=== PATIENT | male | born 1990 | race Caucasian/White ===

== ENCOUNTER 2017-09-27 14:51 | Emergency (ER) | payer OTHER ==
[~2017-09-27] VITALS: Ht 170.2 cm; Wt 46.7 kg
--- OUTSIDE RECORDS SUMMARY | ~2017-09-27 | XMS | Clinical Summary ---
Demographics + + + | Address | [address] [place] [address] RD | | | [place] [address] | + + + | Home Phone | | + + + | Preferred Language | Unknown | + + + | Marital Status | Single | + + + | Latter Day Affiliation | ORTHODOX | + + + | Race | White | + + + | Ethnic Group | Not or | + + + Author + + + | Author | [facility] | + + + | Organization | [facility] | + + + | Address | Unknown | + + + | Phone | Unavailable | + + + Support + + + + + | Name | Relationship | Address | Phone | + + + + + | Clinton Kim | ECON | [address] | | | | | [place] | | | | | [address] | | + + + + + Care Team Providers + +------+ + | Care Die Sinking Machine Operator Name | Role | Phone | + +------+ + | Misc, Doctor | PP | Unavailable | + +------+ + Allergies + + + +--------+ + | Active Allergy | Reactions | Severity | Noted | Comments | | | | | Date | | + + + +--------+ + | Morphine | | | | | + + + +--------+ + Current Medications + + +-------+---------+------+------+-------+ | Prescription | Sig. | Disp. | Refills | Star | End | Statu | | | | | | t | Date | s | | | | | | Date | | | + + +-------+---------+------+------+-------+ | levetiracetam | Take 6 mLs by mouth | | 12 | 06/1 | | Activ | | (KEPPRA) 100 mg/mL | 2 Times Daily As | | | 8/20 | | e | | solution | Needed. | | | 10 | | | + + +-------+---------+------+------+-------+ | lansoprazole | Take 1 tablet by | | 0 | 06/1 | | Activ | | (PREVACID SOLUTAB) | mouth Daily. | | | 7/20 | | e | | 30 mg disintegrating | | | | 10 | | | | tablet | | | | | | | + + +-------+---------+------+------+-------+ | cloNIDine | Take 1 tablet by | | 3 | 06/1 | | Activ | | (CATAPRES) 0.1 mg | mouth At Bedtime. | | | 7/20 | | e | | tablet | | | | 10 | | | + + +-------+---------+------+------+-------+ | glycopyrrolate | Take 2 tablets by | | 0 | 06/1 | | Activ | | (ROBINUL) 1 mg | mouth Daily. | | | 7/20 | | e | | tablet | | | | 10 | | | + + +-------+---------+------+------+-------+ | polyethylene | Take 1 packet by | | 0 | 06/1 | | Activ | | glycol (MIRALAX) 17 | mouth Daily As | | | 7/20 | | e | | gram/dose powder | Needed. | | | 10 | | | + + +-------+---------+------+------+-------+ | amLODIPine | Take 1 tablet by | | 6 | 06/ | | Activ | | (NORVASC) 5 mg | mouth Daily. | | | 7/20 | | e | | tablet | | | | 10 | | | + + +-------+---------+------+------+-------+ Active Problems Not on file Social History + +-------+ +--------+------+ | Tobacco Use | Types | Packs/Day | Years | Date | | | | | Used | | + +-------+ +--------+------+ | Never Assessed | | | | | + +-------+ +--------+------+ + + + | Sex Assigned at | Date Recorded | | | | + + + | Not on file | | + + + Plan of Treatment + + + + + | Health Maintenance | Due Date | Last Done | Comments | + + + + + | HIV Screening | | | | | | 8 | | | + + + + + | Tetanus | | | | | | 2 | | | + + + + + | IMM Influenza (#1) | | | | | | 7 | | | + + + + + | IMM HPV | Aged Out | | No longer eligible | | | | | based on patient's | | | | | age to complete this | | | | | topic | + + + + + Results Not on filefrom Last 3 Months Insurance + +--------+ +--------+ + + | Payer | Benefi | Subscriber | Type | Phone | Address | | | t Plan | ID | | | | | | / | | | | | | | Group | | | | | + +--------+ +--------+ + + | MODA ODS | MODA | [id number] | PPO | [phone] | [address] [address] | | | CONNEX | | | [phone] | [place], [place] | | | [place] | | | | [phone] | | | NETWOR | | | | | | | K PPO | | | | | + +--------+ +--------+ + + | [place]ICA[place] | MEDICA | [id number] | Medica | [phone] [address] [address] | | | [place] | | id | [id number] | [place] [phone] | | | DMAP | | | | | + +--------+ +--------+ + + + +--------+ +--------+ + + | Guarantor Name | Accoun | Relation to | Date | Phone | Billing Address | | | t Type | Patient | of | | | | | | | | | | + +--------+ +--------+ + + | CLINTON KIM | Person | Mother | [birth year] | Home: | [address] | | | al/Fam | | 1959 | [phone] | [place] [address] | | | roya | | | [phone] | | + +--------+ +--------+ + +"
--- OUTSIDE RECORDS SUMMARY | ~2017-09-27 | XMS | Clinical Summary ---
Demographics + + + | Address | [address] [place] [address] RD | | | [place] [address] | + + + | Home Phone | | + + + | Preferred Language | Unknown | + + + | Marital Status | Single | + + + | Synagogue Affiliation | MET | + + + [...] Team Providers + +------+ + | Care Push Connector Assembler Name | Role | Phone | + +------+ + | Augusto Karimi MD | PP | | + +------+ + Source Comments LINDABECK is fully live on both EpicCare Ambulatory and EpicCare InPatient.[facility] Allergies + + + + + + [...] | Activ | | Magnesium (NEXIUM | tube-termite control servicer | | | | | e | [...] | | | | Activ | | seecqyqonhhj-iyor-vi | once daily. | | | | [...] | | + + + + | Fysasdefa-J4Q9-31 | 06/04/2009 | | + + + [...] | | 2013 | 0 | | [id number]: Qty: 1 | | [place] | | [...] | | | | | | | [address] | + +------+--------+ +--------+--------+--------+ | Tisseel Vh Sd 4ml (Fibrin | | N/A: | KEITA | | 03/02/ | [id number] | | Glue) Dehp - | | Spine | HEALTHCARE | | 2014 | 7 | | [id number]: Qty: | | | | | | /[id number] | | 1 on 07/24/2013 by Preston, | | | | | | [id number] | | MD Crow | | | | | | 7 | | | | | | | | /[id number] | | | | | | | | 094 | + +------+--------+ +--------+--------+--------+ | Implant Duragen Suturable 1 X | | N/A: | INTEGRA | | 11/30/ | DURS13 | | 3 - [id number]: Qty: | | Spine | LIFESCIENCE | | 2014 | 91 / | | 1 on 09/02/2013 by Preston, | | | S | | | /[id number] | | MD Crow | | | | | | 12 | + +------+--------+ +--------+--------+--------+ | Tisseel Frozen 10ml - | | N/A: | KEITA | | 01/30/ | [id number] | | [id number]: Qty: 1 on | | Spine | [...]
--- OUTSIDE RECORDS SUMMARY | ~2017-09-27 | XMS | Clinical Summary ---
Demographics + + + | Address | [address] [place] [address] RD | | | [place] [address] | + + + | Home Phone | | + + + | Preferred Language | Unknown | + + + | Marital Status | Single | + + + | Buddhism Affiliation | MET | + + + [...] Team Providers + +------+ + | Care Instrument Technician Name | Role | Phone | + +------+ + | Augusto Karimi MD | PP | | + +------+ + Source Comments LINDABECK is fully live on both EpicCare Ambulatory and EpicCare InPatient.[facility] Allergies + + + + + [...] Activ | | Magnesium (NEXIUM | tube-terminal computer operator | | | | | e | [...] | | | | Activ | | mohpzzqozqbz-umts-ow | once daily. | | | | [...] | | + + + + | Vtqcetgpc-B2A7-24 | 06/04/2009 | | + + + [...] | | 2013 | 0 | | [id number]: Qty: 1 | | [place] | | [...] | | | | | | | [address] | + +------+--------+ +--------+--------+--------+ | Tisseel Vh Sd 4ml (Fibrin | | N/A: | KEITA | | 03/02/ | [id number] | | Glue) Dehp - | | Spine | HEALTHCARE | | 2014 | 7 | | [id number]: Qty: | | | | | | /[id number] | | 1 on 07/24/2013 by Preston, | | | | | | [id number] | | MD Crow | | | | | | 7 | | | | | | | | /[id number] | | | | | | | | 094 | + +------+--------+ +--------+--------+--------+ | Implant Duragen Suturable 1 X | | N/A: | INTEGRA | | 11/30/ | DURS13 | | 3 - [id number]: Qty: | | Spine | LIFESCIENCE | | 2014 | 91 / | | 1 on 09/02/2013 by Preston, | | | S | | | /[id number] | | MD Crow | | | | | | 12 | + +------+--------+ +--------+--------+--------+ | Tisseel Frozen 10ml - | | N/A: | KEITA | | 01/30/ | [id number] | | [id number]: Qty: 1 on | | Spine | [...]
--- OUTSIDE RECORDS SUMMARY | ~2017-09-27 | XMS | Clinical Summary ---
Demographics + + + | Address | [address] [place] [address] RD | | | [place] [address] | + + + | Home Phone | | + + + | Preferred Language | Unknown | + + + | Marital Status | Single | + + + | Scientology Affiliation | HINDUISM | + + + | Race | [...] | + + + + + | lCinton Kim | ECON | [address] | | | | | [place] | | | | | [address] | | + + + + + Care Team Providers + +------+ + | Care Steel Spar Operator Name | Role | Phone | [...] + | MODA ODS | MODA | [id number] | PPO | [phone] | [address] [address] | | | CONNEX | | | [phone] | [place], [place] | | | [place] | | | | [phone] | | | NETWOR | | | | | | | K PPO | | | | | + +--------+ +--------+ + + | MEDICAID [place] | MEDICA | [id number] | Medica | [phone] | [address] [address] | | | [place] | | id | [phone] | [place] [phone] | | | DMAP | | | [...] | Mother | [birth year] | Home: | [address] | | | al/Fam | | 1959 | [phone] | [place] [address] | | | roya | | | [phone] | | + +--------+ +--------+ + +"
[~2017-09-27 14:51] MED LIST: ACETAMINOPHEN12.5 ML PO; ACETAMINOPHEN325 M1 PO; ACETAMINOPHEN325 M1 PT; ACETAMINOPHEN500 MG PT; ACIDOPHILUS1 EAC3 PO; ALOE VERA JUICE GT; AMBIEN5 MG GT; AMOXICILLI250 MG/5 M PT; ATIVAN0.5 MG PO; BACLOFEN PUMP IT; BACLOFEN10 MG GT; BACLOFEN20 MG PO; BACTRIM DS TAB1 EACH PO; BENADRYL A12.5 MG/5 PT; BENADRYL25 MG PO; BISAC-EVAC10 MG PR; CARAFATE1 GM GT; CARAFATE1 GM PO; CENTRUM MU9 MG/15 ML PT; CIPROFLOXACIN500 MG PT; CLEOCIN HCL300 MG PO; CYPROHEPTADINE H4 MG PO; DESITIN DIAPER28 GM TOP; FLAGYL500 MG PO; GABLOFEN IT; GAS FREE125 MG GT; GAVISCON ES TA1 EACH PO; GERITOL TONIC118 ML PT; JEVITY 1.2 CA1500 ML GT; JEVITY 1.5 CA1000 ML PO; KEPPRA100 MG/1 M PO; LEVAQUIN500 MG PO; LIDOCAINE HCL100 ML TOP; MAG-OXIDE400 MG PT; MARIJUANA GT; MIRALAX17 GM PO; NEXIUM20 MG PO; NEXIUM20 MG PT; NEXIUM40 M1 PT; NEXIUM40 MG GT; NYSTOP60 GM TOP; OMEPRAZOLE20 M1 PO; OXYCODONE HCL5 MG PO; PHENADOZ25 MG PR; PHENERGAN25 MG PR; PROBIOTIC1 EAC1 GT; REGLAN10 MG PO; SENNOSIDES8.6 MG PT; SENOKOT8.6 MG PO; SIMETHICONE80 MG PO; SUCRALFATE1 GM PO; SULFAMETHOXAZO473 ML PO; TIZANIDINE HCL4 MG GT; TRANSDERM-SCOP1 EA TD; ZANAFLEX4 MG PO; ZOFRAN4 MG/5 ML PO; [UNRECOGNIZED DRUG - OTHER]; [UNRECOGNIZED DRUG - OTHER] IT; baclofen pump
[2017-09-27] MEDS ORDERED: BACLOFEN10 MG PT (15:17)
[2017-09-27] MEDS ORDERED: CETIRIZINE1 MG/1 ML PO (15:22)
[2017-09-27] MEDS ORDERED: PERCOCET 7.5-31 EACH PO (18:19)
[2017-09-27] MEDS ORDERED: XANAX0.5 MG PO (18:19)
[2017-09-27] MEDS ORDERED: LEVAQUIN500 MG PO (18:20)
== END 2017-09-27 18:29 | disposition home or self-care (01) ==
LOC: ED 14:51
PROC: 0T9B70Z Drainage of Bladder with Drainage Device, Via Natural or Artificial Opening (ICD-10-PCS; principal; 2017-09-27)
DX: N39.0 Urinary tract infection, site not specified (principal); K21.9 Gastro-esophageal reflux disease without esophagitis; Z88.5 Allergy status to narcotic agent; Z88.8 Allergy status to other drugs, medicaments and biological substances; Z88.1 Allergy status to other antibiotic agents; Z79.899 Other long term (current) drug therapy
CPT/HCPCS: 51701; 74177; 80053; 81001; 83690; 85025; 96374; 96375; 96376; 99284; J1170; J2060; J2405; J7030; Q9967

== ENCOUNTER 2017-09-28 12:51 | Inpatient (IN) | payer OTHER ==
[~2017-09-28] VITALS: Ht 170.2 cm; Wt 49.0 kg
[~2017-09-28 12:51] MED LIST changes: +BACLOFEN10 MG PT; +CETIRIZINE1 MG/1 ML PO; +PERCOCET 7.5-31 EACH PO; +XANAX0.5 MG PO
--- OUTSIDE RECORDS SUMMARY | 2017-09-28 13:14 | XMS | Clinical Summary ---
Demographics + + + | Address | [address] [place] [address] RD | | | [place] [address] | + + + | Home Phone | | + + + | Preferred Language | Unknown | + + + | Marital Status | Single | + + + | Congregation Affiliation | MET | + + + | Race | White | + + + | Ethnic Group | Not or | + + + Author + + + | Author | NON REVENUE LOCATIONS | + + + | Organization | NON REVENUE LOCATIONS | + + + | Address | Unknown | + + + | Phone | Unavailable | + + + Care Team Providers + +------+ + | Care School Psychology Specialist Name | Role | Phone | + +------+ + | Augusto Karimi MD | PP | | + +------+ + Source Comments LINDABECK is fully live on both EpicCare Ambulatory and EpicCare InPatient.[facility] Allergies + + + + + + | Active Allergy | Reactions | Severity | Noted | Comments | | | | | Date | | + + + + + + | Amoxicillin | Unknown | Medium | 04/16/20 | hepatitis | | | | | 13 | | + + + + + + | Morphine | Hives | | 05/05/20 | Tolerates | | | | | 09 | hydromorphone | + + + + + + | Oxacillin | Unknown | High | 04/16/20 | aplastic anemia | | | | | 13 | | + + + + + + | Vancomycin | | | 10/04/19 | 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 | + + + + + + Current Medications + + +---------+---------+------+------+-------+ | Prescription | Sig. | Disp. | Refills | Star | End | Statu | | | | | | t | Date | s | | | | | | Date | | | + + +---------+---------+------+------+-------+ | ondansetron 4 mg/5 | Take 5 mL by mouth | 50 mL | 1 | 05/1 | | Activ | | mL Oral Solution | every eight hours as | | | 2/20 | | e | | | needed for | | | 12 | | | | | nausea/vomiting. | | | | | | + + +---------+---------+------+------+-------+ | Esomeprazole | 40 mg by Jejunostomy | | | | | Activ | | Magnesium (NEXIUM | tube-intermediate manager | | | | | e | | PACKET) 40 mg Oral | route two times | | | | | | | Granules DR for susp | daily. Indications: | | | | | | | in | GASTROESOPHAGEAL | | | | | | | PacketIndications: | REFLUX | | | | | | | gastroesophageal | | | | | | | | reflux disease | | | | | | | + + +---------+---------+------+------+-------+ | sucralfate 1 gram | 1 g by Gastric tube | | | | | Activ | | Oral | route two times | | | | | e | | tabletIndications: | daily. Indications: | | | | | | | gastroesophageal | GASTROESOPHAGEAL | | | | | | | reflux disease | REFLUX | | | | | | + + +---------+---------+------+------+-------+ | acetaminophen 500 | Take 500 mg by mouth | | | | | Activ | | mg oral tablet | every four hours as | | | | | e | | | needed (through G | | | | | | | | tube). | | | | | | + + +---------+---------+------+------+-------+ | MEDICAL MARIJUANA | four times daily. | | | | | Activ | | | | | | | | e | + + +---------+---------+------+------+-------+ | baclofen 20 mg | Take 20 mg by mouth | | | | | Activ | | oral tablet | three times daily. | | | | | e | + + +---------+---------+------+------+-------+ | | Take 15 mL by mouth | | | | | Activ | | tewkaslhteig-huvc-lv | once daily. | | | | | e | | nerals 9 mg iron/15 | | | | | | | | mL oral liquid | | | | | | | + + +---------+---------+------+------+-------+ | Cetirizine 5 mg/5 | Take by mouth once | | | | | Activ | | mL oral solution | daily. | | | | | e | + + +---------+---------+------+------+-------+ | geriatric iron-vit | Take by mouth once | | | | | Activ | | B complex oral | daily. | | | | | e | | liquid | | | | | | | + + +---------+---------+------+------+-------+ | POLOXAMER (ORAL | Use as directed | | | 03/03 | | Activ | | HYGIENE PRODUCTS DT) | | | | 10/20 | | e | | | | | | 12 | | | + + +---------+---------+------+------+-------+ | LACTOBACILLUS | by Per G Tube route. | | | | | Activ | | ACIDOPHILUS | | | | | | e | | (PROBIOTIC ORAL) | | | | | | | + + +---------+---------+------+------+-------+ | | 1 tablet by feeding | 20 | 0 | 05/04 | | Activ | | trimethoprim-sulfame | tube route two times | tablet | | 0 | | e | | thoxazole 160-800 mg | daily. | | | 15 | | | | oral tablet | | | | | | | + + +---------+---------+------+------+-------+ | SENNA 8.6 mg oral | | | 0 | 07/03 | | Activ | | tablet | | | | 02/19 | | e | | | | | | 16 | | | + + +---------+---------+------+------+-------+ | amoxicillin 250 | | | 0 | 01/1 | | Activ | | mg/5 mL oral | | | | 8/20 | | e | | suspension for | | | | 16 | | | | reconstitution | | | | | | | + + +---------+---------+------+------+-------+ | PHENADOZ 25 mg | | | 0 | 01/1 | | Activ | | rectal suppository | | | | 8/20 | | e | | | | | | 16 | | | + + +---------+---------+------+------+-------+ | lidocaine viscous | | | 0 | 01/2 | | Activ | | 2 % mucous membrane | | | | 0/20 | | e | | solution | | | | 16 | | | + + +---------+---------+------+------+-------+ | LAXATIVE, | | | 0 | 01/1 | | Activ | | BISACODYL, 10 mg | | | | 8/20 | | e | | rectal suppository | | | | 16 | | | + + +---------+---------+------+------+-------+ | ALLERGY | | | 0 | / | | Activ | | RELIEF,DIPHENHYDRAMI | | | | 02/19 | | e | | N, 12.5 mg/5 mL oral | | | | 16 | | | | liquid | | | | | | | + + +---------+---------+------+------+-------+ Active Problems + + + | Problem | Noted Date | + + + | Acquired megacolon | 05/22/2015 | + + + | Pneumonia due to Pseudomonas (HCC) | 05/22/2015 | + + + | Community acquired pneumonia | 12/18/2013 | + + + | Pain | 12/16/2013 | + + + | Cerebral palsy, quadriplegic (HCC) | 09/21/2013 | + + + | Urinary retention | 09/21/2013 | + + + | Failure to thrive in adult | 09/21/2013 | + + + | Baclofen pump failure | 07/24/2013 | + + + | RED CELL ANTIBODIES - allow additional time for crossmatch | 07/23/2013 | + + + + + | Overview: 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 These antibodies can | | cause hemolytic anemia and interfere with identification of other | | antibodies and compatibility testing. Allow at 4-6 hours for | | completion of compatibility testing. | + + + + + | Abdominal pain | 07/17/2013 | + + + | Withdrawal syndrome, baclofen | 07/09/2013 | + + + | UTI (lower urinary tract infection) | 06/21/2013 | + + + | Spasticity | 04/16/2013 | + + + | Sepsis (HCC) | 10/29/2011 | + + + + + | Overview: ICD10 | + + + + + | Altered bowel function | 08/17/2011 | + + + | CN (constipation) | 08/17/2011 | + + + + + | Overview: Overview: | | ICD-10 Record update | + + + + + | Acid reflux | 08/17/2011 | + + + | S/P spinal fusion | 02/08/2011 | + + + | Esophagitis | 09/23/2010 | + + + | Diarrhea | 09/23/2010 | + + + | Hypoxia, sleep related | 09/23/2010 | + + + | Static encephalopathy | 09/12/2010 | + + + | Scoliosis | 09/12/2010 | + + + | Colonic dysmotility | 09/12/2010 | + + + | Seizure disorder (HCC) | 09/12/2010 | + + + | Feeding by G-tube (HCC) | 09/12/2010 | + + + | Reflux | 09/12/2010 | + + + | Hypotension | 09/12/2010 | + + + | Bacteremia | 09/12/2010 | + + + | Vomiting | 08/31/2010 | + + + Immunizations + + + + | Name | Dates Previously Given | Next Due | + + + + | DTP-Hib | 12/29/1993 | | + + + + | DTaP | 11/19/1997, 05/05/1993, 1992 | | + + + + | HepA-Ped 2 Dose | 05/11/2004, 09/30/2003 | | + + + + | HepB-Peds | 05/05/1993, 1992 | | + + + + | Hib-OMP | 05/05/1993, 1992 | | + + + + | Influenza, split | 04/13/2009, 05/01/2007, 05/11/2004, | | | | 04/23/1998, 05/11/1995, 06/20/1994 | | + + + + | Uxgfhkazw-Z8I8-83 | 06/04/2009 | | + + + + | MCV4P | 05/01/2007 | | + + + + | MMR | 11/19/1997, 12/29/1993 | | + + + + | Polio-Oral | 11/19/1997, 12/29/1993, 1992 | | + + + + | Td (adult), adsorbed | 09/30/2003 | | + + + + | Tdap | 05/01/2007 | | + + + + Social History + +-------+ +--------+------+ | Tobacco Use | Types | Packs/Day | Years | Date | | | | | Used | | + +-------+ +--------+------+ | Never Smoker | | | | | + +-------+ +--------+------+ + +---+---+---+ | Smokeless Tobacco: | | | | | Never Used | | | | + +---+---+---+ + + +---------+ + | Alcohol Use | Drinks/We | oz/Week | Comments | | | ek | | | + + +---------+ + | No | 0 | 0.0 | | | | Standard | | | | | drinks or | | | | | | | | | | equivalen | | | | | t | | | + + +---------+ + + + + | Sex Assigned at | Date Recorded | | | | + + + | Not on file | | + + + Last Filed Vital Signs + + + + | Vital Sign | Reading | Time Taken | + + + + | Blood Pressure | 121/75 | 05/14/2015 11:44 AM PST | + + + + | Pulse | 86 | 05/22/2015 4:10 PM PST | + + + + | Temperature | 37 C (98.6 F) | 05/14/2015 11:44 AM PST | + + + + | Respiratory Rate | 18 | 05/14/2015 11:44 AM PST | + + + + | Oxygen Saturation | 99% | 05/14/2015 11:44 AM PST | + + + + | Inhaled Oxygen | - | - | | Concentration | | | + + + + | Weight | 42.3 kg (93 lb 3.2 | 05/21/2015 10:42 AM PST | | | oz) | | + + + + | Height | 170.2 cm (5' 7") | 05/21/2015 10:42 AM PST | + + + + | Body Mass Index | 14.6 | 05/21/2015 10:42 AM PST | + + + + Plan of Treatment + + + + + | Health Maintenance | Due Date | Last Done | Comments | + + + + + | INFLUENZA VACCINE | | 04/13/2009, 05/01/2007, | | | (FLU SHOT): NO | 7 | 05/11/2004, Additional history | | | MYCHART REMINDER | | exists | | + + + + + Implants + +------+--------+ +--------+--------+--------+ | Implanted | Type | Area | Manufacture | Device | Expira | Model | | | | | r | | tion | / | | | | | | Identi | Date | Serial | | | | | | fier | | / Lot | + +------+--------+ +--------+--------+--------+ | Pump Implantable Synchromed | | Right: | MEDTRONIC | | 05/02/ | [id number] | | Ii 40ml - | | | [place] | | 2013 | 0 | | [id number]: Qty: 1 | | [place] | | | | /[id number] | | on 04/29/2013 by Preston, | | n | | | | [id number] | | MD Crow | | | | | | / | + +------+--------+ +--------+--------+--------+ | Ascenda Intrathecal | | Right: | MEDTRONIC | | 08/14/ | [id number] / | | CatheterImplanted: Qty: 1 on | | Spine | NEUROLOGICA | | 2015 | | | 07/24/2013 by Crow Johnston, | | | L | | | /[id number] | | | | | | | | [id number] | + +------+--------+ +--------+--------+--------+ | Tisseel Vh Sd 4ml (Fibrin | | N/A: | KEITA | | 03/02/ | [id number] | | Glue) Dehp - | | Spine | HEALTHCARE | | 2014 | 7 | | [id number]: Qty: | | | | | | /[id number] | | 1 on 07/24/2013 by Preston, | | | | | | [id number] | | MD Crow | | | | | | 7 | | | | | | | | /[id number] | | | | | | | | 094 | + +------+--------+ +--------+--------+--------+ | Implant Duragen Suturable 1 X | | N/A: | INTEGRA | | 11/30/ | DURS13 | | 3 - [id number]: Qty: | | Spine | LIFESCIENCE | | 2014 | 91 / | | 1 on 09/02/2013 by Preston, | | | S | | | /[id number] | | MD Crow | | | | | | 12 | + +------+--------+ +--------+--------+--------+ | Tisseel Frozen 10ml - | | N/A: | KEITA | | 01/30/ | [id number] | | [id number]: Qty: 1 on | | Spine | HEALTHCARE | | 2014 | 3 / | | 09/02/2013 by Crow Johnston, | | | | | | /[id number] | | MD | | | | | | 074 | + +------+--------+ +--------+--------+--------+ + +------+-------+ +--------+--------+--------+ | Explanted | Type | Area | Manufacture | Device | Expira | Model | | | | | r | | tion | / | | | | | | Identi | Date | Serial | | | | | | fier | | / Lot | + +------+-------+ +--------+--------+--------+ | Intrathecal | | N/A: | | | | | | CatheterExplanted: Qty: 1 on | | Spine | | | | | | 07/24/2013 by Crow Johnston, | | | | | | | | MD | | | | | | | + +------+-------+ +--------+--------+--------+ Results Not on filefrom Last 3 Months
--- OUTSIDE RECORDS SUMMARY | 2017-09-28 13:14 | XMS | Clinical Summary ---
Demographics + + + | Address | [address] [place] [address] RD | | | [place] [address] | + + + | Home Phone | | + + + | Preferred Language | Unknown | + + + | Marital Status | Single | + + + | Adventism Affiliation | MET | + + + [...] Team Providers + +------+ + | Care Indian Nanny Name | Role | Phone | + +------+ + | Augusto Karimi MD | PP | | + +------+ + Source Comments LINDABECK is fully live on both EpicCare Ambulatory and EpicCare InPatient.[facility] Allergies + + + + + + [...] | Activ | | Magnesium (NEXIUM | tube-longwall foreman | | | | | e | [...] | | | | Activ | | dclsfbfoafvc-qokt-pn | once daily. | | | | [...] | | + + + + | Xrqllqvwy-L2L4-89 | 06/04/2009 | | + + + [...] | | 2013 | 0 | | [id number]: Qty: 1 | | [place] | | [...] | | | | | | | [address] | + +------+--------+ +--------+--------+--------+ | Tisseel Vh Sd 4ml (Fibrin | | N/A: | KEITA | | 03/02/ | [id number] | | Glue) Dehp - | | Spine | HEALTHCARE | | 2014 | 7 | | [id number]: Qty: | | | | | | /[id number] | | 1 on 07/24/2013 by Preston, | | | | | | [id number] | | MD Crow | | | | | | 7 | | | | | | | | /[id number] | | | | | | | | 094 | + +------+--------+ +--------+--------+--------+ | Implant Duragen Suturable 1 X | | N/A: | INTEGRA | | 11/30/ | DURS13 | | 3 - [id number]: Qty: | | Spine | LIFESCIENCE | | 2014 | 91 / | | 1 on 09/02/2013 by Preston, | | | S | | | /[id number] | | MD Crow | | | | | | 12 | + +------+--------+ +--------+--------+--------+ | Tisseel Frozen 10ml - | | N/A: | KEITA | | 01/30/ | [id number] | | [id number]: Qty: 1 on | | Spine | [...]
--- OUTSIDE RECORDS SUMMARY | 2017-09-28 15:27 | XMS | Clinical Summary ---
Demographics + + + | Address | [address] [place] [address] RD | | | [place] [address] | + + + | Home Phone | | + + + | Preferred Language | Unknown | + + + | Marital Status | Single | + + + | Hindu Affiliation | MET | + + + [...] Team Providers + +------+ + | Care Diamond Powder Technician Name | Role | Phone | + +------+ + | Augusto Karimi MD | PP | | + +------+ + Source Comments LINDABECK is fully live on both EpicCare Ambulatory and EpicCare InPatient.[facility] Allergies + + + + [...] | Activ | | Magnesium (NEXIUM | tube-terminal supervisor | | | | | e | [...] | | | | Activ | | xdwpqgfvfyuf-hrtu-bb | once daily. | | | | [...] | | + + + + | Wghzsqkyy-X7H0-81 | 06/04/2009 | | + + + [...] | | 2013 | 0 | | [id number]: Qty: 1 | | Abdome | | [...] | | | | | | | [id number] | + +------+--------+ +--------+--------+--------+ | Tisseel Vh Sd 4ml (Fibrin | | N/A: | KEITA | | 03/02/ | [id number] | | Glue) Dehp - | | Spine | HEALTHCARE | | 2014 | 7 | | [id number]: Qty: | | | | | | /[id number] | | 1 on 07/24/2013 by Preston, | | | | | | [id number] | | MD Crow | | | | | | 7 | | | | | | | | /[id number] | | | | | | | | [id number] | + +------+--------+ +--------+--------+--------+ | Implant Duragen Suturable 1 X | | N/A: | INTEGRA | | 11/30/ | [id number] | | 3 - [id number]: Qty: | | Spine | LIFESCIENCE | | 2014 | 91 / | | 1 on 09/02/2013 by Preston, | | | S | | | /[id number] | | MD Crow | | | | | | 12 | + +------+--------+ +--------+--------+--------+ | Tisseel Frozen 10ml - | | N/A: | KEITA | | 01/30/ | [id number] | | [id number]: Qty: 1 on | | Spine | [...]
--- NOTE | 2017-09-28 15:50 | NUR ---
27 YEAR OLD MALE PT ADMITTED TO CCU FROM ED VIA STRETCHER. DX OF SEPSIS, RLL PNEUMONIA. HAS SEVERE CERERAL PALSY. PATIENT MOTHER HERE. ADMISSION PROCESS STARTED. IV BOLUS INFUSING TO 22 GA IN LEFT HAND.
--- NOTE | 2017-09-28 16:30 | NUR ---
HAS BEEN REPOSITIONED SEVERAL TIME. IS MOANING AND CRYING IN PAIN. PT MOTHER ASKED THAT ATIVAN BE GIVEN INSTEAD OF DILAUDID. MOTHER SAID THE ATIVAN HELP MORE THAN THE DILAUDID.
--- NOTE | 2017-09-28 16:40 | NUR ---
GTUBE OPEN TO GRAVITY SPRAGUE BAG.
--- NOTE | 2017-09-28 17:00 | NUR ---
ATIVAN 1 MG IV GIVEN.
--- NOTE | 2017-09-28 17:30 | NUR ---
TOOK SEVERAL STICKS TO GET 2ND IV SITE. BOLUS CONTINUE TO INFUSE. IV ANTIBOTICS HUNG.
--- NOTE | 2017-09-28 18:45 | NUR ---
DILAUDID 0.25 MG IV GIVEN FOR PAIN. PATIENT IS SAYING "OWIE", REPEATING THIS OFTEN. ABD IS FIRM.
--- NOTE | 2017-09-28 18:45 | NUR ---
MOTHER REMAINS IN ROOM AND HAS BEEN VERY HELPFUL.
--- NOTE | 2017-09-28 18:50 | NUR ---
DR. MARLEY UPDATED ON PATIENT V.S. AND OVERALL STATUS. ORDERS RECIEVED.
--- NOTE | 2017-09-28 19:00 | NUR ---
SPRAGUE CATH PLACED WITH RETURN OF 40 ML OF CONCENTRATED URINE.
--- NOTE | 2017-09-28 19:22 | NUR ---
ORAL CARE COMPLETED AND MOSITURE ADDED.
--- NOTE | 2017-09-28 19:32 | NUR ---
REPORT TO NEXT SHIFT. PATIENT CONTINUE TO MOAN OUT LOUDLY.
--- NOTE | 2017-09-28 19:56 | NUR ---
PATIENT LYING IN BED AT THIS TIME AND APPEARS VERY UNCOMFORTABLE. PT IS GROANING AND MOANING OUT. PT FEELS WARM TO TOUCH AND IS NOTED TO HAVE 101.1 TEMP AXILLARY. HEART RATE IN THE 130-160S SINUS TACH. SPRAGUE DRAINING CLEAR YELLOW URINE AND EMPTIED AT THIS TIME FOR 150 ML. PT'S MOTHER CLINTON AT BEDSIDE AND IS PATIENT'S PRIMARY CAREGIVER AND VERY ATTENTIVE TO PATIENT. LUNGS ARE COARSE, MORE SO ON THE RIGHT SIDE. SP02 RANGES FROM 90-95% ON 3 L NC. D5 LR INFUSING AT 125 ML/HR INTO RIGHT FOOT IV SITE. PT'S G TUBE IS CONNECTED TO GRAVITY DRAIN AT THIS TIME, AND GREEN BILOUS LIKE FLUID NOTED TO BE DRAINING. PT ALSO HAVE IV SITE IN LEFT HAND/WRIST AREA. THIS SITE DOES NOT FLUSH AND IS KINKED OVER AND D/C AT THIS TIME. LAB NOW IN ROOM TO DRAW REPEAT BLOOD CULTURES. CONTINUE TO MONITOR.
--- NOTE | 2017-09-28 21:06 | EKG ---
[facility] [address] [facility] [place], [place] [address] Signed Sinus tachycardia Nonspecific ST abnormality Abnormal ECG When compared with ECG of 03-AUG-2017 18:10, No significant change was found Confirmed by VERENA MARLEY MD ([id number]) on 09/28/2017 9:05:58 PM Electronically Signed By: VERENA MARLEY MD 09/28/17 2106 PATIENT NAME: ROLAND MARIN HICKS Electrocardiogram DATE OF : [birth year] PHYSICIAN: VERENA MARLEY MD REPORT #: [id number] REPORT IS CONFIDENTIAL AND NOT TO BE RELEASED WITHOUT AUTHORIZATION
--- NOTE | 2017-09-28 21:25 | NUR ---
DR. MARLEY UPDATED ON PT'S FEVER AND BLOOD CULTURE DRAWS. PT GIVEN NORMAL PM MEDICATIONS THROUGH G TUBE AND TOLERATED WELL; G TUBE CLAMPED AT THIS TIME. NEW ORDER REC'D FOR IV TORADOL AND 15 MG IV GIVEN AT THIS TIME. PT TURNED TO LEFT SIDE AND REPOSITIONED WITH PILLOWS AND SEEMS TO BE MORE COMFORTABLE AT THIS TIME. HEART RATE NOTED TO BE TRENDING DOWN TO THE MID 110s BUT STILL RANGING 110-130. LAST HR URINE OUTPUT WAS 35 ML. CONTINUE TO MONITOR THIS HOURLY. IV ZOSYN TO BE GIVEN. 2ND IV SITE TO BE OBTAINED AT SOME POINT IF POSSIBLE. CONTINUE TO MONITOR.
--- NOTE | 2017-09-28 23:48 | NUR ---
ATTEMPTED MIDLINE IN PATIENT'S RIGHT UPPER ARM BUT WAS UNSUCCESSFUL AT ADVANCING WIRE. IV SITE LEFT IN RIGHT BASILIC VEIN AND 2ND BLOOD CULTURE OBTAINED FROM THIS SITE. PT CONTINUES TO BE IN EXTREME PAIN, AND IS UNCONSOLABLE. PT CAN BE HEARD SCREAMING "OWIE OWIE OWIE." PATIENT GIVEN PRN DILAUDID WITHOUT RELIEF OF PAIN SYMTPOMS. PT ALSO HAS HAD A DECREASE IN URINE OUTPUT. DR. MARLEY TO BE NOTIFIED. IVF CONTINUE AT 125 ML/HR. PT TURNED TO LEFT SIDE AT THIS TIME AND POSITIONED WITH PILLOWS. PT'S MOTHER IN ROOM AND ATTENTIVE TO PATIENT. CONTINUE TO MONITOR.
--- NOTE | 2017-09-29 00:02 | NUR ---
PATIENT CONTINUES TO BE IN EXTREME AMOUNTS OF PAIN AND SCREAMING OUT AND GRIMACING AND TENSING HIS BACK AND ARCHING HIS BACK. PT'S MOTHER STATES THIS IS COMPLETELY OUT OF THE NORMAL FOR HIM AND AGAIN, HE KEEPS SAYING "OWIE, YASMIN, YASMIN." HEART RATE FLUCTUTES FROM 90-130s. PT GIVEN ADDITIONAL 0.5 MG IV ATIVAN AT THIS TIME. PT'S MOTHER FEELS THAT THE NARCOTIC PAIN MEDICATIONS MAKE HIM WORSE, NOT BETTER. DR. MARLEY TO BE UPDATED.
--- NOTE | 2017-09-29 00:30 | NUR ---
DR. MARLEY CALLED AND UPDATED ON URINE OUTPUT AND ON PT'S OVERALL CONDITION AND PAIN. EXPRESSED TO DR. MARLEY PATIENT'S MOTHER'S CONTINUED VIEW ON THE NARCOTICS EXACERBATING AND MAKING HIS PAIN WORSE. ORDER REC'D TO INCREASE IV ATIVAN TO 2 MG Q2HRS PRN. ORDER ALSO REC'D TO GIVEN 1 L LR BOLUS AT THIS TIME. CONTINUE TO MONITOR CLOSELY.
--- NOTE | 2017-09-29 00:53 | NUR ---
PATIENT BEING GIVEN IV BOLUS OF LR AT THIS TIME. PT ALSO GIVEN 2 MG IV ATIVAN. PT STILL YELLING OUT AND SAYING "OWIE", BUT UNABLE TO REALLY SPECIFY WHERE HE IS HURTING AT EXACTLY. PT NOW BACK ON HIS RIGHT SIDE, WHICH IS HIS POSITION OF COMFORT MOSTLY. CONTINUE TO MONITOR. PT'S MOTHER REMAINS AT BEDSIDE.
--- NOTE | 2017-09-29 03:23 | NUR ---
PATIENT WAS ABLE TO REST AND SLEEP FROM AROUND 0100 UNTIL 0245. PATIENT THEN AT 0245 WAS NOTED BY HIS MOTHER TO BE SHIVERING AND SHAKING SOME. PT'S TEMP CHECKED AND NOTED TO BE 97.6. PT ALSO NOTED TO HAVE HAD A BM WHICH WAS A VERY MUCOUS-LIKE BM WITH AN ODD ODOR TO IT. FULL BED LINEN CHANGE PERFORMED AT THIS TIME AND IN THE ATTENDS, THERE WAS SOME BLOODY TINGED MUCOUS STOOL. THIS STOOL WAS PINKISH REDISH. STOOL SAMPLE WAS OBTAINED EASILY AND HELD AT THIS TIME UNTIL FURTHER DISCUSSION WITH DR. MARLEY. PT THEN REPOSITIONED ONTO LEFT SIDE. PT ABOUT TEN MINUTES LATER IN EXTREME PAIN AGAIN, SCREAMING OUT "OWIE!!" AND UNCONSOLABLE AGAIN. PT GIVEN 2 MG IV ATIVAN TO HELP. URINE OUTPUT AT 0300 WAS ONLY 12 ML. PT DID RECEIVE THE FULL 1 L LR BOLUS. NOW, PT SEEMING TO REST A LITTLE MORE, AND HR IN THE 110s. WHEN PATIENT IS WORKED UP AND YELLING OUT, HR UP INTO THE 170s. LAST BP 171/92 ON LEFT UPPER THIGH. SP02 IS 97% CURRENTLY ON 3 L. PT HAS BEEN HAVING A PRODUCTIVE COUGH AND WE HAVE BEEN HELPING SUCTION PATIENT. CONTINUE TO MONITOR.
--- NOTE | 2017-09-29 05:42 | NUR ---
DR. MARLEY UPDATED ON PT'S CONDITION. ORDERS REC'D TO START IV FLAGYL, INCREASE IVF TO 150 ML/HR, AND SENT STOOL SPECIMEN FOR CULTURE AND C-DIFF. CONTINUE TO MONITOR.
--- NOTE | 2017-09-29 07:02 | NUR ---
PATIENT GIVEN TORADOL AND TYLENOL AROUND 0600 FOR A TEMP OF 100.7. PT HAS BEEN SLEEPING IN THE LAST COUPLE HRS. PT'S MOTHER REMAINS ON COUCH. IVF NOW INFUSING AT 150 ML/HR. IV FLAGYL STARTED.
--- NOTE | 2017-09-29 07:35 | NUR ---
PT APPEARS TO BE RESTING QUIETLY AT THIS TIME. IV FLUIDS INFUSING EASILY, G-TUBE DRAINING TO GRAVITY SMALL AMOUT GREEN TINGED DRAINAGE. MOTHER AT BEDSIDE.
--- NOTE | 2017-09-29 08:05 | NUR ---
PT AGITATED AND RESTLESS, CRYING OUT RUBBING LEFT ARM ON LEFT SIDE OF ABD. PT APPEARS TO BE IN PAIN, MOTHER STATES THIS IS NOT HIS NORMAL BEHAVIOR.
--- NOTE | 2017-09-29 08:15 | NUR ---
2 mg IV ativan given for pain related agitation.
--- NOTE | 2017-09-29 08:51 | NUR ---
IV SITES INTACT, NO REDNESS OR SWELLING NOTED, FLUIDS INFUSE EASILY. PT APPEARS MORE COMFORTABLE AT THIS TIME, ATIVAN 2 MG IV GIVEN AT 0815. PT EXTERIOR G-TUBING AND DRAIN BAG REPLACED TODAY.
[2017-09-29] MEDS ORDERED: GERITOL TONIC118 ML GT (09:00)
[2017-09-29] MEDS ORDERED: CARAFATE1 GM/10 ML PT (09:07)
[2017-09-29] MEDS ORDERED: MAPAP500 MG/15 PT (09:09)
--- NOTE | 2017-09-29 09:44 | NUR ---
SPOKE WITH MOTHER CLINTON IN ROOM. SHE KNOWS OF NOTHING SHE NEEDS AT THIS TIME FOR DISCHARGE HOME WITH PATIENT. SHE STATES THEY HAVE OXYGEN, SUCTION, NEBULIZER, TRANSPORTATION COVERAGE, NUTRITIONAL SUPPLIES, AND A NEW LIFT SYSTEM INSTALLED. SHE WILL BE SURE TO LET STAFF KNOW IF THERE WOULD BE ANYTHING ELSE THEY MAY NEED. NO QUESTIONS AT THIS TIME.
--- NOTE | 2017-09-29 09:45 | NUR ---
pt resting quietly at this time, snoring softly, HR is 88, BP 123/51, pt appears to be in no distress. urine output has picked up in the last two hours for a total of 190 ml. mother is at bedside. all meds given per g-tube.
--- NOTE | 2017-09-29 10:14 | NUR ---
PT YELLING OUT AND SCREAMING AT TIMES, RIDGID ARMS AND LEGS, PT CALLING OUT "OWIE". 2 MG IV ATIVAN GIVEN FOR PAIN RELATED ANXIETY.
--- NOTE | 2017-09-29 10:15 | NUR ---
PT HAD INCONTINENT LIQUID STOOL, STOOL SLIGHTLY PINK/BLOOD TINGED. COMPLETE BEDCHANGE REQUIRED, PT IN CLEAN ATTENDS. PT REPOSITIONED TO LEFT SIDE WITH ASSISTNACE FROM MOTHER.
[2017-09-29] MEDS ORDERED: CHLORASEPTIC MA30 ML MM (10:52)
[2017-09-29] MEDS ORDERED: LUBRIFRESH PM3.5 GM OPTH (11:02)
--- NOTE | 2017-09-29 11:14 | NUR ---
PT GIVEN 4MG ZOFRAN IVP FOR WHAT APPEARS TO BE NAUSEA AND INCREASED BILE IN THE G-TUBE DRAINAGE BAG.
--- NOTE | 2017-09-29 11:23 | NUR ---
MED REC COMPLETE WITH [facility] REFILL HISTORY AND INTERVIEW WITH PATIENT'S MOTHER.
--- NOTE | 2017-09-29 12:15 | NUR ---
IV SITES INTACT, NO REDNESS OR SWELLING NOTED, FLUIDS INFUSING EASILY. PT GIVEN 2 MG IV ATIVAN FOR PAIN RELATED AGITATION, PT CRYING OUT AND RESTLESS. PT REPOSTIONED TO RT SIDE FROM LEFT WITH ASSISTANCE FROM MOTHER AT BEDSIDE.
--- NOTE | 2017-09-29 13:36 | NUR ---
PT RESTING QUIETLY AT THIS TIME. MOTHER AT THE BEDSIDE. VITALS WNL.
--- NOTE | 2017-09-29 15:48 | NUR ---
REPOSITIONED PT UP IN BED TO RT SIDE FROM LEFT FOR COMFORT. PT GIVEN 12.5 MG PHENERGAN IV TO PREVENT NAUSEA. PT GIVEN IV TORADOL FOR PAIN. VANCO GIVEN PER G-TUBE, AND POTASSIUM PER G-TUBE. PT OCCASIONALLY CRYING OUT.
--- NOTE | 2017-09-29 16:18 | NUR ---
IV SITES INTACT, NO REDNESS OR SWELLING NOTED, BOTH SITES FLUSH EASILY.
--- NOTE | 2017-09-29 17:15 | NUR ---
NOTIFIED OF PT ELEVATED TEMP OF 101.2, BLOOD CULTURES ORDERED.
--- NOTE | 2017-09-29 19:00 | NUR ---
MEDS GIVEN PER TUBE, FLUSHED WITH TAP WATER. PT SLEPT THROUGH MED PASS. VITALS WNL AT THIS TIME.
--- NOTE | 2017-09-29 20:52 | NUR ---
REPOSITIONED PT TO L SIDE WITH PILLOWS. PT AWAKE AND MOANING, BODY STIFFENING UP PRIOR TO MOVEMENT. HR UP TO 120'S AT THAT TIME. MOM PROVIDED ORAL CARE AND SUCTIONING DONE. HS MEDS GIVEN PER G-TUBE, CLAMPED TUBE AFTER, OTHERWISE TO GRAVITY DRAINAGE. SPRAGUE DRAINING QS YELLOW URINE. IV SITES WNL. PT BACK TO SLEEP INTERMITTENTLY. NO ATIVAN REQUIRED AT THIS TIME.
--- NOTE | 2017-09-29 22:32 | NUR ---
PT RESTING, SNORING. RR 16, SPO2 98%. NO S/S OF DISTRESS.
--- NOTE | 2017-09-29 22:56 | NUR ---
PT COULD BE HEARD CYING OUT FROM NURSES' STATION. CHECKED IN ON HIM AND HE CONTINUES TO CRY/MOAN, HE APPEARS TENSE AND IS ARCHING BACK. AXILLARY TEMP: 97.9. 2MG IV ATIVAN GIVEN AT THIS TIME.
--- NOTE | 2017-09-29 23:14 | NUR ---
REPOSITIONED PT TO R SIDE. AND 15MG TORADOL GIVEN IV. PT ASLEEP NOW.
--- NOTE | 2017-09-30 01:01 | NUR ---
PT ASLEEP. NO S/S OF DISTRESS.
--- NOTE | 2017-09-30 02:17 | NUR ---
REPOSITIONED TO L SIDE. REMAINS ASLEEP WITHOUT DISTRESS.
--- NOTE | 2017-09-30 03:12 | NUR ---
UPDATED DR MARLEY RE: PT U/O AT 0300. PT MOANING OUT CURRENTLY "OWIE". REPOSITIONED PT TO R SIDE. MOM AT BEDSIDE. PT CALMING.
--- NOTE | 2017-09-30 04:27 | NUR ---
PT INCREASINGLY AGITATED AT 0330, YELLED OUT "I POOPED" ATTENDS WITH SCANT SMEAR. CHANGED AND PERICARED DONE. PT UNABLE TO CALM. C/O EYES ITCHING. WIPED WITH WASHCLOTHES. MOM REASSURED AND EXPLAINED MEDICATION IS NOT AVAILABLE UNTIL THE MORNING. PT REPOSITIONED TO R SIDE. NOW ASLEEP.
--- NOTE | 2017-09-30 06:19 | NUR ---
PT REMAINS ASLEEP. NO S/S OF DISTRESS.
--- NOTE | 2017-09-30 07:30 | NUR ---
BEDSIDE REPORT RECIEVED. PATIENT MOTHER IS IN ROOM. PATIENT IS MOANING. ATIVAN 1 MG IV GIVEN. ONLY 1 MG IV GIVEN PER MOTHER REQUEST.
--- NOTE | 2017-09-30 08:00 | NUR ---
ASSESSMENT DONE. CONTINUE TO MOAN, HAS OCC HARSH PRODUCTIVE COUGH. CLEAR PHLEGM SUCTIONED FORM OPA. LUNG WITH COURSE BREAH SOUNDS UPPER. IV SITES X 2 PATENT. SPRAGUE CATH PATENT. GTUBE CLAMPED AT THIS TIME. BACLOFEN 30 MG GIVEN VIA G-TUBE AND IRRIGATED WITH 20 ML OF H20. REPOSITIONED.
--- NOTE | 2017-09-30 08:05 | NUR ---
CONTINUE TO MOAN IN PAIN. TORDOL 15 MG IV GIVEN.
--- NOTE | 2017-09-30 09:00 | NUR ---
ROUTINE MEDS GIVEN VIA G-TUBE.
--- NOTE | 2017-09-30 09:02 | NUR ---
MORE RESTFUL AT THIS TIME.
--- NOTE | 2017-09-30 09:40 | NUR ---
OOB TO COMMODE VIA OVERHEAD SLING.
--- NOTE | 2017-09-30 09:50 | NUR ---
TO CHAIR VIA SLING AFTER HAVING VERY LOOSE DK GREEN STOOL. PATIENT STATES "OWIE" OVER AND OVER AGAIN.
--- NOTE | 2017-09-30 10:23 | NUR ---
STOOL SENT TO LAB. CONTINUE TO SAY "OWIE" PT MOTHER OUT OF ROOM AT THIS TIME.
--- NOTE | 2017-09-30 10:30 | NUR ---
SAID "I WHAT TO GO BACK TO BED", INC OF STOOL. TO COMMODE VIA LIFT. NO FUTHER STOOL.
--- NOTE | 2017-09-30 11:00 | NUR ---
DR. MARLEY HERE TO SEE PATIENT. ORDERS RECIEVED.
--- NOTE | 2017-09-30 11:10 | NUR ---
CRYING OUT, ATIVAN 2 MG IV GIVEN.
--- NOTE | 2017-09-30 11:39 | NUR ---
CONTINUE TO MOAN OUT LOUDLY.
--- NOTE | 2017-09-30 11:45 | NUR ---
REPORT TO MED-SURG.
--- NOTE | 2017-09-30 12:00 | NUR ---
TO MED-SURG VIA BED.
--- NOTE | 2017-09-30 12:15 | NUR ---
PT ARRIVED FROM CCU. ASSESSMENT DONE. FAMILY AT BEDSIDE. PT SMILING. FAMILY ORIENTED TO ROOM. FAMILY STATES THEY WILL BE GOING HOME TO GET SUPPLIES AND WILL BE BACK IN AN HOUR. PT REPOSITIONED TO LEFT SIDE. BED RAILS UP.
--- NOTE | 2017-09-30 13:00 | NUR ---
PT MOANING CONTINIUALLY. THIS RN NOTES PT STOPS MOANING WHEN PEOPLE ARE IN THE ROOM WITH WITH. SEE MAR FOR MEDICATION GIVEN R/T PAIN. FACES SCALE EXHIBITS 5/10 PAIN. WARM BLANKETS PROVIDED. TV ON TO CALMING STATION. BED RAILS UP.
--- NOTE | 2017-09-30 14:43 | NUR ---
THIS RN TO CHECK ON PT. PT RESTING WITH EYES CLOSED, RR = 16 BPM. PEACEFUL MUSIC REMAINS ON.
--- NOTE | 2017-09-30 15:10 | NUR ---
PT COUGHING, UNABLE TO CLEAR SECRETIONS, THIS RN TO BEDSIDE TO PROVIDE SUCTION, PT VOMITING, CLEAR TO WHITE EMESIS, SUCTION PROVIDED. HEAD ELEVEATED. PT WITH 2 SMALL EPISODED OF EMESIS.
--- NOTE | 2017-09-30 15:46 | NUR ---
patient was changed nad repositioned with assist of home health cna and nurse. he is very vocal
--- NOTE | 2017-09-30 16:20 | NUR ---
PT MOANING, THIS RN TO BEDSIDE FOR ASSESSMENT. PT APPEARS IN PAIN 6/10 FACES SCALE. PIVS INFILTRATED AND LEAKING, NEW PIV STARTED PER PROTOCOL BY RN. SEE MAR FOR MEDICATIONS GIVEN. DEPENDS CHANGED, LARGE BM, DARK BROWN, LOOSE STOOL. MOTHER RETURNS TO BEDSIDE. ASSESSMENT DONE. PT REPOSITIONED, NOW ON RIGHT SIDE. PT SUCTIONED FREQUENTLY. ADDITIONAL EPISODE OF EMISIS NOTED (CLEAR LIQUID), SUCTIONED INTO CANISTER. BED RAILS UP. CALL LIGHT WITHIN FAMILY'S REACH.
--- NOTE | 2017-09-30 17:13 | CONS ---
[facility] [address], [place] [address] Signed DATE OF CONSULTATION: 09/28/2017 CONSULTING PHYSICIAN: Gordon Dietz MD. REQUESTING PHYSICIAN: Dr. Marley. PROBLEM: Apparent abdominal pain and well-established right lung pneumonia. HISTORY OF PRESENT ILLNESS: This 27-year-old white man has longstanding cerebral palsy, and spastic quadriplegia, who is essentially nonverbal. He is known to me from the past. He presented to the emergency room yesterday and additionally today initially with complaints of "abdominal pain." He had been noted not to have bowel movement in at least two days, possibly three. Constipation has been an issue for him in the distant past. Due to his significant dysphagia, a PEG tube type device was used for enteral feeding. The patient has had a baclofen pump in the past, which was ultimately found to be infected or nonfunctional in some way, and was explanted. Many of his problems of two years ago or more resolved entirely. He was evaluated yesterday and then re-evaluated today. Yesterday, a CT scan had been performed of the abdomen and pelvis, which showed the gallbladder to be absent, and appendix absent as well. A feeding PEG tube was in good position. There was no sign of free air or intraabdominal fluid particularly. There was a fair amount of stool within the cecum and gas was noted as well, as well as prominence of the cecum. Remaining colon without sign of volvulus, or other similar problem. The urinary bladder was mildly thickened, and bilateral inguinal hernias were noted to contain fluid. There was a multi lobulated mildly enlarged prostate as well. Kilgore rods were noted as well, which did obscure some of the view of the abdomen. Upon his return to the emergency room today, he was noted to have a temperature of a 101.1. Elevated white count of 22.6, and a chest x-ray and abdominal x-ray performed, which showed a right-sided pneumonia, which was not apparently present yesterday. Abdominal examination by x-ray showed some gaseous distention of the bowel loops similar to the past and level of scoliosis and Kilgore rods, but no sign of free air, or other similar problem. PHYSICAL EXAMINATION: GENERAL: He appears somewhat uncomfortable. Electronically Signed By: GORDON DIETZ MD 09/30/17 1713 PATIENT NAME: ROLAND MARIN CONSULTATION DATE OF : 89 REPORT #: [id number] PHYSICIAN: GORDON DIETZ MD PCP: EMA COKER MD REPORT IS CONFIDENTIAL AND NOT TO BE RELEASED WITHOUT AUTHORIZATION [facility] [address], [place] [address] Signed VITAL SIGNS: He has tachycardia with a heart rate of 149, a blood pressure of 118 systolic. CHEST: His chest shows mild tachypnea. He has a markedly distorted torso, and flexion contractures of the upper extremities. ABDOMEN: There is a right mid abdominal transverse incision, is well healed. I detect no sign of hernia currently. The PEG tube is in the left upper abdomen is vented to drainage at this time. Some bilious fluid is noted there. EXTREMITIES: Flexion contractures of both lower extremity and upper extremity. Personal review of the CT scan from yesterday shows a markedly distorted abdominal configuration related to scoliosis and other dysmorphic features. There was a fair amount of air in the transverse colon. The balloon and PEG tube into the stomach is well from this area. There is some stool in the cecum, but not impressive to my examination. AP view shows some dilation of the cecum with some air and stool mixed, but certainly not excessively dilated in my opinion. I see no evidence of small bowel obstruction, or decompressed small bowel loops. I see no swirl sign or anything to suggest a volvulus. As regards inguinal herniation as noted I see no sign of bowel within any hernia defect. ASSESSMENT: It is uncertain the source of his abdominal discomfort as was reported initially. He clearly has a right-sided pneumonia, which is irrefutable, and likely related to aspiration. He does not show signs of small bowel obstruction, but I believe it to be appropriate to vent his G-tube at the moment. There is a fair amount of air within the colon itself. Whether this represents a pseudo-obstruction of the colon is uncertain. The stool within the cecum itself does not appear to be associated with cecal volvulus or a true obstruction. His most pressing physiologic concern currently is that of the right-sided pneumonia, for which antibiotic therapy has been initiated. I have reviewed all this with Dr. Marley. If necessary, decompressive colonoscopy may be appropriate. We will obtain a progress study tomorrow morning regarding abdominal findings. MD CLAUDIA Ansari/SUDARSHAN /[id number] Electronically Signed By: GORDON DIETZ MD 09/30/17 1713 PATIENT NAME: ROLAND MARIN CONSULTATION DATE OF : 89 REPORT #: [id number] PHYSICIAN: GORDON DIETZ MD PCP: EMA COKER MD REPORT IS CONFIDENTIAL AND NOT TO BE RELEASED WITHOUT AUTHORIZATION [facility] [address] [place], [place] [address] Signed cc: Verena Marley MD Copies: VERENA MARLEY MD ~ Electronically Signed By: GORDON DIETZ MD 09/30/17 1713 PATIENT NAME: ROLAND MARIN CONSULTATION DATE OF : 89 REPORT #: [id number] PHYSICIAN: GORDON DIETZ MD PCP: EMA COKER MD REPORT IS CONFIDENTIAL AND NOT TO BE RELEASED WITHOUT AUTHORIZATION
--- NOTE | 2017-09-30 18:10 | NUR ---
PT TRANSFERED FROM CCU TODAY. HERE FOR SEPSIS R/T ASPIRATION PNEUMONIA. NPO, LIFT ASSIST. HX OF CP. TURN FREQUENTLY. BM TODAY. 3L O2 NC. G-TUBE FOR MEDICAITONS AND KANGEROO PUMP FEEDINGS. NEW PIV IN LEFT HAND, D5LR AT 75ML/HR. C-DIFF PERCAUTIONS. PT WILL MOAN WHEN IN PAIN, PRN TORDOL AND TYLENOL. FREQUENT SUCTIONING NEEDED. MOTHER AT BEDSIDE, INVOLVED IN CARE.
--- NOTE | 2017-09-30 18:44 | NUR ---
KANGAROO PUMP ARRIVED FROM KITCHEN. ISO SOURCE 1.5 BROUGHT FROM HOME. STARTED WITH KANGAROO PUMP AT 10CC/HR. MOTHER WORRIED ABOUT POSSIBLE NAUSEA. REASSURED THAT PHENEGRAN IS AVALIBLE IF NEEDED. MOTHER STATES TO WAIT AND SEE IF IT BECOMES A PROBLEM. PT REPOSITIONED. BED RAILS UP. MOM AT BEDSIDE.
--- NOTE | 2017-09-30 19:37 | NUR ---
DR MARLEY NOTIFIED THIS RN VIA PHONE R/T NEW ORDERS: IF PT STARTS HAVING EMESIS STOP TF. CHECK TUBE FEEDING RESIDUAL Q6H , DOCUMENT FINDINGS
--- NOTE | 2017-09-30 21:30 | NUR ---
PT ON CONTACT PRECAUTIONS, DX OF CDIFF+, SEVERE CP. PT MOANS TO LET NEEDS KNOW. HAS FREQUENT BOUTS OF ORAL SECRETIONS A=WITH MOIST COUGH, PT UNABLE TO CLEAR OWN SECRETIONS, SUCTIONED WITH YANKEUR BY BOTH MOTHER AND THIS RN, WITH GOOD RESULTS. HOB ELEVATED 45o, RESPOSITIONED WITH PILLOWS, ASPIRATION PRECAUTIONS IN PLACE. IVF INFUSING W/O PROBLEMS, NO ADVERSE REACTION NOTED TO IV ABX. LEFT ABD AREA WITH OLD SCRATCHED AREAS IN DIFFERENT STAGES OF HEALING, DRY, PT SELF INFLICTED. LEFT THUMB COVERED WITH COBAN PER MOMS REQUESTS TO PREVENT FURTHER SKIN INJURIES. PT HAS SEVERE CONTRACTURES OF HANDS AND LEGS. JT INTACT, PATENT, INFUSING AT 10CC/HR AT THIS TIME, PATENT, TAKES MEDS THROUGH JT. AREA INTACT, NO REDNESS AT INSERTION SITE. F/C IN PLACE, DRAINING YELLOW URINE, QS. MOTHER AT BEDSIDE, VERY COOPERATIVE. PT REQUIRES 2 PERSON ASSIST TO TURN IN BED, TURNED TO L SIDE AT THIS TIME.TOLERATED WELL. TO BE MEDICATD WITH ATIVAN 1MG IV PER ANXIETY. CONT PULSE OX IN PLACE. O2 3L NC, SATS 83% WHEN UNABLE TO CLEAR SECRETIONS -TO-99% ON O2 WHEN NOT COUGHING. DR MARLEY CONTACTED BY THIS RN R/T PER MOTHER, "ITS A JT, SHOULD NOT BE ASPIRATED, ORDER TO CHECK FOR TF RESIDUAL STOPPED, NEW ORDER TO USE DEEP THROAT SUCTIONING PRN IF OK WITH BOY [employer] SANTOS WHEN PT UNABLE TO CLEAR SECRETIONS OR UNABLE TO SUCTIONS WITH YANKEUR OBTAINED. EXPLAINED TO MOTHER. PT WAS ABLE TO CLEAR SECRETIONS W/O PROBLEMS. WILL BE MEDICATED WITH ATIVAN 1MG IV PER ANXIETY. PT COOPERATIVE
--- NOTE | 2017-09-30 22:53 | NUR ---
PT CALMER, HOB ELEVATED 45o, ASPIRATION SECREATIONS IN PLACE. ATIVAN EFFECTIVE, CONT PULSE OX 99%, PULSE 89. O2 3LNC, MOTHER AT BEDSIDE
--- NOTE | 2017-09-30 23:18 | NUR ---
TURNED TO R SIDE, PROCEDURE EXPLAINED, CALM, CONT PULSE OX 99% 3l nc, P 81. TF INFUSING WELL, IVF INFUSING W/O PROBLEMS, MOTHER AT BEDSIDE
--- NOTE | 2017-10-01 05:07 | NUR ---
pt on o2 3lnc, cont pulse ox in place sats 97%, pulse runs between 63-124, irregular. pulses strong and palpable. Lungs still with coarse sounds and fine crackles. Yankeur used to suction thick oral secreations, care done by both mother and [facility] staff. Pt unable to clear oral secretions at times. HOB elevasted 45o, aspiration precautions in place. hads JT, patent, infusing Iso source 1.5kcal via tube feeding at 10cc/hr, has tolerated well. Received med throught TF. site patent. insertion edilma cdi. abd soft, no bm this shift, attends in place. has f/c patent, draining dark yellow to light chas colored urine. Ilene care done. contracture of hands and legs present, no edema. IVsite left thumb/wrist area patent. no c/o adverser eaction to iv abx. Turned q2h. heel protectors in place. Pt received Ativan 1mg iv earlier in shift for anxiety, restlessness, effective, pt slept. was turned q2h, tolerated well. Pt non verbal, moand and lets needs know. Mother at bedside
--- NOTE | 2017-10-01 06:22 | NUR ---
PT TURNED TO L SIDE, HOB ELEVATED, ORAL SUCTIONING DONE, PT COOPERATIVE, [address], IVF PATENT, TF INFUSING AT 10CC/HR , NO S/SX ASPIRATIONS AT THIS TIME, PATENT. F/C DRAINING LIGHT MAKEDA URINE. ATTENS IN PLACE, NO BM THIS SHIFT, HEEL PROTECTORS INPLACE, MOTHER AT BEDSIDE, LAB HERE DRAWING BLOOD
--- NOTE | 2017-10-01 07:35 | NUR ---
PATIENT AWAKE IN BED. UPDATED BOARD. CALL LIGHT IN REACH. MOM IN ROOM ON COUCH(ASLEEP?)
--- NOTE | 2017-10-01 08:15 | NUR ---
PATIENT LYING IN BED, MOM USING YONKER PATIENT VOMITED A BIT. THIS FOREIGN LANGUAGES DEPARTMENT CHAIR SPENT 1 HOUR IN RM ASSIST PATIENTS MOM WITH AM CARE, USED SLING TO GET PATIENT TO COMMODE FOR BM. BACK TO BED FOR BED BATH AND DRESSING. PATIENT REPORTS "IT HURTS, MOVING HURTS" THIS FOREIGN LANGUAGES DEPARTMENT CHAIR ASSURED NO TUBES WERE BEING PULLED. USED SLING TO PLACE PATIENT IN PERSONAL WHEELCHAIR. EMPTIED GARBAGE,TIDIED ROOM, CHANGED LINENS. ROOM DID NOT HAVE A CALL LIGHT, THIS FOREIGN LANGUAGES DEPARTMENT CHAIR REPLACED IT WITH LIGHT FROM RM 108. PLACED ON BED. NO OTHER NEEDS. SHANIA STEPHENS IN RM.
--- NOTE | 2017-10-01 09:50 | NUR ---
REPONDED TO CALL LIGHT, PATIENT HAD VOMITED AND NEEDED CLEANED AND GOWN CHANGE. MOM ASSISTED. NO OTHER NEEDS
--- NOTE | 2017-10-01 10:30 | NUR ---
1015 4 MG ZOFRAN GIVEN FOR NAUSEA AND VOMITING AND HAS BEEN EFFECTIVE. NO N/V. PATIENT UP IN HIS WHEELCHAIR. MOTHER AT BEDSIDE ASSISTING AND GIVING GUIDENCE IN PATIENT'S CARE. PATIENT COUGHING AND HAS COARSE LUNG SOUNDS AND NEEDS SUCTIONED FREQUENTLY. GIVING AM MEDS CRUSHED AND MIXED WITH WATER TO PEG TUBE.
--- NOTE | 2017-10-01 12:30 | NUR ---
PATIENT RESTING AT THIS TIME, EYES CLOSED MOM AT BEDSIDE.
--- NOTE | 2017-10-01 13:00 | NUR ---
Patient lying in bed. mom in room. Warm blankets given to both. Garbage emptied, No other needs.
--- NOTE | 2017-10-01 14:17 | NUR ---
PATIENT HAS BEEN SLEEPING IN BED AND IS NOW BEING TURNED. TURNED Q2 HOURS WHILE IN BED. FEEDINGS NOW GIVIN PER SYRINGE.
--- NOTE | 2017-10-01 14:26 | NUR ---
PATIENT LYING ON RT SIDE, 2 PERSON ASSIST WITH VICK TO MOVE PATIENT ONYO LEFT SIDE. VITALS AND I/OS DONE. [place]UE EMPTIED. CALL LIGHT IN REACH
--- NOTE | 2017-10-01 16:35 | NUR ---
PATIENT TURNED AT 1400 TO HIS LEFT SIDE. SPR[place]UE WAS JUST DC'D PER 'S ORDERS. PATIENT'S MOTHER IS HEADED HOME FOR A BIT. PATIENT IS DOING FINE, SATS ARE 100% ON ROOM AIR. PATIENT HAS ATTENDS IN PLACE AND TOLERATED THE REMOVAL OF THE CATHETER WELL.
--- NOTE | 2017-10-01 18:40 | NUR ---
2 PERSON ASSIST WITH VICK TO REPOSTITION PATIENT TO LFT SIDE. CHANGED ATTENDS PATIENT HAD BM. MOM IN RM. CALL LIGHT IN REACH
--- NOTE | 2017-10-01 19:00 | NUR ---
PATIENT HAS HAD A BUSY DAY GETTING UP TO HIS WHEELCHAIR FOR THE MORNING. GETTING NAUSEATED AT 1015 AND VOMITTING A FEW TIMES,THIS WAS RELIEVED WITH 4 MG OF IV ZOFRAN. 22G IV REMAINS PATENT AND LR RUNNING AT 75MLS/HR. 4 LIQUID STOOLS TODAY. LOTS OF SECREATIONS AND ORAL SUCTIONING, WHICH THE PATIENT TOLERATES WELL. PATIENT SLEEPING IN THE AFTERNOON AFTER BEING PUT BACK TO BED. DARCIE ALSO DC'D PER ORDER IN THE AFTERNOON. MOTHER AT BEDSIDE MOST OF THE DAY EXCEPT FOR AN HOUR OR SO WHICH SHE WENT HOME TO GET SOME THINGS. PATIENT WILL BE USING HIS OWN [employer] FROM HOME THE HOSPITAL DOES NOT HAVE ACCESS TO THIS. PATIENT'S MOTHER IS NOW GIVING THE TUBE FEED BOLUSES AND WRITING THEM DOWN ON THE WHITE BOARD FOR NURSING TO DOCUMENT.
--- NOTE | 2017-10-01 19:10 | NUR ---
RECEIVED REPORT FROM SHANIA STEPHENS. PT MOM AT BEDSIDE, PARTICIPATED IN REPORT.
--- NOTE | 2017-10-01 19:47 | NUR ---
PT AWAKE, MOM PRESENT. STATED THAT PT IS NEEDING ZOFRAN FOR NAUSEA. MED WITH ZOFRAN IV.
--- NOTE | 2017-10-01 21:33 | NUR ---
PT MOM IN ROOM, SUCTIONING PT. PT HAD 2 VISITORS AT BEDSIDE APPROX 15 MIN AGO WHILE MOM WAS OUT OF ROOM. PT SMILING AND TALKING TO THEM. IV CONTINUES PER ORDER.
[2017-10-01] MEDS ORDERED: AMOX TR-K CLV1 EAC1 PT (21:36)
[2017-10-01] MEDS ORDERED: VANCOMYCIN HCL125 MG PO (21:38)
--- NOTE | 2017-10-01 22:45 | NUR ---
TURNED PT, INCONT CARE PROVIDED, SMEAR BM SOFT CLEANED UP. MEDICATIONS PER GT GIVEN, WITH WATER. PT WITH THICK SECRETIONS, SUCTIONING FREQUENTLY PRIOR TO MEDICATION GIVEN. FLUSHED TUBE POST MEDS. PT ON HIS RIGHT SIDE, O2 READING 95 ON 3L NC. NO OTHER NEEDS AT THIS TIME
--- NOTE | 2017-10-02 00:47 | NUR ---
PT WITH EYES CLOSED, RESP EVEN AND UNLABORED. PULSEOX READING O2 ON 3L AT 98%.
--- NOTE | 2017-10-02 05:25 | NUR ---
PT WAS COUGHING EARLIER WHICH TURNED INTO "VOMITING" UP PINK TINGED THICK LIQUID, WELL PHLEGM. TYLENOL WAS THE ONLY LIQ HE RECEIVED THIS SHIFT, IT WAS PINK. PT HAD COMPLETE BED CHANGE 2X DUE TO VOMITING/COUGHING AFTER CLEAN BEDDING PLACED. MOM ASSISTED IN THE TURNING/CHANGING. MED WITH ZOFRAN AT THIS TIME WELL. INCONT URINE WELL. REPOSITIONED ON HIS RIGHT SIDE.
--- NOTE | 2017-10-02 06:35 | NUR ---
PT TURNED FREQUENTLY, INCONT CARE EACH TURN. RECEIVED ZOFRAN 2X THIS SHIFT, WITH ACTUAL VOMITING WHILE COUGHING. 3L O2, WITH SATS IN THE 90'S. SUCTIONED FREQUENTLY THROUGHTOUT THE NIGHT, D5LR CONTINUES AT 75, HEEL PROTECTORS, PILLOW FOR POSITIONING. NO HOLLERING OUT, PLEASANT, SMILING WHEN TALKED TO. MOM REMAINED AT BEDSIDE, ASSISTED WITH CARES.
--- NOTE | 2017-10-02 07:37 | NUR ---
PATIENT HAS BEEN WRETCHING AND IS NOT DUE FOR ANY ZOFRAN. 12.5MG PROMETHAZINE GIVEN IV OVER 10 MINUTES DILUTED IN 30 MLS NS. WRETCHING HAS STOPPED AT THIS TIME. PATIENT RESTING QUIETLY AT THIS TIME.
--- NOTE | 2017-10-02 07:45 | NUR ---
PATIENT RESTING IN BED WITH EYES CLOSED. PATIENTS FAMILY MEMBER IN THE ROOM. ORAL CARE SET UP IN BATHROOM. CALL LIGHT IN REACH. NO OTHER NEEDS AT THIS TIME.
--- NOTE | 2017-10-02 09:41 | NUR ---
PATIENT RESTING QUIETLY AT THIS TIME. BOX INSPECTOR'S GOING IN TO DO VITALS. MOM AT BEDSIDE.
--- NOTE | 2017-10-02 10:06 | NUR ---
PATIENT TURNED TO HIS LEFT SIDE. VENTING PEG TUBE. 4 MG IV ZOFRAN GIVEN TO PREVENT NAUSEA.
--- NOTE | 2017-10-02 10:23 | NUR ---
PATIENT RESTING IN BED. PATIENTS MOTHER IN ROOM. THIS FILLING STATION EQUIPMENT MECHANIC AND FILLING STATION EQUIPMENT MECHANIC JONI REPOSITIONED PATIENT TO LEFT SIDE AND CHANGED PATIENTS BREIF. PATIENT HAD INCONTINENCE EPISODE. THIS FILLING STATION EQUIPMENT MECHANIC PERFORMED PERICARE. VITALS TAKEN. RN IN ROOM. CALL LIGHT IN REACH. NO OTHER NEEDS AT THIS TIME
--- NOTE | 2017-10-02 10:42 | NUR ---
PATIENT REMAINS NAUSEA FREE AFTER MEDICATIONS. LOW GRADE FEVER OF 99.5 TEMPORAL. 325MG CRUSHED TYLENOL GIVEN FOR COMFORT, PER PEG TUBE. DR. MARLEY IN EVALUATING PATIENT AT THIS TIME. MOTHER IS WANTING TO TAKE PATIENT HOME HE IS DOING BETTER EVEN THOUGH HE IS NOT TOTALLY BETTER YET, THEY HAVE THEIR OWN STAFF THAT CAN BE THERE WITH HIM ONE ON ONE AND NOT HAVE TO DEAL WITH ISOLATION PROTOCOLS TO GET TO THE PATIENT. THEY HAVE EVERYTHING THE HOSPITAL HAS AT HOME EXCEPT CONTINUOUS PULSE OX AND IV FLUIDS. DR. MARLEY IS DISCHARGING THE PATIENT TO HOME.
[2017-10-02] MEDS ORDERED: VANCOMYCIN HCL125 MG PO (11:29)
--- NOTE | 2017-10-02 11:55 | NUR ---
PATIENT DISCHARGE INSTRUCTIONS AND INFORMATION HAVE BEEN GIVEN TO PATIENT'S DEVENAN HIS MOTHER, AND SHE VERBALIZED UNDERSTANDING. 1 WEEK OF VANCOMYCIN FOR PEG TUBE BEING SENT HOME WITH PATIENT FROM THE HOSPITAL PHARM[facility]. RX'S FOR FURTHER VANCOMYCIN AND AUGMENTIN SENT TO THE PHARMACY. PATIENT HAS F/U WITH DR. COKER ON 10/05/17.
== END 2017-10-02 12:03 | disposition home or self-care (01) | DRG 871 ==
LOC: ED 12:51 → CCU 15:20 → MS 15:31 → CCU 15:32 → MS 09-30 12:30
PROVIDERS: ADMIT Internal Medicine
DX: A41.50 Gram-negative sepsis, unspecified (principal); J69.0 Pneumonitis due to inhalation of food and vomit; J15.6 Pneumonia due to other Gram-negative bacteria; G93.41 Metabolic encephalopathy; G80.0 Spastic quadriplegic cerebral palsy; A04.72 Enterocolitis due to Clostridium difficile, not specified as recurrent; R65.20 Severe sepsis without septic shock; N31.9 Neuromuscular dysfunction of bladder, unspecified; R13.12 Dysphagia, oropharyngeal phase; K21.9 Gastro-esophageal reflux disease without esophagitis; G40.909 Epilepsy, unspecified, not intractable, without status epilepticus
CPT/HCPCS: 36415; 71045; 74018; 80053; 82150; 83605; 83690; 83735; 85025; 87040; 87045; 87046; 87493; 87502; 93005; 93010; 96374; 96375; 99285; J0456; J1170; J1650; J1885; J1956; J2060; J2405; J2543; J2550; J3475; J7050; J7120

== ENCOUNTER 2018-09-04 14:24 | Inpatient (IN) | payer OTHER ==
[~2018-09-04] VITALS: Ht 170.2 cm; Wt 47.7 kg
[~2018-09-04 14:24] MED LIST changes: +AMOX TR-K CLV1 EAC1 PT; +CARAFATE1 GM/10 ML PT; -CETIRIZINE1 MG/1 ML PO; +CETIRIZINE1 MG/1 ML PT; +CHLORASEPTIC MA30 ML MM; +GERITOL TONIC118 ML GT; +LUBRIFRESH PM3.5 GM OPTH; +MAPAP500 MG/15 PT; +VANCOMYCIN HCL125 MG PO
[2018-09-04] MEDS ORDERED: CITALOPRAM20 MG/10 M GT (14:55)
[2018-09-04] MEDS ORDERED: [UNRECOGNIZED DRUG - REMARK] GT (14:59)
--- NOTE | 2018-09-04 21:39 | NUR ---
ADMIT PT TO CCU AT 1950 PER STRETCHER. WAS QUIET AT FIRST ON ADMISSION TO CCU BUT HAS BECOME MORE RESTLESS, MAKING FACES AT TIMES AND CRYING OUT. CAN ON RARE OCC UNDERSTAND A FEW WORDS. MOM WITH PT AND SHE DID DECOMPRESS ABD BY VENTING G-TUBE. THIS DID NOT CALM PT. DR ORELLANA IN DEPT 2100 AND DISCUSSED THIS WITH PT'S MOM, PT WAS GIVEN 1MG ATIVAN IV. HAS BEEN INC URINE X2 AND ATTENDS CHANGED. PT DID SAY YES WHEN ASKED IF NEED TO HAVE BM BUT SO FAR NO RESULTS. WILL HOLD DULC SUPP FOR TONIGHT FOR NOW AND MAY GIVE FIRST THING AM AND USE SLING TO GET PT TO COMMODE. AT TIMES PT IS DIAPHORETIC BUT IS AFREBRILE. MOM TOOK LEG AFO'S OFF FOR NIGHT. CARAFATE GIVEN PER G TUBE. WILL WAIT 30 MIN TO GIVE REST OF HS MEDS.
--- NOTE | 2018-09-04 22:30 | NUR ---
CONT TO BE RESTLESS AND CRYING OUT. MEDS GIVEN PER G-TUBE BY MOTHER AFTER BEING CHECKED BY RN.
--- NOTE | 2018-09-04 23:18 | NUR ---
FELL ASLEEP ABOUT 2250, HR 90'S. IS DAPHORETIC. BP 86/27 L LEG AT 2300, RECHECKED LEG AND R ARM BP IS 85/29. DR ORELLANA NOTIFIED. WILL GIVE 1 L LR.
--- NOTE | 2018-09-04 23:51 | NUR ---
IS SLEEPING SOUNDLY. ATTENDS CHANGED AND PT DID NOT AWAKEN. MOM STATED EARLIER THAT PT HAD NOT SLEPT FOR 2 DAYS AND WHEN HE DOES THIS AND FINALLY FALLS ASLEEP WILL SLEEP SOUNDLY FOR SOME TIME. WAS INC OF LARGE AMT DILUTE URINE. MOM INFORMED OF PT'S VS. SHE STATES SHE DOESN'T KNOW WHAT HIS BP IS NORMALLY.
--- NOTE | 2018-09-05 02:10 | NUR ---
REPOSITIONED. ATTENDS DRY. HAS BEEN RESTING WELL.
--- NOTE | 2018-09-05 05:03 | NUR ---
IN TO ASSESS PT AT 0405, ATTENDS DRY, BLADDER SCANNED FOR 153ML. PT BECAME MORE AWAKE BECAME MORE AGITATED AND UNCOMFORTABLE. MOM DID VENT ABD THROUGH G TUBE, NO CHANGE IN PT COMFORT. GIVEN 650MG TYLENOL PER G TUBE AT 0440. LINEN CHANGED BECAME DIAPHORETIC WITH ACTIVITY. ALSO HAD SPIT UP SMALL AMT WATER. HR INC TO 120'S TO 140'S WITH AGITATION. SUCTIONED ORALLY FREQ HAS INCREASED ORAL SECRETIONS WHEN RESTLESS.
--- NOTE | 2018-09-05 05:25 | NUR ---
CONT TO BE VERY AGITATED AND VOCALIZING. GIVEN 1MG ATIVAN IV.
--- NOTE | 2018-09-05 05:42 | NUR ---
REMIANS AGITATED, ATIVAN 1MG REPEATED.
--- NOTE | 2018-09-05 06:22 | NUR ---
INC OF URINE ATTENDS CHANGED. HR 150'S WITH BEING AGITATED. MOM STATES PT FREQ FIGHTS GOING TO SLEEP.
--- NOTE | 2018-09-05 06:41 | NUR ---
PT'S MOM IS REQUESTING SOMETHING MORE TO HELP PT REST. DR ORELLANA CALLED. WILL GIVE AM BACLOFEN AND TINZANIDINE NOW.
--- NOTE | 2018-09-05 07:30 | NUR ---
INTRODUCED MYSELF AND SMASH PIECER RAMAN TO THE PT AND HIS MOTHER. PT IN BED, NONVERBAL, MOVING AROUND IN THE BED BUT PER PT'S MOTHER, HE'S BETTER COMPARED TO A BIT AGO. PT'S MOTHER DENIES ANY NEEDS TO BE MET AT THIS TIME. CALL LIGHT WITHIN REACH. ALL SAFETY, FALL, ASPIRATION AND SEIZURE PRECAUTIONS IN PLACE. WILL CONTINUE TO MONITOR.
--- NOTE | 2018-09-05 08:50 | NUR ---
PT'S MOM REQUESTS CARAFATE TO BE GIVEN AT THIS TIME, AND TO HOLD OFF ON GIVING PT'S PRN ATIVAN SO THAT WE CAN ADMINISTER THE NEWLY ORDERED SEROQUEL. CARAFATE GIVEN THROUGH PT'S GBUTTON WITHOUT ANY ISSUES AND FLUSHED WITH 5 ML OF WATER. PT'S MOTHER REMAINS AT BEDSIDE; GIVING PT SOME TIME WITH CARAFATE PRIOR TO GIVNING MORE MEDICATIONS. CALL LIGHT WITHIN REACH. WILL CONTINUE TO MONITOR.
--- NOTE | 2018-09-05 10:15 | NUR ---
FULL BED BATH GIVEN AT THIS TIME. LINENS CHANGED. ORAL CARES. IAM CARE. LARGE INCONTINENT EPISODE- BRIEF CHANGED AND NOW CDI.
--- NOTE | 2018-09-05 11:05 | NUR ---
DR. ORELLANA UPDATED AT THIS TIME OF PT'S HEART RATE MAINTAINING IN 140'S WELL PT'S INCREASED RESTLESSNESS AND AGITATION. PER DR. ORELLANA, ADMINISTER 2 MG PRN ATIVAN AND WILL REASSESS ON WHETHER OR NOT TO ADD DIFFERENT METHODS OF ANXIETY CONTROL.
--- NOTE | 2018-09-05 11:50 | NUR ---
DR. ORELLANA AT THE BEDSIDE, SEEING PT'S RESTLESSNESS, ANXIETY AND CRYING OUT. PT SAYS NO WHEN ASKED IF HE NEEDS TO GO TO THE BATHROOM, AND SAYS YES WHEN ASKED IF HIS NECK HURTS. CAREGIVER AT BEDSIDE.
--- NOTE | 2018-09-05 12:22 | NUR ---
MEDS GIVEN AT THIS TIME- PT STILL RESTLESS WITH AGITATION, CRYING, MOANING, SHAKING. WILL MONITOR EFFECTIVENESS.
--- NOTE | 2018-09-05 13:05 | NUR ---
PT SLEEPING SOUNDLY IN BED- THE MOST COMFORTABLE AND CALM HE'S BEEN ALL MORNING. EYES SHUT, REGULAR BREATHING, VITALS STABLE. CALL LIGHT WITHIN REACH. SAFETY AND FALL PRECAUTIONS REMAIN IN PLACE. WILL CONTINUE TO MONITOR.
--- NOTE | 2018-09-05 13:34 | NUR ---
BRUSH FABRICATION SUPERVISOR AT BEDSIDE SPEAKING WITH PT'S MOTHER CLINTON WHO HAS RETURNED.
--- NOTE | 2018-09-05 13:43 | NUR ---
THIS RN SPOKE TO GRIP ASSEMBLER WHO JUST SPOKE WITH CL[place]- DIET CHANGED TO PUREED FOR ADMINISTRATION THROUGH GTUBE BY NURSING STAFF OR PT'S MOTHER. PT STILL NPO BY MOUTH.
--- NOTE | 2018-09-05 14:18 | NUR ---
PT REMAINS ASLEEP IN BED WITHOUT ANY SIGNS OF PAIN OR DISCOMFORT. HIS VS ARE STABLE. PT'S MOTHER REMAINS AT BEDSIDE. CALL LIGHT IN REACH AND PRECAUTIONS IN PLACE. WILL CONTINUE TO MONITOR.
[2018-09-05] MEDS ORDERED: MAGNESIUM OXID400 M1 PT (14:23)
--- NOTE | 2018-09-05 14:23 | NUR ---
PT HAS HAD A VERY BUSY DAY, LOTS OF ACTIVITY. SHANIA TEMPLETON REQUESTED I LET THEM HAVE SOME REST. WILL FOLLOW NEEDED
--- NOTE | 2018-09-05 15:09 | NUR ---
PATIENT HAS HISTORY OF CEREBRAL PALSY. HE IS UNABLE TO EAT BY MOUTH. OF 2017, MOM HAS BEEN BLENDING FOOD AND FEEDING VIA HIS G-TUBE. SHE BUYS MEALS FROM A HOME DELIVERY SERVICE CALLED HOME SIGN BUILDER SUPERVISOR. SHE OR THE CAREGIVER WILL COOK THE FOOD AND BLEND IT UP. HE GETS ABOUT 750 ML VOLUME PER MEAL. PATIENT GETS 10-12 OZ OF WATER BEFORE EACH MEAL. MOM IS NOT GIVING ANY VITAMINS AT THIS TIME BECAUSE PATIENT GETS A VARIETY OF FOOD AT HOME OVER 3 MEALS, SOMETIMES A FRUIT SMOOTHIE FOR A SNACK. BREAKFAST MIGHT BE OATMEAL, FRUIT, AND EGG OR CINTRON OR SAUSAGE BLENDED UP WITH REGULAR MILK. SOMETIMES SHE BLENDS UP A BREAKFAST CROISSANT SANDWICH WITH MILK. LUNCH AND DINNER ARE BLENDED WITH WATER OR V8 JUICE. PATIENT IS TOLERATING WELL AT HOME. MOM WILL PROVIDE THE SPECIAL BAGS, DIETARY WILL PROVIDE BLENDED MEALS. PATIENT LIKES PRETTY MUCH EVERYTHING. WILL CONTINUE TO BE AVAILABLE IF NEEDED.
--- NOTE | 2018-09-05 15:20 | NUR ---
PT REMAINS ASLEEP AT THIS TIME. HE CONTINUES TO APPEAR VERY COMFORTABLE AND AT EASE. HIS VS ARE STABLE. HIS MOTHER ALSO AT THE BEDSIDE RESTING. PT'S BLENDED LUNCH HAS BEEN BROUGHT AND PLACED IN THE REFRIDGERATOR SO IT IS AVAILABLE IF HE WAKES UP. CALL LIGHT WITHIN REACH. WILL CONTINUE TO MONITOR.
--- NOTE | 2018-09-05 16:00 | NUR ---
PT REMAINS ASLEEP AT THIS TIME- FOCUSED ASSESSMENT COMPLETED. VS AND CONDITION REMAIN STABLE. PT'S MOTHER AT HIS BEDSIDE RESTING. WILL CONTINUE TO LET PT REST DUE TO HIS LACK OF SLEEP FOR MANY DAYS RECENTLY. CALL LIGHT WITHIN REACH. WILL CONTINUE TO MONITOR.
--- NOTE | 2018-09-05 17:15 | NUR ---
PT STILL RESTING IN BED WITH EYES CLOSED- PT'S MOTHER HAS WOKEN UP AND IS GIVING PT HIS PUREED DINNER THROUGH HIS G TUBE. PT'S MOTHER DENIES ANY NEEDS OR ASSISTANCE AT THIS TIME. CALL LIGHT WITHIN REACH. WILL CONTINUE TO MONITOR.
--- NOTE | 2018-09-05 17:35 | EKG ---
[facility] [address] [place] [address] Signed Sinus tachycardia with short MI with occasional premature ventricular complexes Nonspecific ST and T wave abnormality Abnormal ECG When compared with ECG of 28-SEP-2017 15:18, premature ventricular complexes are now present ST now depressed in Anterior leads Nonspecific T wave abnormality no longer evident in Inferior leads Nonspecific T wave abnormality now evident in Lateral leads Confirmed by MARGARET ORELLANA DO ([id number]) on 09/05/2018 5:35:21 PM Electronically Signed By: MARGARET ORELLANA DO 09/05/18 1735 PATIENT NAME: ROLAND MARIN Electrocardiogram DATE OF : [birth year] PHYSICIAN: MARGARET ORELLANA DO REPORT #: [id number] REPORT IS CONFIDENTIAL AND NOT TO BE RELEASED WITHOUT AUTHORIZATION
--- NOTE | 2018-09-05 18:30 | NUR ---
PER PT'S MOM, PT TOLERATED WATER BOLUS AND PUREED FOOD WELL THROUGH THE GTUBE. SEE CHARTED INTAKE. PT CONTINUES TO REST WITH EYES CLOSED PEACEFULLY WITH NO SIGNS OF DISCOMFORT OR PAIN. CLINTON REMAINS AT THE BEDSIDE. VITALS REMAIN STABLE. DR. ORELLANA HAS ROUNDED AND IS AWARE OF THE GOOD REST PT HAS GOTTEN AND THE STABLE VS. CALL LIGHT WITHIN REACH. WILL CONTINUE TO MONITOR.
--- NOTE | 2018-09-05 20:00 | NUR ---
RECEIVED REPORT AT 1900, PT WAS GRUNTING AND RESTLESS DUE TO PAIN IT APPEARED. MOTHER IS AT BEDSIDE. PT HAD A VERY SMALL BM AND VOID X1. HR AT 100-110.
--- NOTE | 2018-09-05 21:00 | NUR ---
0.5MG OF IV DILAUDED WAS GIVEN FOR PAIN. EVENING MEDS GIVEN WELL. A FLEET ENEMA WAS ALSO GIVEN. PT AT THIS TIME IS RESTING COMFORTABLY. ALL LOBES ARE CLEAR, ABD SOUNDS ARE PRESENT. PERIPHERAL PULSES +2, IV SITE IS INTACT. PT WAS REPOSITIONED.
--- NOTE | 2018-09-05 22:00 | NUR ---
PT AT THIS TIME IS SLEEPING. MOTHER AT BEDSIDE. NO BM NOTED SO FAR. BP'S SOFT IN THE LOW 90'S FOR THE MOST PART. WILL CONTINUE TO MONITOR.
--- NOTE | 2018-09-06 | NUR ---
ALL LOBES ARE CLEAR, ABD SOUNDS PRESENT, NO DISTENTION NOTED, ABD SOFT TO TOUCH. V/S ARE WDL,PERIPHERAL PULSES +2, PT IS SLEEPING. NO VOID /BM AT THIS TIME. PT WAS RE-POSITIONED.
--- NOTE | 2018-09-06 02:00 | NUR ---
PT IS STILL SLEEPING AT THIS TIME. V/S ARE WDL, NO VOID/BM. MOTHER HAS LEFT BEDSIDE.
--- NOTE | 2018-09-06 03:00 | NUR ---
STILL NO VOID/BM. BLADDER SCANNER SHOWED 188ML PRESENT. WILL CONTINUE TO MONIOR. PT WAS RE-POSITIONED.
--- NOTE | 2018-09-06 05:25 | NUR ---
PT HAD A BM SMALL. MOSTLY MUCUS. NO VOID HOWEVER. BLADDER SCAN WAS DONE AGAIN. 286ML NOTED ON SCANNER. MOTHER IS BACK AT BEDSIDE.
--- NOTE | 2018-09-06 06:00 | NUR ---
PT JUST HAD EMESIS X1, EMESIS LOOKED UNDIGESTED. LAST G-TUBE INTAKE WAS AT AROUND 2100 LAST NIGHT. PT PERHAPS WOULD BENEFIT FROM A KUB X-RAY. PT STILL HAS NOT VOIDED. LAST BLADDER SCAN SHOWED 286ML. MOTHER STATED THAT AT TIMES SHE HAS TO STRAIGHT CATH HIM. 4MG IV ZOFRAN WAS GIVEN.
--- NOTE | 2018-09-06 06:40 | NUR ---
AT START OF SHIFT PT WAS RESTLESS AND AGITATED WITH GRUNTING. THIS SEEMED TO HAVE BEEN DUE TO PAIN. PRN DILAUDED AND SCHEDULED MEDS WERE GIVEN. PT SLEPT MOST OF THE SHIFT. PT WAS FREQUENTLY RE-POSITIONED. SBP'S FOR THE MOST PART WERE IN THE LOWER TO MID 90'S. OTHERWISE V/S WERE WDL. LOBES HAVE REMAINED CLEAR, ABD SOUNDS ARE PRESENT. PT HAS HAD BM X2 SINCE FLEET ENEMA. IT SHOULD BE MENTIONED THAT THE STOOL CONSISTS MOSTLY OF MUCUS. PT ALSO HAS NOT VOIDED FOR THE PAST 8HRS. PT IS PRODUCING URINE AT AN ADEQUATE RATE INDICATED BY THE BLADDER SCANNER. MOTHER STATED THAT AT TIMES DUE TO HIS NEUROGENIC BLADDER SHE HAS TO STRAIGHT CATH HIM. PT ALSO HAD EMESIS X1 AT 0600. EMESIS LOOKS UNDIGESTED. LAST G-TUBE INTAKE WAS YESTERDAY AT ABOUT 2100. 4MG IV ZOFRAN WAS GIVEN. WILL CONTINUE TO MONITOR. ABD AT THIS TIME SEEMS A LITTLE DISTENDED AND IS SLIGHTLY FIRMER TO TOUCH AT THIS TIME. ABD SOUNDS ARE PRESENT.
--- NOTE | 2018-09-06 08:21 | NUR ---
PT HAS HAD 2 BM SINCE 7AM TODAY, LIQUID BROWN IN COLOR. PT IS SMILIES AND TALKING WITH STAFF THIS AM. HE APPEARS NOT TO BE IN PAIN OR UPSET THIS AM. HE HAS ALSO VOIDED A LARGE AMOUNT. PT WAS BLADDER SCANED WITH 147 LEFT AFTER HIS VOID. DR ORELLANA IS AWARE.
--- NOTE | 2018-09-06 09:22 | NUR ---
AT TIMES PT WILL YELL OUTLOUD "OUIE" HE WAS MEDICATED WITH 0.05MG DILAUDID IVP AND 100MG TYLENOL VIA G-TUBE WITH HIS OTHER MEDICATIONS. PT WAS FEED VIA G-TUBE BKF. HE HAS HAD TWO BM'S SO FAR THIS SHIFT. AND KUB WAS COMPLETED, BUT NO RESULTS OF THIS TIME.
[2018-09-06] MEDS ORDERED: BACLOFEN20 MG PT (09:44)
--- NOTE | 2018-09-06 10:14 | NUR ---
pt contioues to yell out at times in pain. medicated with 10mt via tube at this time.
--- NOTE | 2018-09-06 11:22 | NUR ---
PT AWAKES AND YELLS OUT AT TIMES, AND THEN WHEN STAFF ENTER THE ROOM HE SETTLES DOWN AND GOES TO SLEEP. IT APPEARS THAT HE IS COMFORTABLE AT THIS TIME. CAREGIVER AT THE BEDSIDE. DOES HELP STAFF UNDERSTAND WHAT PT IS SAYING.
[2018-09-06] MEDS ORDERED: ACETAMINOP500 MG/15 PT (12:02)
[2018-09-06] MEDS ORDERED: CHLORASEPTIC177 M1 MM (12:05)
[2018-09-06] MEDS ORDERED: DESITIN57 GM TOP (12:08)
[2018-09-06] MEDS ORDERED: XANAX0.5 MG PO (12:09)
--- NOTE | 2018-09-06 12:09 | NUR ---
MED REC COMPLETE
--- NOTE | 2018-09-06 12:35 | NUR ---
PT ATTENDS CHANGED, REPOSITIONED AND HE TENDS TO YELL OUT.
--- NOTE | 2018-09-06 13:37 | NUR ---
PT RESTING COMFORTABLE AT THIS TIME, PT OLDER BROTHER PRESENT AT THIS TIME. HEART RATE AND RESP RATE HAS DECREASED TO THE 90'S AND LOW TEEN'S. SPO2 99% . HE IS NO LONGER YELLING OUT. AT TIMES HE DOES TALK WITH HIS BROTHER.
--- NOTE | 2018-09-06 14:08 | NUR ---
PT MOTHER IS BACK AT THIS TIME, FEEDING VIA G-TUBE COMPLETED AT THIS TIME.
--- NOTE | 2018-09-06 14:47 | NUR ---
PT REPORT RECEIEVED FROM GAUTAM JAUREGUI. THIS RN IS TAKING OVER CARE OF PT AT THIS TIME. PT IS RESTING IN BED WITH HIS MOTHER AT THE BEDSIDE. MEDICATIONS GIVEN PER TUBE. PT TOLERATED WELL. WILL CONTINUE TO CLOSELY MONITOR.
--- NOTE | 2018-09-06 15:36 | EKG ---
[facility] [address] [place] [address] Signed Sinus tachycardia Nonspecific T wave abnormality Abnormal ECG When compared with ECG of 04-SEP-2018 15:22, premature ventricular complexes are no longer present Vent. rate has decreased BY 70 BPM QRS duration has increased ST no longer depressed in Inferior leads ST no longer depressed in Anterolateral leads Nonspecific T wave abnormality now evident in Inferior leads Confirmed by MARGARET ORELLANA DO ([id number]) on 09/06/2018 3:36:41 PM Electronically Signed By: MARGARET ORELLANA DO 09/06/18 1536 PATIENT NAME: ROLAND MARIN Electrocardiogram DATE OF : [birth year] PHYSICIAN: MARGARET ORELLANA DO REPORT #: [id number] REPORT IS CONFIDENTIAL AND NOT TO BE RELEASED WITHOUT AUTHORIZATION
--- NOTE | 2018-09-06 16:30 | NUR ---
PT APPEARS PAINFUL AND CRYING OUT. GAVE PRN PAIN MEDICATION FOR COMFORT. CHANGED PTS ATTENDS AND SENT STOOL SMAPLE. REPOSITIONED PT WITH PILLOW SUPPORT ON HIS RIGHT SIDE. WILL CONTINUE TO CLOSELY MONITOR.
--- NOTE | 2018-09-06 17:04 | NUR ---
PT ATTENDS CHANGED AND PT REPOSITIONED. PT REPOSITIONED TO HIS LEFT SIDE WITH PILLOW SUPPORT. PT CRYING OUT WHILE AWAKE. GAVE PRN PAIN MEDICATION. WILL MONITOR FOR EFFECTIVENESS. PT WILL TRANSFER TO THE MEDICAL FLOOR THIS AFTERNOON/EVENING. [facility]. WILL CONTINUE TO CLOSELY MONITOR.
--- NOTE | 2018-09-06 18:30 | NUR ---
GAVE SUPPOSITORY AFTER TALKING WITH EDWIGE IN PHARMACY REGAURDING ALLERGIES. PER PHARMACY MEDICATION INTERACTIONS REVIEWED AND PT ALLERGY IS NOTED TO ONLY BE FROM IV MEDICATION ADMINISTRATION. PT TOLERATED WELL. WILL CONTINUE TO CLOSELY MONITOR.
--- NOTE | 2018-09-06 18:45 | NUR ---
PT ATTENDS CHANGED, BEDDING CHANGED, MOVED PT TO ROOM 115 WITH ALL BELONGINGS SENT WITH PATIENT. PTS MOTHER AT THE BEDSIDE. SUCTION SET UP. WILL GIVE REPORT TO PACKAGE DESIGNER MEDSURAntony RN. WILL CONTINUE TO CLOSELY MONITOR.
--- NOTE | 2018-09-06 19:00 | NUR ---
REPORT RECEIVED, PT RESTING IN BED, CPOX ON O2 SAT 98%, HR 99, FAMILY AT BEDSIDE, IV FLUIDS INFUSING PER EMAR, SITE VISUALIZED NO SIGNS OF INFILTRATION. CONTRACTURES NOTED IN WRISTS, NO SIGNS OF RESTLESNESS OR AGITATION AT THIS TIME, CALL LIGHT WITHIN REACH. FAMILY REMAINS AT BEDSIDE.
--- NOTE | 2018-09-06 19:17 | NUR ---
REPORT GIVEN TO MATHEMATICS ACADEMIC CHAIR SHANIA CAMARGO. PTS MOM AND FRIENDS ARE AT THE BEDSIDE. REVIEWED G-TUBE, IV SITE, AND ASPIRATION PRECAUTIONS. PT ON 2L NC AND SPO2 MONITORING IN PLACE. SUCTION SET UP AT THE BEDSIDE. FAMILY IS VERY INVOLVED IN CARE.
--- NOTE | 2018-09-06 19:45 | NUR ---
CALL LIGHT ANSWERED, PT'S MOTHER ON THE PHONE STATING SHE BELIEVES PT NEEDS SOME ATIVAN. PT NOTED TO BE MOANING IN BED, APPEARS RESTLESS, PRN ATIVAN GIVEN PER EMAR. NO FURTHER REQUESTS AT THIS TIME, PT ON 2LNC, O2 SAT 99%, HR 90'S, CALL LIGHT WITHIN REACH. IV FLUIDS INFUSING PER EMAR WNL.
--- NOTE | 2018-09-06 20:30 | NUR ---
PT RESTING IN BED, UNABLE TO ASSESS ORIENTATION, PT HAS CALMED SINCE RECENT ATIVAN ADMINISTRATION, EVENING MEDS ADMINISTERED WITH ASSISTANCE FROM PT'S MOTHER, PT QUICK TO RETURN BACK TO REST, SLEEPING, ON 2LNC, O2 SAT 99%, HR 80'S, PT'S LEFT ARM REMAINS IN HEEL PROTECTOR DUE TO CONTRACTURES AND TO PROTECT IV. PT HAS BEEN INCONTINENT OF 2 VOIDS PER PT'S MOTHER. NO REQUESTS AT THIS TIME, CALL LIGHT WITHIN REACH. FALL PRECAUTIONS IN PLACE.
--- NOTE | 2018-09-06 21:15 | NUR ---
PT REPOSITIONED IN BED FOR COMFORT, PT RESTING IN BED QUIETLY, O2 SAT 99% ON 2LNC, HR 80'S NO SIGNS OF RESTLESNESS OR AGITATION, CALL LIGHT WITHIN REACH. FAMILY REMAINS IN ROOM. FALL PRECAUTIONS IN PLACE.
--- NOTE | 2018-09-06 23:23 | NUR ---
PT RESTING IN BED, EYES CLOSED, BREATHS EVEN, UNLABORED, ON 2LNC, O2 SAT 99%, HR 80'S, NO REQUESTS AT THIS TIME, NO SIGNS OF RESTLESNESS OR AGITATION. CALL LIGHT WITHIN REACH. FALL PRECAUTIONS IN PLACE.
--- NOTE | 2018-09-07 00:37 | NUR ---
PT RESTING IN BED, EYES CLOSED, BREATHS EVEN, ON 2LNC, O2 SAT 99% NO SIGNS OF DISCOMFORT OR AGITATION, PT'S FAMILY RESTING AT BEDSIDE WELL. NO REQUESTS AT THIS TIME, CALL LIGHT WITHIN REACH.
--- NOTE | 2018-09-07 02:30 | NUR ---
PT RESTING IN BED, EYES CLOSED, BREATHS EVEN, UNLABORED, NO REQUESTS AT THIS TIME, CALL LIGHT WITHIN REACH. IV FLUIDS INFUSING PER EMAR WNL, FAMILY REMAINS AT BEDSIDE.
--- NOTE | 2018-09-07 04:48 | NUR ---
PT CAME FROM CCU THIS SHIFT, APPROPRIATE, PT'S SPEECH GARBLED, OCCASIONAL ONE WORD RESPONSES ABLE TO BE MADE OUT BUT PT'S FAMILY ABLE TO COMMUNICATE BEST, PT GIVEN PRN ATIVAN X1 THIS SHIFT FOR RESTLESNESS/ AGITATION, PT SLEPT MOST OF THE SHIFT AFTERWARDS, ON 2LNC WHILE SLEEPING, CPOX ON, O2 SAT 99%, HR 80'S, PT BEDBOUND, FREQUENT TURNING, IV FLUIDS INFUSING PER EMAR WNL, PT INCONTINENT OF URINE AND STOOL, NO BM THIS SHIFT, MULTIPLE VOIDS. VSS, PT HAS G TUBE WITH GBUTTON, PT'S FAMILY MAINTAINS G TUBE WELL AND ASSISTS WITH FEEDING AND MED ADMINISTRATION.
--- NOTE | 2018-09-07 06:30 | NUR ---
PT INCONTINENT OF URINE AND STOOL, ATTENDS CHANGED, PT RESTLESS AFTER CHANGING, PT ABLE TO VERBALIZE THAT HE IS IN PAIN AND WOULD LIKE PAIN MEDICATION BY RESPONDING WITH SIMPLE "YES", PT GIVEN PRN PAIN MEDICATION PER EMAR, NO FURTHER REQUESTS AT THIS TIME, IV FLUIDS INFUSING PER EMAR WNL. CALL LIGHT WITHIN REACH.
--- NOTE | 2018-09-07 08:00 | NUR ---
REPORT RECEIVED FROM LAB COORDINATOR RN. PT IN BED AWAKE WITH MOTHER AT BEDSIDE ASSISTING WITH ATTENDS [facility]. LR AT 75ML/HR INFUSING. [facility] HOME WEDGE PILLOWS USED FOR PT POSITIONING. BREAKFAST AT BEDSIDE, MOTHER WITH FEEDING VIA J-TUBE. NURSE AT BEDSIDE. CPOX IN PLACE WITH 2L NC ON PT. SATURATIONS AND HEART RATE WNL. STUDENT NURSE TO BE WITH PT TODAY. ZOSYN INFUSING AT CORRECT RATE. CALL LIGHT IN REACH.
--- NOTE | 2018-09-07 08:10 | NUR ---
Report received from overnight caregiver nurse. Pt. calm and resting in bed. Mom at bedside. Mom did morning feeding. Assessment will be done with 0900 medication administration to limit pt. disturbances and promote calm environment.
--- NOTE | 2018-09-07 11:00 | NUR ---
DR ALVES OFFICE CALLED AND MSG LEFT FOR [facility] NURSE TO RETURN CALL TO SCHEDULE APPOINTMENT FOR PT TO BE SEEN PER DR ORELLANA REQUEST.
--- NOTE | 2018-09-07 11:05 | NUR ---
Pt. appears to be sleeping and resting comfortably. Heart rate in mid 80s. Caregiver at bedside.
--- NOTE | 2018-09-07 12:47 | NUR ---
PT ASLEEP, CG IN RM, MOTHER HAD JUST LEFT FOR A BREAK. WILL FOLLOW NEEDED
--- NOTE | 2018-09-07 15:14 | NUR ---
PHYSICAL THERAPY IN TO SEE PATIENT. MOTHER AND PHYSICAL THERPAY GOT PT UP TO CHAIR. PT TOLERATED WELL.
--- NOTE | 2018-09-07 15:44 | NUR ---
PATIENT SITTING UP IN CHAIR. CAREGIVER IN ROOM. LINENS CHANGED. CALL LIGHT WITHIN REACH. NO OTHER NEEDS AT THIS TIME
--- NOTE | 2018-09-07 16:18 | NUR ---
DR CORTEZ OFFICE CALLED AND SECOND MSG LEFT REQUESTING TO SCHEDULE APPOINTMENT FOR PT.
--- NOTE | 2018-09-07 17:00 | NUR ---
PT INCONT OF URINE. 2P COLIN BACK TO BED T ARMAND ATTENDS. PT SAT UP FOR DINNER VIA J TUBE. CAREGIVER IN ROOM TO HELP WITH FEEDING. PT APPEARS COMFORTABLE, NO VISABLE SIGNS OF PAIN. CALL LIGHT IN REACH.
--- NOTE | 2018-09-07 17:50 | NUR ---
PATIENT RESTING IN BED. CAREGIVER IN ROOM. VITAL SIGNS AND I&O DONE. CALL LIGHT WITHIN REACH. NO OTHER NEEDS AT THIS TIME
--- NOTE | 2018-09-07 19:15 | NUR ---
SHIFT REPORT RECEIVED FROM SHANIA HARTMAN. PT RESTING IN BED QUIETLY AND APPEARS COMFORTABLE. IV FLUIDS INFUSING, SITE WNL. MOTHER IN ROOM WITH PT. NO NEEDS AT THIS TIME. CALL LIGHT IN REACH.
--- NOTE | 2018-09-07 19:40 | NUR ---
PER DR ORELLANA, OKAY TO LEAVE CURRENT IV IN PLACE EVEN THOUGH IT IS DUE TO BE CHANGED. PT IS A TENTITIVE DISCHARGE IN THE A.M. AND IS A KNOWN DFFICULT STICK.
--- NOTE | 2018-09-07 21:20 | NUR ---
NO KNOWN IV COMPATABILITY BETWEEN ZOSYN AND D5LR ON CLINICAL PHARMACOLOGY. IN MED BOOK, COMPATABILITY DEPENDS ON DOSAGE AND CONSULTATION WITH PHARMASIST IS SUGGESTED. THIS RN UNABLE TO CONTACT TELEPHARMACY AFTER 2 ATTEMPTS. PER SHERRY WHITING TO PLACE IV MAINTAINENCE D5LR ON STANDBY WHILE SCHEDULED ZOSYN INFUSES.
--- NOTE | 2018-09-07 21:45 | NUR ---
ASSESSMENT COMPLETE. MEDICATIONS GIVEN (SEE EMAR) VIA G-TUBE WITH HELP FROM PT'S MOTHER. PT APPEARS COMFORTABLE, NO FACIAL GRIMACING OR MOANING NOTED. ARM/HAND CONTRACTORS NOTED, HEEL PROTECTORS IN PLACE FOR CONTRACTORS. IV FLUIDS INFUSING, SITE WNL. PT'S MOTHER DENIES NEEDS OR QUESTIONS AT THIS TIME. CALL LIGHT IN REACH.
--- NOTE | 2018-09-07 22:22 | NUR ---
VITALS AND I&OS DONE AND CHARTED. MOTHER IN ROOM WHEN I LEFT. SHE OR THE PT NEED NOTHING MORE AT THIS TIME.
--- NOTE | 2018-09-07 22:35 | NUR ---
PT REQUIRED SUCTION AFTER HAVING 50 MLS YELLOW COLORED EMESIS. SUCTION PERFORMED, HOB REMAINS ELEVATED, PT ON SIDE FOR ASPIRATION PRECAUTION. NO REPSIRTATORY DISTRESS NOTED DURING OR FOLLOWING EMESIS. O2 SAT REMAIN WNL, PT ON RA.
--- NOTE | 2018-09-07 23:00 | NUR ---
SCHEDULED CARAFATE GIVEN (SEE EMAR). NO FURTHER NEEDS, MOTHER IN ROOM.
--- NOTE | 2018-09-07 23:44 | NUR ---
PT AWAKE AND RESTING IN BED, RR WNL. PT ON RA, CPOX IN PLACE. O2 SAT 91%, HR 88. PT APPEARS COMFORTABLE, HOB ELEVATED. PT RESTING ON SIDE.
--- NOTE | 2018-09-08 00:38 | NUR ---
PT RESTING IN BED AWAKE. APPEARS COMFORTABLE, PT ON RA. CPOX IN PLACE, O2 SAT 90-92%, HR WNL. CALL LIGHT IN REACH.
--- NOTE | 2018-09-08 01:09 | NUR ---
THIS RN IN ROOM TO CHECK ON PT GARBLED SPEECH WAS NOTED. PT AWAKE, NO DISTRESS NOTED. PT ON RA, O2 SAT IN LOW 90'S, HR WNL. PT SUCTIONED BY THIS RN, RASHEEDA APPLIED. IV SITE WNL, BLOOD RETURN NOTED, IV ABX INFUSING. NEW COBAN APPLIED. CALL LIGHT IN REACH.
--- NOTE | 2018-09-08 01:11 | NUR ---
PT'S MOTHER RETURNED. UPDATE PROVIDED. MOTHER NOW IN ROOM WITH PT.
--- NOTE | 2018-09-08 03:04 | NUR ---
ASSESSMENT COMPLETE. NO NEW CONCERNS. PT ON RA, O2 SAT 93%, HR 55. IV FLUIDS INFUSING, SITE WNL. PT APPEARS COMFORTABLE, NO FACIAL GRIMACING OR MOANING NOTED. MOTHER IN ROOM SLEEPING. CALL LIGHT IN REACH.
--- NOTE | 2018-09-08 04:23 | NUR ---
PT RESTING IN BED, EYES CLOSED, RR EVEN AND UNLABORED. PT ON RA, CPOX IN PLACE. O2 SAT 96-97%, HR WNL. NO DISTRESS NOTED. IV FLUIDS INFUSING. MOTHER IN ROOM. CALL LIGHT IN REACH.
--- NOTE | 2018-09-08 04:30 | NUR ---
PT HAD UNEVENTFUL NIGHT, SLEPT ON AND OFF DURING SHIFT. VSS, PT REMAINED ON RA ALL SHIFT, O2 SAT MAINTAINED IN 90'S. PT'S SPEECH GARBLED, ABLE TO STATE YES OR NO PER SHIFT REPORT. MOTHER IN ROOM AND VERY INVOLVED WITH CARE AND KNOWLEDGABLE. SUCTIONING PRN, PT HAD 50 MLS YELLOW EMESIS X1. CONTRACTURES NOTED, HEEL PROTECTORS IN PLACE TO HANDS. PT'S MOTHER ASSISTS WITH REPOSITIONING. PT INCONTINENT OF URINE, CHANGE PRN. NO BM THIS SHIFT.IV FLUIDS PER MD ORDERS, SCHEDULED IV ABX.
--- NOTE | 2018-09-08 07:15 | NUR ---
REPORT RECEIVED FROM SHANIA SOLOMON. PT RESTING ON RIGHT SIDE, SMILES WHEN SPOKEN TO. O2 SATURATION READS 96% ON ROOM AIR, HR = 70. SUCTIONING DONE FOR SMALL AMOUNT OF WHITE FOAMY SPUTUM IN MOUTH. BED RAILS UP. BED ALARM ON.
--- NOTE | 2018-09-08 08:02 | NUR ---
THIS RN TO ROOM TO CHECK ON PT. PT RESTING ON RIGHT SIDE. SMILES WITH INTERACTION. PT APPEARS RELAXED. BED RAILS UP. CALL LIGHT WITHIN REACH.
--- NOTE | 2018-09-08 08:13 | NUR ---
PTS MOTHER ARRIVED TO ROOM. MOTHER UPDATED. PT CONTINUES TO SMILE. MOTHER REQUESTS CARAFATE AND SUPPOSITORY BE GIVEN BEFORE SHE GETS PT UP FOR BREAKFAST. MEDICATIONS GIVEN REQUESTED. CONSULTING PSYCHIATRIST TO BEDSIDE TO ASSIT MOTHER WITH TRANSFER. NO ADDITIONAL REQUESTS OR COMPLAINTS AT THIS TIME.
--- NOTE | 2018-09-08 09:32 | NUR ---
MORNING ASSESSMENT AND MEDICATIONS DUE. THIS RN TO BEDSIDE. PT UP TO WHEELCHAIR. MOTHER FINISHING BREAKFAST ADMINISTRATION THROUGH G-TUBE. MOTHER STATES PT "SEEMS TENSE" SEE MAR FOR MEDICATION GIVEN. ASSESSMENT DONE. MOTHER STATES PT "SEEMS A LITTEL PUFFY." NO PROMINATE EDMEA NOTED. MEDICATIONGS GIVEN (SEE MAR). G-TUBE FLUSHED WITH 20ML TAP WATER. MOTHER UP DATED ON PLAN OF CARE. MIRALAX HELD PER MOTHERS REQUEST. NO ADDITIONAL REQUESTS OR CONCERNS AT THIS TIME. PT STRAPPED IN WHEELCHAIR. MOTHER AT BEDSIDE.
--- NOTE | 2018-09-08 10:00 | NUR ---
THIS RN TO ROOM FOR ROUNDS WITH MD. PT UP TO WHEELCHAIR, SMILING AND INTERACTIVE. FAMILY ANTICIPATING DISCHARGE TODAY. NO ADDITIONAL REQUESTS OR COMPLAINTS AT THIS TIME.
[2018-09-08] MEDS ORDERED: DOXYCYCLINE HY100 MG PO (10:03)
[2018-09-08] MEDS ORDERED: BELLADONNA-OPIU30 MG PR (10:04)
--- NOTE | 2018-09-08 10:16 | NUR ---
MEDICATION DUE. THIS RN TO BEDSIDE. PT CONTINUES UP TO WHEEL CHAIR. MOTHER STATES PT SEEMS COMFORTABLE, 0/10 ON FACES SCALE. PT SMILING AND INTERACTIVE. MEDICATION GIVEN. MOTHER UPDATED ON PLAN OF CARE AND DISCHARGE. NO ADDITIONAL REQUESTS OR COMPLAINTS AT THIS TIME.
--- NOTE | 2018-09-08 10:37 | NUR ---
PATIENT SITTING UP IN WHEELCHAIR. MOM AND RN IN ROOM. FINAL VITAL SIGNS WERE OBTAINED PRIOR TO DISCHARGE FROM THE UNIT. I&O DONE.
--- NOTE | 2018-09-08 11:00 | NUR ---
PT READY FOR DISCHARGE. PT DRESSED, DEPENDS CHANGED. PTS MOTHER HAS VISITED WITH PHARMACIST. PTS MOTHER STATES ALL QUESTIONS AND CONCERNS HAVE BEEN ANSWERED. PT WHEELED FROM UNIT.
== END 2018-09-08 11:30 | disposition home or self-care (01) | DRG 871 ==
LOC: ED 14:24 → CCU 19:00 → MS 09-06 18:45
PROVIDERS: ADMIT Student in an Organized Health Care Education/Training Program
DX: A41.01 Sepsis due to Methicillin susceptible Staphylococcus aureus (principal); G93.41 Metabolic encephalopathy; G80.0 Spastic quadriplegic cerebral palsy; N39.0 Urinary tract infection, site not specified; E87.0 Hyperosmolality and hypernatremia; R65.20 Severe sepsis without septic shock; N32.89 Other specified disorders of bladder; K21.9 Gastro-esophageal reflux disease without esophagitis; G40.909 Epilepsy, unspecified, not intractable, without status epilepticus; N31.9 Neuromuscular dysfunction of bladder, unspecified; R32 Unspecified urinary incontinence; R15.9 Full incontinence of feces; R13.12 Dysphagia, oropharyngeal phase; Z79.899 Other long term (current) drug therapy; Z88.1 Allergy status to other antibiotic agents; Z88.5 Allergy status to narcotic agent; Z93.1 Gastrostomy status
CPT/HCPCS: 36415; 51798; 71045; 74018; 74177; 80048; 80053; 81001; 82550; 83605; 83735; 84100; 85025; 87077; 87088; 87186; 87493; 87502; 93005; 93010; 96361; 97163; 99285-25; J0744; J1170; J1200; J1650; J2060; J2405; J2543; J3480; J7030; J7060; J7070; J7120; Q9967

== ENCOUNTER 2018-10-12 07:27 | Inpatient (IN) | payer OTHER ==
[~2018-10-12] VITALS: Ht 170.2 cm; Wt 46.9 kg
--- OUTSIDE RECORDS SUMMARY | ~2018-10-12 | XMS | Clinical Summary ---
Demographics + + + | Address | [address] | | | [place] [address] | + + + | Home Phone | | + + + | Preferred Language | Unknown | + + + | Marital Status | Single | + + + | Gnosticist Affiliation | [id number] | + + + | Race | Unknown | + + + | Ethnic Group | Unknown | + + + Author + + + | Author | [facility] | | | and [place] | + + + | Organization | [facility] | | | and [place] | + + + | Address | Unknown | + + + | Phone | Unavailable | + + + Support + + +---------+ + | Name | Relationship | Address | Phone | + + +---------+ + | Olga Kim | ECON | Unknown | | + + +---------+ + | Eliseo Kim | ECON | Unknown | | + + +---------+ + | ELISEO KIM | ECON | Unknown | | + + +---------+ + Care Team Providers + +------+ + | Care Hydraulics Engineer Name | Role | Phone | + +------+ + | Augusto Karimi | PP | | | MD | | | + +------+ + Allergies + + + + + + | Active Allergy | Reactions | Severity | Noted | Comments | | | | | Date | | + + + + + + | Amoxicillin | Other (See Comments) | Medium | 09/15/19 | Hepatitis per | | | | | 16 | records from [facility] | + + + + + + | Amoxicillin-Pot | Other (See Comments) | Medium | 09/15/19 | Caused C. Diff per | | Clavulanate | | | 16 | records from [facility] | + + + + + + | Morphine Sulfate | | | | | + + + + + + | Oxacillin | Other (See Comments) | High | 09/15/19 | aplastic anemia | | | | | 16 | per records from | | | | | | [facility] | + + + + + + Medications + + + +---------+------+------+-------+ | Medication | Sig | Dispensed | Refills | Star | End | Statu | | | | | | t | Date | s | | | | | | Date | | | + + + +---------+------+------+-------+ | baclofen | Take as directed | | 0 | 09/1 | | Activ | | (LIORESAL) 20 mg | when needed for pump | | | 4/20 | | e | | tablet | failure | | | 12 | | | + + + +---------+------+------+-------+ | Oral Hygiene | Use as directed | | 0 | 09/1 | | Activ | | Products (SUCTION | | | | 4/20 | | e | | ORAL SWAB SYSTEM) | | | | 12 | | | | KIT | | | | | | | + + + +---------+------+------+-------+ | Acetaminophen | Take 15 mL by mouth | | 0 | 09/1 | | Activ | | (TYLENOL EXTRA | every 4 hours as | | | 4/20 | | e | | STRENGTH) 167 MG/5ML | needed | | | 12 | | | | LIQD | | | | | | | + + + +---------+------+------+-------+ | esomeprazole | Take 40 mg by mouth | | 0 | | | Activ | | (NEXIUM) 40 mg | every morning | | | | | e | | packet | (before breakfast). | | | | | | + + + +---------+------+------+-------+ | sucralfate | Take 1 g by mouth 4 | | 0 | | | Activ | | (CARAFATE) 1 g | times daily. | | | | | e | | tablet | | | | | | | + + + +---------+------+------+-------+ | docusate-senna | Take 1 tablet by | | 0 | | | Activ | | (SENOKOT-S) 50-8.6 | mouth Daily. | | | | | e | | mg per tablet | | | | | | | + + + +---------+------+------+-------+ | Probiotic Product | Take by mouth 2 | | 0 | | | Activ | | (PROBIOTIC COLON | times daily. | | | | | e | | SUPPORT) CAPS | | | | | | | + + + +---------+------+------+-------+ | Iron-Vitamins | Take 5 mLs by mouth | | 0 | | | Activ | | (GERITOL) LIQD | every evening. | | | | | e | + + + +---------+------+------+-------+ | adult multivitamin | Take 5 mLs by mouth | | 0 | | | Activ | | liquid | every evening. | | | | | e | + + + +---------+------+------+-------+ | ALOE VERA JUICE | Take 6 oz by mouth | | 0 | | | Activ | | LIQD | every evening. | | | | | e | + + + +---------+------+------+-------+ | albuterol 2.5 mg/3 | Take 3 mLs by | | 0 | 03/2 | | Activ | | mL nebulizer | nebulization every 4 | | | 0/20 | | e | | solution | hours as needed. | | | 16 | | | + + + +---------+------+------+-------+ | magnesium oxide | Take 1 tablet via | 100 | 0 | 03/2 | | Activ | | (MAG-OX) 400 mg | G-tube 2 times | tablet | | 0/20 | | e | | tablet | daily. | | | 16 | | | + + + +---------+------+------+-------+ Active Problems + + + | Problem | Noted Date | + + + | Aspiration pneumonia | 2015 | + + + | Sepsis | 2015 | + + + | FEEDING DIFFICULTY | 08/17/2011 | + + + | CHANGE IN BOWEL HABITS | 08/17/2011 | + + + | CONSTIPATION-UNSPECIFIED | 08/17/2011 | + + + + + | Overview: ICD-10 Record update | + + + + + | GERD | 08/17/2011 | + + + | SLOW TRANSIT CONSTIPATION | | + + + | MEGACOLON | | + + + | PNEUMONIA DUE TO PSEUDOMONAS | | + + + | QUADRIPLEGIC CEREBRAL PALSY | | + + + Social History + +-------+ +--------+------+ | Tobacco Use | Types | Packs/Day | Years | Date | | | | | Used | | + +-------+ +--------+------+ | Never Smoker | | | | | + +-------+ +--------+------+ + + +---------+ + | Alcohol Use | Drinks/We | oz/Week | Comments | | | ek | | | + + +---------+ + | No | | | | + + +---------+ + + + + | Sex Assigned at | Date Recorded | | | | + + + | Not on file | | + + + + + + + | Job Start Date | Occupation | Industry | + + + + | Not on file | Not on file | Not on file | + + + + + + + + | Travel History | Travel Start | Travel End | + + + + + + | No recent travel history available. | + + Last Filed Vital Signs + + + + | Vital Sign | Reading | Time Taken | + + + + | Blood Pressure | 98/56 | 09/20/2015799 PDT | + + + + | Pulse | 91 | 09/20/2015799 PDT | + + + + | Temperature | 36.7 C (98.1 F) | 09/20/2015799 PDT | + + + + | Respiratory Rate | 20 | 09/20/2015799 PDT | + + + + | Oxygen Saturation | 91% | 09/20/20151130 PDT | + + + + | Inhaled Oxygen | - | - | | Concentration | | | + + + + | Weight | 41.8 kg (92 lb 2.4 | 09/19/2015399 PDT | | | oz) | | + + + + | Height | 170.2 cm (5' 7") | 09/15/2015104 PDT | + + + + | Body Mass Index | 14.43 | 09/15/2015104 PDT | + + + + Plan of Treatment + + + + + | Health Maintenance | Due Date | Last Done | Comments | + + + + + | Vaccine: | | 05/01/2007, 09/30/2003, | | | Dtap/Tdap/Td (6 - | 7 | 11/19/1997, Additional history | | | Td) | | exists | | + + + + + | Vaccine: Influenza | | | | | (Season Ended) | 9 | | | + + + + + Results Not on filefrom Last 3 Months Insurance + +--------+ +--------+ +---------+--------+ | Payer | Benefi | Subscriber | Effect | Phone | Address | Type | | | t Plan | ID | ramiro | | | | | | / | | Dates | | | | | | Group | | | | | | + +--------+ +--------+ +---------+--------+ | [employer] | [employer] | [id number] | | [phone] | | Medica | | MEDICAID HMO | HEALTH | | [phone]-Pr | 1 | | id | | | MDCD | | esent | | | | | | HMO OR | | | | | | + +--------+ +--------+ +---------+--------+ + +--------+ +--------+ + + | Guarantor Name | Accoun | Relation to | Date | Phone | Billing Address | | | t Type | Patient | of | | | | | | | | | | + +--------+ +--------+ + + | Vinod Hernandez | Person | Self [birth year] | [address] | | | al/Fam | | 1991 | [phone] | [place] [address] | | | roya | | | 8 (Home) | | + +--------+ +--------+ + + Advance Directives Patient has advance care planning documents, and code status on file. For more information, please contact:[facility] [place] [address] + + + + + | Code Status | Date | Date | Comments | | | Activated | Inactivated | | + + + + + | Full Code | 2015 | 09/20/2015 | | | | 2:10 | 16:07 | | + + + + +
--- OUTSIDE RECORDS SUMMARY | ~2018-10-12 | XMS | Encounter Summary ---
Demographics + + + | Address | [address] | | | [place] [address] | + + + | Home Phone | | + + + | Preferred Language | Unknown | + + + | Marital Status | Single | + + + | Islam Affiliation | MET | + + + | Race | White | + + + | Ethnic Group | Not or | + + + Author + + + | Author | [facility] | + + + | Organization | [facility] | + + + | Address | Unknown | + + + | Phone | Unavailable | + + + Care Team Providers + +------+ + | Care Sheet Rock Nailer Name | Role | Phone | + +------+ + | Augusto Karimi MD | PCP | | + +------+ + Reason for Referral Consultation (Routine) +--------+--------+ + + + + | Status | Reason | Specialty | Diagnoses / | Referred By | Referred To | | | | | Procedures | Contact | Contact | +--------+--------+ + + + + | Closed | | Neurology | Diagnoses | [place], | [facility] | | | | | Cerebral | Billy Perez MD | [facility] [address] | | | | | palsy, | [address] | [address] | | | | | unspecified | [place] [address]el | Mail Code: | | | | | type (HCC) | [facility] | [facility] | | | | | Procedures | [place], [place] | for Health | | | | | CONSULT TO | [address] | and [place], | | | | | NEUROLOGY | Phone: | 8th floor | | | | | | [phone] | [place], [place] | | | | | | Fax: | [address] | | | | | | [phone] | Phone: | | | | | | | [phone] | | | | | | | Fax: | | | | | | | [phone] | +--------+--------+ + + + + Reason for Visit + + + | Reason | Comments | + + + | Return Patient | EPNE Neck pain | + + + Encounter Details +--------+---------+ + + + | Date | Type | Department | Care Team | Description | +--------+---------+ + + + | 07/27/ | Office | [facility] | Billy Agustin, | Neck pain (Primary | | 2019 | Visit | Sports Medicine & | [address] | Dx); Cerebral palsy, | | | | Orthopaedic Surgery | [address] | unspecified type | | | | [address] | [place], [place] | ([facility]) | | | | [place], [place] | [address] | | | | | [address] | [phone] | | | | | [phone] | | | +--------+---------+ + + + Social History + +-------+ [...] on file | | + + + as of this encounter Instructions Patient Instructions - Rah Davenport MA - 07/27/2018 11:30 AM PSTReferral [facility] Progress Notes Billy Agustin MD - 07/27/2018 11:30 AM PSTProcedure: HWR T2-T6 and L4-Pelvis DOS: 05/11/15 Subjective: Roland Ricardo is a 27 y.o. Male patient of here today neck and arm pain. Well known to me with history of neuromuscular scolosis with loose galveston hardware that I partially removed 3 years ago. Mom brings him back today with reports of increasing neck pa in and spasticity. Review of Systems: An Eight Point review of systems was conducted. Denies recent F/C/N/V. Likewise no SOB, CP, TORRES, dizziness. No changes in B/B. Objective: General: The patient is in no acute distress who appears of stated age. Breathing is norm al. Skin is normal color, temperature. No significant lymphedema. Incisions well healed Imaging shows stable cervical scoliosis A/P: It is possible that he is developing a bit of a radiculopathy on the concave side of his ce rvical deformity, although subjective history is difficult and exam is limited due to his CP . I do not think that a small decompression surgery would cure symptoms related to deformity , and I do not think that a cervicothoracic deformtiy correction is in his best interest. P rimary issue continues to be spasiticty and his mother is asking about rhizotomy. I told the m I do not do this procedure and suggested Dr. Slaughter or Tamar at [facility] Neurosurgery for t his discussion. They would like to pursue this and a referral was placed today. in this enco unter Plan of Treatment +--------+---------+ + + + | Date | Type | Specialty | Care Team | Description | +--------+---------+ + + + | 10/25/ | Office | Neurological Surgery | Teodoro Slaughter, | | | 2018 | Visit | | [address] | | | | | | [place], [place] | | | | | | [address] | | | | | | [phone] | | | | | | | | +--------+---------+ + + + as of this encounter Procedures + +--------+ + + + | Procedure Name | Priori | Date/Time | Associated Diagnosis | Comments | | | ty | | | | + +--------+ + + + | X-RAY SPINE CERV 4 | Routin | 07/27/2018 | Neck pain | Results for this | | VIEWS | e | 11:25 AM | | procedure are in the | | | | PST | | results section. | + +--------+ + + + in this encounter Results X-RAY SPINE CERVICAL 4 VIEWS (07/27/2018 11:25 AM) + + + | Narrative | Performed At | + + + | [address] [place] [address] | [facility] | | [place] [address] | DEPARTMENT OF | | [phone] | RADIOLOGY | | Name: ROLAND RICARDO Phys: BILLY AGUSTIN | | | : 1990 Sex: M CSN: | | | [id number] MR# [id number] Exam Date: | | | 07/27/2018 EXAM: X-RAY SPINE CERVICAL 4 VIEWS 25084 | | | CLINICAL HISTORY: Neck pain. COMPARISON: None available. | | | TECHNIQUE: AP, lateral, lateral flexion and lateral extension views | | | of the cervical spine were obtained. FINDINGS: There is normal | | | cervical lordosis with severe dextroscoliosis. The vertebral body | | | heights, intervertebral disc space heights and spinolaminar alignment | | | are normal. The C1-2, craniocervical and cervicothoracic | | | relationships are normal. There is no significant translation with | | | flexion or extension. The prevertebral soft tissues are not | | | thickened. IMPRESSION: Severe dextroscoliosis with normal | | | spinolaminar alignment and no significant translation with flexion or | | | extension. REPORT SIGNED IN OTHER VENDOR SYSTEM 07/28/2018 | | | Reported by: PAPITO RUTLEDGE MD Electronically signed by: | | | PAPITO RUTLEDGE MD Transcribed Date/Time: 07/28/2018 13:18 | | | Inventory Control Planner: FLUENCY | | + + + + + | Procedure Note | + + | Interface, Radiology Results - 07/28/2018 1:23 PM PST [address] | [place] [address] | | Name: ROLAND RICARDO Phys: BILLY AGUSTIN : 1990 Sex: M | | CSN: [id number] MR# [id number] Exam Date: 07/27/2018 EXAM:X-RAY SPINE CERVICAL 4 | | VIEWS 97127 CLINICAL HISTORY:Neck pain. COMPARISON:None available. TECHNIQUE:AP, | | lateral, lateral flexion and lateral extension views of thecervical spine were obtained. | | FINDINGS:There is normal cervical lordosis with severe dextroscoliosis. Thevertebral | | body heights, intervertebral disc space heights andspinolaminar alignment are normal. | | The C1-2, craniocervical andcervicothoracic relationships are normal. There is no | | significanttranslation with flexion or extension. The prevertebral soft tissuesare not | | thickened. IMPRESSION:Severe dextroscoliosis with normal spinolaminar alignment and | | nosignificant translation with flexion or extension. REPORT SIGNED IN OTHER VENDOR | | SYSTEM 07/28/2018 Reported by: PAPITO RUTLEDGE MD Electronically signed by: PAPITO | | MD AAMIR Transcribed Date/Time: 07/28/2018 13:18Transcriptionist: FLUENCY | | | |CLINICAL HISTORY: | |Neck pain. | | | |COMPARISON: | |None available. | | | |TECHNIQUE: | |AP, lateral, lateral flexion and lateral extension views of the | |cervical spine were obtained. | | | |FINDINGS: | |There is normal cervical lordosis with severe dextroscoliosis. The | |vertebral body heights, intervertebral disc space heights and | |spinolaminar alignment are normal. The C1-2, craniocervical and | |cervicothoracic relationships are normal. There is no significant | |translation with flexion or extension. The prevertebral soft tissues | |are not thickened. | | | |IMPRESSION: | |Severe dextroscoliosis with normal spinolaminar alignment and no | |significant translation with flexion or extension. | | | | | | REPORT SIGNED IN OTHER VENDOR SYSTEM 07/28/2018 | |Reported by: PAPITO RUTLEDGE MD | | | |Electronically signed by: PAPITO RUTLEDGE MD | | | |Transcribed Date/Time: 07/28/2018 13:18 | |Inventory Control Planner: FLUENCY | | | | | | | + + + +---------+ + + | Performing | Address | City/State/Zipcode | Phone Number | | Organization | | | | + +---------+ + + | [facility] | | | | | RADIOLOGY | | | | + +---------+ + + in this encounter Visit Diagnoses + + | Diagnosis | + + | Neck pain - Primary | + + | Cervicalgia | + + | Cerebral palsy, unspecified type (HCC) | + +"
--- OUTSIDE RECORDS SUMMARY | ~2018-10-12 | XMS | Clinical Summary ---
Demographics + + + | Address | [address] [place] [address] RD | | | [place] [address] | + + + | Home Phone | | + + + | Preferred Language | Unknown | + + + | Marital Status | Single | + + + | Pentecostalism Affiliation | MET | + + + [...] Team Providers + +------+ + | Care Food Safety Coordinator Name | Role | Phone | + +------+ + | Augusto Karimi MD | PP | | + +------+ + Source Comments LINDABECK is fully live on both EpicCare Ambulatory and EpicCare InPatient.[facility] Allergies + + + + + + [...] Activ | | Magnesium (NEXIUM | tube-termite helper | | | | | e | [...] | | | | Activ | | nuqltfaynzmg-svad-sp | once daily. | | | | [...] | ALLERGY | | | 0 | 01/1 | | Activ | | RELIEF,DIPHENHYDRAMI | | | | 8/20 | | e | | N, 12.5 mg/5 mL oral | | | | 16 | | | | liquid | | | | | | | + + +---------+---------+------+------+-------+ | tiZANidine 4 mg | | | | 01/2 | | Activ | | oral tablet | | | | 4/20 | | e | | | | | | 19 | | | + + +---------+---------+------+------+-------+ Active [...] | + + + | Seizure disorder ([facility]) | 09/12/2010 | + + + | Feeding by G-tube ([facility]) | 09/12/2010 | + + + | Reflux | 09/12/2010 | + + + | Hypotension | 09/12/2010 | + + + | Bacteremia | 09/12/2010 | + + + | Vomiting | 08/31/2010 | + + + Encounters +--------+ + + + + | Date | Type | Specialty | Care Team | Description | +--------+ + + + + | 08/02/ | Documentati | | Billy Agustin, | | | 2018 | on | | MD | | +--------+ + + + + | 07/27/ | Office | | Billy Agustin, | Neck pain (Primary | | 2018 | Visit | | MD | Dx); Cerebral palsy, | | | | | | unspecified type | | | | | | (HCC) | +--------+ + + + + | 07/27/ | Hospital | | | | | 2018 | Encounter | | | | +--------+ + + + + from Last 3 Months Immunizations + + + + | Name [...] | 04/13/2009, 05/01/2007, 05/11/2004, | | | (incl. purified | 04/23/1998, 05/11/1995, 06/20/1994 | | | surface antigen) | | | + + + + | [id number], | 06/04/2009 | | | injectable | | | + + + + | MCV4P | 05/01/2007 | | + + + + | MMR | 11/19/1997, 12/29/1993 | | + + + + | Polio-Oral | 11/19/1997, 12/29/1993, 1992 | | + + + + | Td (adult), 2 Lf | 09/30/2003 | | | tetanus toxoid, | | | | preservative free, | | | | adsorbed | | | + + + + [...] + + + + Plan of Treatment +--------+---------+ + + + | Date | Type | Specialty | Care Team | Description | +--------+---------+ + + + | 10/25/ | Office | | Teodoro Slaughter, | | | 2019 | Visit | | [address] | | | | | | [place], [place] | | | | | | [address] | | | | | | [phone] | | | | | | | | +--------+---------+ + + + + + + + + | Health Maintenance | Due Date | Last Done | Comments | + + + + + | Influenza (Flu) | Completed | 03/28/2018, 06/04/2009, | | | vaccination: MyChart | | 04/13/2009, Additional history | | | opt out | | exists | | + + [...] | Ii 40ml - | | | [facility] | | 2013 | 0 | | [id number]: Qty: 1 | | Abdome | | [...] | | | | | | | [id number] | + +------+--------+ +--------+--------+--------+ | Tisseel Vh Sd 4ml (Fibrin | | N/A: | KEITA | | 03/02/ | [id number] | | Glue) Dehp - | | Spine | HEALTHCARE | | 2014 | 7 | | [id number]: Qty: | | | | | | /[id number] | | 1 on 07/24/2013 by Preston, | | | | | | [id number] | | MD Crow | | | | | | 7 | | | | | | | | /[id number] | | | | | | | | 094 | + +------+--------+ +--------+--------+--------+ | Implant Duragen Suturable 1 X | | N/A: | INTEGRA | | 11/30/ | [id number] | | 3 - [id number]: Qty: | | Spine | LIFESCIENCE | | 2014 | 91 / | | 1 on 09/02/2013 by Preston, | | | S | | | /[id number] | | MD Crow | | | | | | 12 | + +------+--------+ +--------+--------+--------+ | Tisseel Frozen 10ml - | | N/A: | KEITA | | 01/30/ | [id number] | | [id number]: Qty: 1 on | | Spine | HEALTHCARE | | 2014 | 3 / | | 09/02/2013 by Crow Johnston, | | | | | | /VND4N | [employer] [facility] | | | | | | 074 [...] | | | | + +------+-------+ +--------+--------+--------+ Procedures + +--------+ + + + | [...] section. | + +--------+ + + + from Last 3 Months Results X-RAY SPINE CERVICAL 4 VIEWS (07/27/2018 11:25 AM) + + + | Narrative | Performed At | + + + | [address] | [facility] | | [place] [address] [facility] | | [phone] | RADIOLOGY | | Name: ROLAND RICARDO Phys: BILLY AGUSTIN | | | : 1990 Sex: M CSN: | | | [id number] MR# [id number] Exam Date: | | | 07/27/2018 EXAM: X-RAY SPINE CERVICAL 4 VIEWS 29288 | | | CLINICAL HISTORY: Neck pain. [...] Transcribed Date/Time: 07/28/2018 13:18 | | | Insole Department Worker: FLUENCY | | + + + + + | Procedure Note | + + | Interface, Radiology Results - 07/28/2018 1:23 PM PST [address] | | [address] [place] [address] | | Name: SILVIA RICARDOE Phys: BILLY AGUSTIN : 1990 Sex: M | | CSN: [id number] MR# [id number] Exam Date: 07/27/2018 EXAM:X-RAY SPINE CERVICAL 4 | | VIEWS 50076 CLINICAL HISTORY:Neck pain. COMPARISON:None available. TECHNIQUE:AP, | [...] | | |Transcribed Date/Time: 07/28/2018 13:18 | |Insole Department Worker: [place] | | | | | | | + + + +---------+ + + | Performing | Address | City/State/[facility] | Phone Number | | Organization | | | | + +---------+ + + | [facility] | | | | | [facility]OLOGY | | | | + +---------+ + + from Last 3 Months Insurance + +--------+ +--------+ + + | Payer | Benefi | Subscriber | Type | Phone | Address | | | t Plan | ID | | | | | | / | | | | | | | Group | | | | | + +--------+ +--------+ + + | FUR CUTTING MACHINE OPERATOR MEDICAID | FUR CUTTING MACHINE OPERATOR | xxxxxxxx | Medica | | | | | [place] | | id | | | | | [place] | | | | | + +--------+ +--------+ + + | [place] | OHP | xxxxxxxx | Medica | [phone] [address] [address] | | | PLUS | | id | [phone] | [place] [address] | | | OPEN | | | | | | | CARD | | | | | + +--------+ +--------+ + + + +--------+ +--------+ + + | Guarantor Name | Accoun | Relation to | Date | Phone | Billing Address | | | t Type | Patient | of | | | | | | | | | | + +--------+ +--------+ + + | ROLAND RICARDO | Person | 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1990 | +- | [place] [address] | | | roya | | | [address] Home: | | | | | | | | | | | | | | [phone] | | | | | | | 2636 | | + +--------+ +--------+ + + | ROLAND RICARDO | Person | 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
--- OUTSIDE RECORDS SUMMARY | ~2018-10-12 | XMS | Clinical Summary ---
Demographics + + + | Address | [address] | | | [place] [address] | + + + | Home Phone | | + + + | Preferred Language | Unknown | + + + | Marital Status | Single | + + + | Uatsdin Affiliation | 1073 | + + + | Race | Unknown | + + + | Ethnic Group | Unknown | + + + Author + + + | Author | [facility] | | | and [place] | + + + | Organization | [facility] | | | and [place] | [...] Team Providers + +------+ + | Care Mechanical Planner Name | Role | Phone | + [...] | [employer] | [facility] | [id number] | | [phone] | | Medica | [...] Person | Self | [birth year] | | [address] | | | 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 For more information, please contact:[facility] RUMA Ye[place] [address] + + + + + | Code Status | Date | Date | Comments | | | Activated | Inactivated | | + + + + + | Full Code | 2015 | 09/20/2015 | | | | 2:10 | 16:07 | | + + + + +
--- OUTSIDE RECORDS SUMMARY | ~2018-10-12 | XMS | Encounter Summary ---
Demographics + + + | Address | [address] | | | [place] [address] | + + + | Home Phone | | + + + | Preferred Language | Unknown | + + + | Marital Status | Single | + + + | Worship Affiliation | MET | + + + | Race | White | + + + | Ethnic Group | Not or | + + + Author + + + | Author | [facility] | + + + | Organization | [facility] | + + + | Address | Unknown | + + + | Phone | Unavailable | + + + Care Team Providers + +------+ + | Care Polygraph Operator Name | Role | Phone | + +------+ + | Augusto Karimi MD | PCP | | + +------+ + Reason for Referral Consultation (Routine) + +--------+ + + + + | Status | Reason | Specialty | Diagnoses / | Referred By | Referred To | | | | | Procedures | Contact | Contact | + +--------+ + + + + | New Request | | Neurological | Diagnoses | Vamsi, | Sukhjinder, | | | | Surgery | Cerebral | Billy Perez MD | Teodoro Oviedo MD | | | | | palsy, | [address] | [address] | | | | | quadriplegic | [place]el | [place] | | | | | ([facility]) | [place] | [place], [place] | | | | | Procedures | [place], [place] | [address] | | | | | CONSULT TO | [address] | Phone: | | | | | NEUROSURGERY | Phone: | [phone] | | | | | | [phone] | Fax: | | | | | | Fax: | [phone] | | | | | | [phone] | | + +--------+ + + + + Encounter Details +--------+ + + + + | Date | Type | Department | Care Team | Description | +--------+ + + + + | 08/02/ | Documentati | Orthopaedics at | Billy Agustin, | | | 2019 | on | [facility] [address] | [address] | | | | | [place] Mailcode: [id number] | [place] [address] | | | | | [facility] | [place], [place] | | | | | and [place], | [address] | | | | | Floor [place], [place] | [phone] | | | | | [address] | | | | | | [phone] | | | +--------+ + + + + Social History + [...] + + + as of this encounter Plan of Treatment +--------+---------+ + + + | Date | Type | Specialty | Care Team | Description | +--------+---------+ + + + | 10/25/ | Office | Neurological Surgery | Teodoro Slaughter, | | | 2018 | Visit | | [address] | | | | | | [place], [place] | | | | | | [address] | | | | | | [phone] | | | | | | | | +--------+---------+ + + + as of this encounter Visit Diagnoses + + | Diagnosis | + + | Cerebral palsy, quadriplegic (HCC) - Primary | + + | Congenital quadriplegia | + +"
--- OUTSIDE RECORDS SUMMARY | ~2018-10-12 | XMS | Clinical Summary ---
Demographics + + + | Address | [address] [place] [address] RD | | | [place] [address] | + + + | Home Phone | | + + + | Preferred Language | Unknown | + + + | Marital Status | Single | + + + | Sabianism Affiliation | MET | + + + [...] Team Providers + +------+ + | Care Light Equipment Operator Name | Role | Phone | + +------+ + | Augusto Karimi MD | PP | | + +------+ + Source Comments LINDABECK is fully live on both EpicCare Ambulatory and EpicCare InPatient.[facility] Allergies + + + + [...] | Activ | | Magnesium (NEXIUM | tube-buttermaker continuous churn | | | | | e | [...] | | | | Activ | | pcmqiccrhvgy-wjdo-vj | once daily. | | | | [...] | + + + | Seizure disorder ([facility]) | 09/12/2010 | + + + | Feeding by G-tube ([facility]) | 09/12/2010 | + + + | [...] | | + + + + | [id number]-[id number], | 06/04/2009 | | | injectable | [...] | | 2019 | Visit | | [address] | | | | | | [place], [place] | | | | | | [address] | | | | | | [phone] | | | | | | | [...] | Ii 40ml - | | | [facility] | | 2013 | 0 | | [id number]: Qty: 1 | | Abdome | | [...] | | | | | | | [address] | + +------+--------+ +--------+--------+--------+ | Tisseel Vh Sd 4ml (Fibrin | | N/A: | KEITA | | 03/02/ | [id number] | | Glue) Dehp - | | Spine | HEALTHCARE | | 2014 | 7 | | [id number]: Qty: | | | | | | /[id number] | | 1 on 07/24/2013 by Preston, | | | | | | [id number] | | MD Crow | | | | | | 7 | | | | | | | | /[id number] | | | | | | | | 094 | + +------+--------+ +--------+--------+--------+ | Implant Duragen Suturable 1 X | | N/A: | INTEGRA | | 11/30/ | [id number] | | 3 - [id number]: Qty: | | Spine | LIFESCIENCE | | 2014 | 91 / | | 1 on 09/02/2013 by Preston, | | | S | | | /[id number] | | MD Crow | | | | | | 12 | + +------+--------+ +--------+--------+--------+ | Tisseel Frozen 10ml - | | N/A: | KEITA | | 01/30/ | 806150 | | [id number]: Qty: 1 on | | Spine | [...] | + + + | [address] | [facility] | | [place] [address] [facility] | | [phone] | RADIOLOGY | | Name: ROLAND RICARDO Phys: BILLY AGUSTIN | | | : 1990 Sex: M CSN: | | | [id number] MR# [id number] Exam Date: | | | 07/27/2018 EXAM: X-RAY SPINE CERVICAL 4 VIEWS 96106 | | | CLINICAL HISTORY: Neck pain. [...] Transcribed Date/Time: 07/28/2018 13:18 | | | Printed Circuit Boards Laminator: FLUENCY | | + + + + + | Procedure Note | + + | Interface, Radiology Results - 07/28/2018 1:23 PM PST [address] | | [address] [place] [address] | | Name: SILVIA RICARDOE Phys: BILLY AGUSTIN : 1990 Sex: M | | CSN: [id number] MR# [id number] Exam Date: 07/27/2018 EXAM:X-RAY SPINE CERVICAL 4 | | VIEWS 43765 CLINICAL HISTORY:Neck pain. COMPARISON:None available. TECHNIQUE:AP, | [...] | | |Transcribed Date/Time: 07/28/2018 13:18 | |Printed Circuit Boards Laminator: [place] | | | | | | | + + + +---------+ + + | Performing | Address | City/State[facility] | Phone Number | | Organization | [...] | + +--------+ +--------+ + + | PYROMETER TEMPERATURE REGULATOR MEDICAID | PYROMETER TEMPERATURE REGULATOR | xxxxxxxx | Medica | | | | | [place] | | id | | | | | N [place] | | | | | + +--------+ +--------+ + + | MEDICAID [place] | OHP | xxxxxxxx | Medica | [phone] | [address] [address] | | | PLUS | | id | [phone] | [place] [address] | | | OPEN | | | [...] | Self | [birth year] | 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1990 | +- | [place] [address] | | | roya | | | [address] Home: | | | | | | | | | | | | | | [phone] | | | | | | | 2636 | | + +--------+ +--------+ + + | ROLAND RICARDO | Person | 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
--- OUTSIDE RECORDS SUMMARY | ~2018-10-12 | XMS | Encounter Summary ---
Demographics + + + | Address | [address] | | | [place] [address] | + + + | Home Phone | | + + + | Preferred Language | Unknown | + + + | Marital Status | Single | + + + | Advent Affiliation | MET | + + + | Race | White | + + + | Ethnic Group | Not or | + + + Author + + + | Author | [facility] | + + + | Organization | [facility] | + + + | Address | Unknown | + + + | Phone | Unavailable | + + + Care Team Providers + +------+ + | Care Endocrinologist Name | Role | Phone | + [...] | [place] | | | | | ([facility]) | Bella [place] | [place], [place] | | | | | Procedures | [place], [place] | [address] | | | | | CONSULT TO | [address] | Phone: | | | | | NEUROSURGERY | Phone: | [phone] | | | | | | [phone] | Fax: | | | | | | Fax: | [phone] | | | | | | [phone] | | + +--------+ + + + + Encounter Details +--------+ + + + + | Date | Type | Department | Care Team | Description | +--------+ + + + + | 08/02/ | Documentati | Orthopaedics at | Billy Agustin, | | | 2019 | on | [facility] [address] | [address] | | | | | [place] Mailcode: CH12A | [facility]el Blanco | | | | | [facility] | [place], [place] | | | | | and [place], | [address] | | | | | Floor [place], [place] | [phone] | | | | | [address] | | | | | | [phone] | | | +--------+ + + + [...] [address] | | | | | | [place], [place] | | | | | | [address] | | | | | | [phone] | | | | | | | | +--------+---------+ + + + as of this encounter Visit Diagnoses + + | Diagnosis | + + | Cerebral palsy, quadriplegic (HCC) - Primary | + + | Congenital quadriplegia | + +"
--- OUTSIDE RECORDS SUMMARY | ~2018-10-12 | XMS | Clinical Summary ---
Demographics + + + | Address | [address] | | | [place] [address] | + + + | Home Phone | | + + + | Preferred Language | Unknown | + + + | Marital Status | Single | + + + | Episcopal Affiliation | Unknown | + + + | Race | Unknown | + + + | Ethnic Group | Unknown | + + + Author + + + | Author | [facility] | + + + | Organization | [facility] | + + + | Address | Unknown | + + + | Phone | Unavailable | + + + Support + + + + + | Name | Relationship | Address | Phone | + + + + + | Olga Hernandez | ECON | [address] | | | | | [place] | | | | | [address] | | + + + + + Care Team Providers + +------+ + | Care Medtronics Technician Name | Role | Phone | + +------+ + | Augusto Karimi MD | PP | | + +------+ + Allergies + + + + + + | Active Allergy | Reactions | Severity | Noted | Comments | | | | | Date | | + + + + + + | Cefepime | Itching | Medium | 03/05/20 | Injection site | | | | | 18 | itching and some | | | | | | throat itching | | | | | | Patient tolerated | | | | | | Augmentin in 10/2017 | + + + + + + | Morphine | Hives | High | 03/22/20 | | | | | | 13 | | + + + + + + Current Medications + + +-------+---------+------+------+-------+ | Prescription | Sig. | Disp. | Refills | Star | End | Statu | | | | | | t | Date | s | | | | | | Date | | | + + +-------+---------+------+------+-------+ | sucralfate | 1 g by Gastrostomy | | | | | Activ | | (CARAFATE) 1 GM/10ML | Tube route See Admin | | | | | e | | suspension | Instructions. 6 AM | | | | | | | | and 4 PM | | | | | | + + +-------+---------+------+------+-------+ | esomeprazole | 40 mg by Per J Tube | | | | | Activ | | (NEXIUM) 40 MG | route every morning | | | | | e | | packet | before breakfast. | | | | | | + + +-------+---------+------+------+-------+ | Probiotic Product | by Per G Tube route | | | | | Activ | | (PROBIOTIC PO) | 2 (two) times daily. | | | | | e | + + +-------+---------+------+------+-------+ | baclofen | Take by mouth 3 | | | | | Activ | | (LIORESAL) 10 mg | (three) times daily. | | | | | e | | tablet | 30 mg in morning | | | | | | | | and 2 PM20 mg in | | | | | | | | evening | | | | | | + + +-------+---------+------+------+-------+ | tizanidine | Take 8 mg by mouth | | | | | Activ | | (ZANAFLEX) 4 MG | every evening. | | | | | e | | capsule | | | | | | | + + +-------+---------+------+------+-------+ | pediatric | Take 5 mLs by mouth | | | | | Activ | | multivitamin | daily. | | | | | e | | (POLY--CHERELLE) 35 | | | | | | | | MG/ML solution | | | | | | | + + +-------+---------+------+------+-------+ | ferrous sulfate | Take 37.5 mg by | | | | | Activ | | (SABINA-IN-CHERELLE) 75 (15 | mouth daily with | | | | | e | | Fe) MG/ML SOLN drops | breakfast. | | | | | | + + +-------+---------+------+------+-------+ | cetirizine | Take 10 mg by mouth | | | | | Activ | | (ZYRTEC) 1 mg/mL | daily. | | | | | e | | liquid | | | | | | | + + +-------+---------+------+------+-------+ | magnesium oxide | Take 400 mg by mouth | | | | | Activ | | (MAG-OX) 400 MG | 2 (two) times | | | | | e | | tablet | daily. | | | | | | + + +-------+---------+------+------+-------+ Active Problems + + + | Problem | Noted Date | + + + | Cerebral palsy (HCC) | 03/05/2018 | + + + | History of implantation of prosthetic device of extremity | | + + + Resolved Problems + + + + | Problem | Noted | Resolved | | | Date | Date | + + + + | Sepsis (HCC) | 03/05/20 | | | | 18 | 8 | + + + + | Hypokalemia | 03/05/20 | | | | 18 | 8 | + + + + | Hypernatremia | 03/05/20 | | | | 18 | 8 | + + + + | Abdominal pain | 03/05/20 | | | | 18 | 8 | + + + + Social History [...] + + + | Blood Pressure | 121/64 | 03/08/2018 8:15 AM PDT | + + + + | Pulse | 80 | 03/08/2018 8:15 AM PDT | + + + + | Temperature | 36.7 C (98.1 F) | 03/08/2018 8:15 AM PDT | + + + + | Respiratory Rate | 12 | 03/08/2018 8:15 AM PDT | + + + + | Oxygen Saturation | 91% | 03/08/2018 8:15 AM PDT | + + + + | Inhaled Oxygen | - | - | | Concentration | | | + + + + | Weight | 46.9 kg (103 lb 6.4 | 03/08/2018 2:54 AM PDT | | | oz) | | + + + + | Height | 152.4 cm (5') | 03/05/2018 10:16 PM PDT | + + + + | Body Mass Index | 20.19 | 03/08/2018 2:54 AM PDT | + + + + Plan of Treatment Not on file Results Not on filefrom Last 3 Months Insurance + +--------+ +------+-------+ + | Payer | Benefi | Subscriber | Type | Phone | Address | | | t Plan | ID | | | | | | / | | | | | | | Group | | | | | + +--------+ +------+-------+ + | MEDICAID | [place] | [id number] | | | [address] | | | N | | | | [place] | | | [place] | | | | [address] | | | STORE COORDINATOR | | | | | + +--------+ +------+-------+ + + +--------+ +--------+ + + | Guarantor Name | Accoun | Relation to | Date | Phone | Billing Address | | | t Type | Patient | of | | | | | | | | | | + +--------+ +--------+ + + | VINOD HERNANDEZ | Person | Self | [birth year] | Home: | [address] | | | al/Fam | | 1990 | [phone] | [place] | | | roya | | | [phone] | [address] | + +--------+ +--------+ + +"
--- OUTSIDE RECORDS SUMMARY | ~2018-10-12 | XMS | Clinical Summary ---
Demographics + + + | Address | [address] [place] [address] RD | | | [place] [address] | + + + | Home Phone | | + + + | Preferred Language | Unknown | + + + | Marital Status | Single | + + + | Orthodox Affiliation | MET | + + + [...] Team Providers + +------+ + | Care Account Resolution Specialist Name | Role | Phone | + +------+ + | Augusto Karimi MD | PP | | + +------+ + Source Comments LINDABECK is fully live on both EpicCare Ambulatory and EpicCare InPatient.[facility] Allergies + [...] | Activ | | Magnesium (NEXIUM | tube-rodent exterminator | | | | | e | [...] | | | | Activ | | fygwsdofrlyz-byfn-dt | once daily. | | | | [...] | + + + | Seizure disorder ([facility]) | 09/12/2010 | + + + | Feeding by G-tube ([facility]) | 09/12/2010 | + + + [...] | | + + + + | Loqsodixu-[id number], | 06/04/2009 | | | injectable | [...] | | 2019 | Visit | | [address] | | | | | | [place], [place] | | | | | | [address] | | | | | | [phone] | | | | | | | [...] | Ii 40ml - | | | [facility] | | 2013 | 0 | | [id number]: Qty: 1 | | Abdome | | [...] | | | | | | | [address] | + +------+--------+ +--------+--------+--------+ | Tisseel Vh Sd 4ml (Fibrin | | N/A: | KEITA | | 03/02/ | [id number] | | Glue) Dehp - | | Spine | HEALTHCARE | | 2014 | 7 | | [id number]: Qty: | | | | | | /[id number] | | 1 on 07/24/2013 by Preston, | | | | | | [id number] | | MD Crow | | | | | | 7 | | | | | | | | /[id number] | | | | | | | | 094 | + +------+--------+ +--------+--------+--------+ | Implant Duragen Suturable 1 X | | N/A: | INTEGRA | | 11/30/ | [id number] | | 3 - [id number]: Qty: | | Spine | LIFESCIENCE | | 2014 | 91 / | | 1 on 09/02/2013 by Preston, | | | S | | | /[id number] | | MD Crow | | | | | | 12 | + +------+--------+ +--------+--------+--------+ | Tisseel Frozen 10ml - | | N/A: | KEITA | | 01/30/ | [id number] | | [id number]: Qty: 1 on | | Spine | [...] | + + + | [address] | [facility] | | [place] [address] [facility] | | [phone] | RADIOLOGY | | Name: ROLAND RICARDO Phys: BILLY AGUSTIN | | | : 1990 Sex: M CSN: | | | [id number] MR# [id number] Exam Date: | | | 07/27/2018 EXAM: X-RAY SPINE CERVICAL 4 VIEWS [id number] | | | CLINICAL HISTORY: Neck pain. [...] Transcribed Date/Time: 07/28/2018 13:18 | | | Metal Sorter: FLUENCY | | + + + + + | Procedure Note | + + | Interface, Radiology Results - 07/28/2018 1:23 PM PST [address] | | [address] [place] [address] | | Name: SILVIA RICARDOE Phys: BILLY AGUSTIN : 1990 Sex: M | | CSN: [id number] MR# [id number] Exam Date: 07/27/2018 EXAM:X-RAY SPINE CERVICAL 4 | | VIEWS 03594 CLINICAL HISTORY:Neck pain. COMPARISON:None available. 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: | [address] | | | al/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 | | 1990 | +- | [place] [address] | | | roya | | | [address] Home: | | | | | | | | | | | | | [phone] | | | | | | | 2636 | | + +--------+ +--------+ + + | ROLAND RICARDO | Person | Self | [birth year] | 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
--- OUTSIDE RECORDS SUMMARY | ~2018-10-12 | XMS | Encounter Summary ---
Demographics + + + | Address | [address] | | | [place] [address] | + + + | Home Phone | | + + + | Preferred Language | Unknown | + + + | Marital Status | Single | + + + | Uatsdin Affiliation | MET | + + + | Race | White | + + + | Ethnic Group | Not or | + + + Author + + + | Author | [facility] | + + + | Organization | [facility] | + + + | Address | Unknown | + + + | Phone | Unavailable | + + + Care Team Providers + +------+ + | Care Endorsement Clerk Name | Role | Phone | + +------+ + | Augusto Karimi MD | PCP | | + +------+ + Encounter Details +--------+ + + + + | Date | Type | Department | Care Team | Description | +--------+ + + + + | 07/27/ | Hospital | [facility] | | | | 2018 | Encounter | Sports Medicine & | | | | | | Orthopaedic Surgery | | | | | | [address] | | | | | | [place], [place] | | | | | | [address] | | | | | | [phone] | | | +--------+ + + + [...] + + + as of this encounter Medications at Time of Discharge + + +---------+---------+ + + | Medication | Sig. | Disp. | Refills | Start | End Date | | | | | | Date | | + + +---------+---------+ + + | acetaminophen 500 | Take 500 mg by mouth | | | | | | mg oral tablet | every four hours as | | | | | | | needed (through G | | | | | | | tube). | | | | | + + +---------+---------+ + + | ALLERGY | | | 0 | /18/20 | | | RELIEF,DIPHENHYDRAMI | | | | 16 | | | N, 12.5 mg/5 mL oral | | | | | | | liquid | | | | | | + + +---------+---------+ + + | amoxicillin 250 | | | 0 | /18/20 | | | mg/5 mL oral | | | | 16 | | | suspension for | | | | | | | reconstitution | | | | | | + + +---------+---------+ + + | baclofen 20 mg | Take 20 mg by mouth | | | | | | oral tablet | three times daily. | | | | | + + +---------+---------+ + + | Cetirizine 5 mg/5 | Take by mouth once | | | | | | mL oral solution | daily. | | | | | + + +---------+---------+ + + | Esomeprazole | 40 mg by Jejunostomy | | | | | | Magnesium (NEXIUM | tube-termite renewal inspector | | | | | | PACKET) 40 mg Oral | route two times | | | | | | Granules DR for susp | daily. Indications: | | | | | | in | GASTROESOPHAGEAL | | | | | | PacketIndications: | REFLUX | | | | | | gastroesophageal | | | | | | | reflux disease | | | | | | + + +---------+---------+ + + | geriatric iron-vit | Take by mouth once | | | | | | B complex oral | daily. | | | | | | liquid | | | | | | + + +---------+---------+ + + | LACTOBACILLUS | by Per G Tube route. | | | | | | ACIDOPHILUS | | | | | | | (PROBIOTIC ORAL) | | | | | | + + +---------+---------+ + + | LAXATIVE, | | | 0 | /18/20 | | | BISACODYL, 10 mg | | | | 16 | | | rectal suppository | | | | | | + + +---------+---------+ + + | lidocaine viscous | | | 0 | /20/20 | | | 2 % mucous membrane | | | | 16 | | | solution | | | | | | + + +---------+---------+ + + | MEDICAL MARIJUANA | four times daily. | | | | | + + +---------+---------+ + + | | Take 15 mL by mouth | | | | | | xzrrywohsugz-fgsb-mo | once daily. | | | | | | nerals 9 mg iron/15 | | | | | | | mL oral liquid | | | | | | + + +---------+---------+ + + | ondansetron 4 mg/5 | Take 5 mL by mouth | 50 mL | 1 | 11/12/19 | | | mL Oral Solution | every eight hours as | | | 12 | | | | needed for | | | | | | | nausea/vomiting. | | | | | + + +---------+---------+ + + | PHENADOZ 25 mg | | | 0 | 07/20/19 | | | rectal suppository | | | | 16 | | + + +---------+---------+ + + | POLOXAMER (ORAL | Use as directed | | | 03/16/20 | | | HYGIENE PRODUCTS DT) | | | | 12 | | + + +---------+---------+ + + | SENNA 8.6 mg oral | | | 0 | 07/20/19 | | | tablet | | | | 16 | | + + +---------+---------+ + + | sucralfate 1 gram | 1 g by Gastric tube | | | | | | Oral | route two times | | | | | | tabletIndications: | daily. Indications: | | | | | | gastroesophageal | GASTROESOPHAGEAL | | | | | | reflux disease | REFLUX | | | | | + + +---------+---------+ + + | tiZANidine 4 mg | | | | 07/26/19 | | | oral tablet | | | | 19 | | + + +---------+---------+ + + | | 1 tablet by feeding | 20 | 0 | 05/22/20 | | | trimethoprim-sulfame | tube route two times | tablet | | 15 | | | thoxazole 160-800 mg | daily. | | | | | | oral tablet | | | | | | + + +---------+---------+ + + as of this encounter Plan of Treatment +--------+---------+ + + + | Date | Type | Specialty | Care Team | Description | +--------+---------+ + + + | 10/25/ | Office | Neurological Surgery | Teodoro Slaughter, | | | 2018 | Visit | | [address] | | | | | | [place], [place] | | | | | | [address] | | | | | | [phone] | | | | | | | | +--------+---------+ + + + as of this encounter Visit Diagnoses Not on filein this encounter"
--- OUTSIDE RECORDS SUMMARY | ~2018-10-12 | XMS | Encounter Summary ---
Demographics + + + | Address | [address] | | | [place] [address] | + + + | Home Phone | | + + + | Preferred Language | Unknown | + + + | Marital Status | Single | + + + | Amish Affiliation | MET | + + + | Race | White | + + + | Ethnic Group | Not or | + + + Author + + + | Author | [facility] | + + + | Organization | [facility] | + + + | Address | Unknown | + + + | Phone | Unavailable | + + + Care Team Providers + +------+ + | Care Strainer Tender Name | Role | Phone | + [...] | Cerebral | Billy Perez MD | [facility] [address] | | | | | palsy, | [address] | [address] | | | | | unspecified | [place]el | Mail Code: | | | | | type (HCC) | [place] | [facility] | | | | | Procedures | [place], [place] | for Health | | | | | CONSULT TO | [address] | and [place], | | | | | NEUROLOGY | Phone: | 8th floor | | | | | | [phone] | [place], [place] | | | | | | Fax: | [address] | | | | | | [phone] | Phone: | | | | | | | [phone] | | | | | | | Fax: | | | | | | | [phone] | +--------+--------+ + + + + Reason [...] | | | [address] | [place], [place] | ([facility]) | | | | [place], [place] | [address] | | | | | [address] | [phone] | | | | | [phone] | | | +--------+---------+ + + + [...] 07/27/2018 11:30 AM PSTRef[facility] Progress Notes Billy Agustin MD [...] and suggested Dr. Slaughter or Tamar at [facility] Neurosurgery for t his discussion. They would like to pursue this and a referral was placed today. in this enco unter Plan of Treatment +--------+---------+ + + + | Date | Type | Specialty | Care Team | Description | +--------+---------+ + + + | 10/25/ | Office | Neurological Surgery | Teodoro Slaugther, | | | 2018 | Visit | | [address] | | | | | | [place], [place] | | | | | | [address] | | | | | | [phone] | | | | | | | [...] | + + + | [address] [place] [address] | [facility] | | [place] [address] | DEPARTMENT OF | | [phone] | RADIOLOGY | | Name: ROLAND RICARDO Phys: BILLY AGUSTIN | | | : 1990 Sex: M CSN: | | | [id number] MR# [id number] Exam Date: | | | 07/27/2018 EXAM: X-RAY SPINE CERVICAL 4 VIEWS 36309 | | | CLINICAL HISTORY: Neck pain. [...] Transcribed Date/Time: 07/28/2018 13:18 | | | Dewatering Filtering Supervisor: FLUENCY | | + + + + + | Procedure Note | + + | Interface, Radiology Results - 07/28/2018 1:23 PM PST [address] | | [place] [address] | | Name: ROLAND RICARDO Phys: BILLY AGUSTIN : 1990 Sex: M | | CSN: [id number] MR# [id number] Exam Date: 07/27/2018 EXAM:X-RAY SPINE CERVICAL 4 | | VIEWS 48519 CLINICAL HISTORY:Neck pain. COMPARISON:None available. TECHNIQUE:AP, | [...] | | |Transcribed Date/Time: 07/28/2018 13:18 | |Dewatering Filtering Supervisor: FLUENCY | | | | | | [...]
--- OUTSIDE RECORDS SUMMARY | ~2018-10-12 | XMS | Encounter Summary ---
Demographics + + + | Address | [address] | | | [place] [address] | + + + | Home Phone | | + + + | Preferred Language | Unknown | + + + | Marital Status | Single | + + + | Muslim Affiliation | MET | + + + | Race | White | + + + | Ethnic Group | Not or | + + + Author + + + | Author | [facility] | + + + | Organization | [facility] | + + + | Address | Unknown | + + + | Phone | Unavailable | + + + Care Team Providers + +------+ + | Care Cotton Inspector Name | Role | Phone | + +------+ + | Augusto Karimi MD | PCP | | + +------+ + Encounter Details +--------+ + + + + | Date | Type | Department | Care Team | Description | +--------+ + + + + | 07/27/ | Hospital | [facility] | | | | 2018 | Encounter | Sports Medicine & | | | | | | Orthopaedic Surgery | | | | | | [address] | | | | | | [place], [place] | | | | | | [address] | | | | | | [phone] | | | +--------+ + + + [...] | | | | Magnesium (NEXIUM | tube-meterman | | | | | | PACKET) [...] mouth | | | | | | sawtiljpwsti-chqa-ge | once daily. | | | | [...] | | 2018 | Visit | | [address] | | | | | | [place], [place] | | | | | | [address] | | | | | | [phone] | | | | | | | | +--------+---------+ + + + as of this encounter Visit Diagnoses Not on filein this encounter"
--- OUTSIDE RECORDS SUMMARY | ~2018-10-12 | XMS | Encounter Summary ---
Demographics + + + | Address | [address] | | | [place] [address] | + + + | Home Phone | | + + + | Preferred Language | Unknown | + + + | Marital Status | Single | + + + | Sabianist Affiliation | MET | + + + | Race | White | + + + | Ethnic Group | Not or | + + + Author + + + | Author | [facility] | + + + | Organization | [facility] | + + + | Address | Unknown | + + + | Phone | Unavailable | + + + Care Team Providers + +------+ + | Care Garnett Machine Operator Helper Name | Role | Phone | + [...] | [place] | | | | | ([facility]) | [place] | [place], [place] | | | | | Procedures | [place], [place] | [address] | | | | | CONSULT TO | [address] | Phone: | | | | | NEUROSURGERY | Phone: | [phone] | | | | | | [phone] | Fax: | | | | | | Fax: | [phone] | | | | | | [phone] | | + +--------+ + + + + Encounter Details +--------+ + + + + | Date | Type | Department | Care Team | Description | +--------+ + + + + | 08/02/ | Documentati | Orthopaedics at | Billy Agustin, | | | 2019 | on | [facility] [address] | [address] | | | | | [place] Mailcode: CH12A | [place] | | | | | [facility] | [place], [place] | | | | | and [place], | [address] | | | | | Floor [place], [place] | [phone] | | | | | [address] | | | | | | [phone] | | | +--------+ + + + [...] [address] | | | | | | [place], [place] | | | | | | [address] | | | | | | [phone] | | | | | | | | +--------+---------+ + + + as of this encounter Visit Diagnoses + + | Diagnosis | + + | Cerebral palsy, quadriplegic (HCC) - Primary | + + | Congenital quadriplegia | + +"
--- OUTSIDE RECORDS SUMMARY | ~2018-10-12 | XMS | Encounter Summary ---
Demographics + + + | Address | [address] | | | [place] [address] | + + + | Home Phone | | + + + | Preferred Language | Unknown | + + + | Marital Status | Single | + + + | Hoahaoism Affiliation | MET | + + + [...] Team Providers + +------+ + | Care Jd Edwards Consultant Name | Role | Phone | + +------+ + | Augusto Karimi MD | PCP | | + +------+ + Encounter Details +--------+ + + + + | Date | Type | Department | Care Team | Description | +--------+ + + + + | 07/27/ | Hospital | [facility] | | | | 2018 | Encounter | Sports Medicine & | | | | | | Orthopaedic Surgery | | | | | | [address] | | | | | | [place], [place] | | | | | | [address] | | | | | | [phone] | | | +--------+ + + + [...] | | | | Magnesium (NEXIUM | tube-keno terminal operator | | | | | | PACKET) [...] mouth | | | | | | wvjtafpqurrw-lkas-fe | once daily. | | | | [...] | | 2018 | Visit | | [address] | | | | | | [place], [place] | | | | | | [address] | | | | | | [phone] | | | | | | | | +--------+---------+ + + + as of this encounter Visit Diagnoses Not on filein this encounter"
--- OUTSIDE RECORDS SUMMARY | ~2018-10-12 | XMS | Clinical Summary ---
Demographics + + + | Address | [address] | | | [place] [address] | + + + | Home Phone | | + + + | Preferred Language | Unknown | + + + | Marital Status | Single | + + + | Sabianism Affiliation | Unknown | + + + | Race | Unknown | + + + | Ethnic Group | Unknown | + + + Author + + + | Author | [facility] | + + + | Organization | [facility] | + + + | Address | Unknown | + + + | Phone | Unavailable | + + + Support + + + + + | Name | Relationship | Address | Phone | + + + + + | Olga Hernandez | ECON | [address] | | | | | [place] | | | | | [address] | | + + + + + Care Team Providers + +------+ + | Care Vegetable Vendor Name | Role | Phone | + [...] +------+-------+ + | MEDICA[employer] | [facility] | [id number] | | | [address] | | | N | | | | [place] | | | [place] | | | | [phone] | | | [employer] | | | | | + +--------+ [...] | Self | [birth year] | Home: | [address] | | | al/Fam | | 1990 | [phone] [place] | | | roya | | | [phone] | + +--------+ +--------+ + +"
--- OUTSIDE RECORDS SUMMARY | ~2018-10-12 | XMS | Clinical Summary ---
Demographics + + + | Address | [address] | | | [place] [address] | + + + | Home Phone | | + + + | Preferred Language | Unknown | + + + | Marital Status | Single | + + + | Temple Affiliation | 1073 | + + + | Race | Unknown | + + + | Ethnic Group | Unknown | + + + Author + + + | Author | [facility] | | | and Laciana | + + + | Organization | [facility] | | | and Laciana [...] Team Providers + +------+ + | Care Reptile Farmer Name | Role | Phone | + [...] | [employer] | [facility] | [id number] | | [phone] | | [employer] | [...] Person | Self | [birth year] | [address] | | | al/Fam | | 1991 | [phone] | [place] [address] | | | roya | | | [phone] (Home) | | + +--------+ +--------+ + + Advance Directives Patient has advance care planning documents, and code status on file. For more information, please contact:[facility] [place] [address] + + + + + | Code Status | Date | Date | Comments | | | Activated | Inactivated | | + + + + + | Full Code | 2015 | 09/20/2015 | | | | 2:10 | 16:07 | | + + + + +
--- OUTSIDE RECORDS SUMMARY | ~2018-10-12 | XMS | Clinical Summary ---
Demographics + + + | Address | [address] | | | [place] [address] | + + + | Home Phone | | + + + | Preferred Language | Unknown | + + + | Marital Status | Single | + + + | Church Affiliation | Unknown | + + + | Race | Unknown | + + + | Ethnic Group | Unknown | + + + Author + + + | Author | [facility] [employer] [facility] | + + + | Organization | [facility] [employer] [facility] | + + + | Address | Unknown | + + + | Phone | Unavailable | + + + Support + + + + + | Name | Relationship | Address | Phone | + + + + + | Olga Hernandez | ECON | [address] | | | | | [place] | | | | | [address] | | + + + + + Care Team Providers + +------+ + | 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
--- OUTSIDE RECORDS SUMMARY | ~2018-10-12 | XMS | Encounter Summary ---
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[address] | | | | | palsy, | [address] | [address] | | | | | unspecified | Miguel Ángel | Mail Code: | | | | | type (HCC) | [facility] | [facility] | | | | | Procedures | [place], [place] | for Health | | | | | CONSULT TO | [phone] | and Edgar, | | | | | NEUROLOGY | Phone: | 8th floor | | | | | | [phone] | [place], [place] | | | | | | Fax: | [address] | | | | | | [phone] | Phone: | | | | | | | [phone] | | | | | | | Fax: | | | | | | | [phone] | +--------+--------+ + + + + Reason [...] | | | [address] | [place], [place] | ([facility]) | | | | [place], [place] | [address] | | | | | [address] | [phone] | | | | | [phone] | | | +--------+---------+ + + + [...] 07/27/2018 11:30 AM PSTReferral [facility] neurolog[facility] Progress Notes Billy Agustin [...] and suggested Dr. Slaughter or Tamar at [facility] Neurosurgery for t his discussion. [...] [address] | | | | | | [place], [place] | | | | | | [address] | | | | | | [phone] | | | | | | | [...] | + + + | [address] [place] [address] | [facility] | | [place] [address] | DEPARTMENT OF | | [phone] | RADIOLOGY | | Name: ROLAND RICARDO Phys: BILLY AGUSTIN | | | : 1990 Sex: M CSN: | | | [id number] MR# [id number] Exam Date: | | | 07/27/2018 EXAM: X-RAY SPINE CERVICAL 4 VIEWS [id number] | | | CLINICAL HISTORY: Neck pain. [...] Transcribed Date/Time: 07/28/2018 13:18 | | | Storage Receipt Poster: FLUENCY | | + + + + + | Procedure Note | + + | Interface, Radiology Results - 07/28/2018 1:23 PM PST [address] | [place] [address] | | Name: ROLAND RICARDO Phys: BILLY AGUSTIN : 1990 Sex: M | | CSN: [id number] MR# [id number] Exam Date: 07/27/2018 EXAM:X-RAY SPINE CERVICAL 4 | | VIEWS [id number] CLINICAL HISTORY:Neck pain. COMPARISON:None available. TECHNIQUE:AP, | [...] | | |Transcribed Date/Time: 07/28/2018 13:18 | |Storage Receipt Poster: FLUENCY | | | | | | [...]
[~2018-10-12 07:27] MED LIST changes: +ACETAMINOP500 MG/15 PT; +BACLOFEN20 MG PT; +BELLADONNA-OPIU30 MG PR; +CHLORASEPTIC177 M1 MM; +CITALOPRAM20 MG/10 M GT; +DESITIN57 GM TOP; +DOXYCYCLINE HY100 MG PO; +MAGNESIUM OXID400 M1 PT; +[UNRECOGNIZED DRUG - REMARK] GT
--- OUTSIDE RECORDS SUMMARY | 2018-10-12 07:30 | XMS ---
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 Clementina VISIT COUNT (12 MO.) 1 [facility] 3 [facility] TOTAL 4 NOTE: Visits indicate total known visits. 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 - Sepsis, unspecified organism - Pain, unspecified - Allergy status to other antibiotic agents status - Allergy status to narcotic agent status INPATIENT VISIT TRACKING (12 MO.) 09/04/2018 19:00 [facility] [place] TYPE: Medical Surgical COMPLAINT: - UTI/SEPSIS DIAGNOSES: - Full incontinence of feces - Allergy status to narcotic agent status - Neuromuscular dysfunction of bladder, unspecified - Sepsis, unspecified organism - Severe sepsis without septic shock - Other retirement (current) drug therapy - Sepsis due to Methicillin susceptible Staphylococcus aureus - Unspecified urinary incontinence - Urinary tract infection, site not specified - Other specified disorders of bladder - Dysphagia, oropharyngeal phase - Metabolic encephalopathy - Epilepsy, unspecified, not intractable, without status epilepticus - Gastro-esophageal reflux disease without esophagitis - Hyperosmolality and hypernatremia - Allergy status to other antibiotic agents status - 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
[2018-10-12] MEDS ORDERED: CIPRO500 MG PT (07:56)
--- NOTE | 2018-10-12 12:35 | NUR ---
PT ARRIVES TO THE UNIT AT THIS TIME VIA STRETCHER; ARRIVES CALM, WITH PIV IN RIGHT HAND, ON 2 L/MIN O2 VIA NC. PT ARRIVES WITH HIS CAREGIVER AT THE BEDSIDE. PT ALSO ARRIVES WITH CHRONIC GTUBE IN PLACE IN LEFT ABDOMEN.
--- NOTE | 2018-10-12 13:05 | NUR ---
THIS RN WENT TO FLUSH CRUSHED MEDICATIONS- WENT HOOKED GTUBE TO 60 ML FLUSH AND PULLED BACK FOR ANY RESIDUAL, I IMMEDIATELY GOT BACK A THIN DARK BROWN LIQUID. HOLDING OFF ON ADMINISTERING MEDS- WILL NOTIFY DR. MURPHY.
--- NOTE | 2018-10-12 13:12 | NUR ---
RN NOTIFIED DR. MURPHY FACE TO FACE AND SHOWED HER THE SPECIMEN CUP WITH BROWN LIQUID- PER DR. MURPHY, HOOK PT'S TUBE TO SPRAGUE BAG TO GRAVITY AT THIS TIME.
--- NOTE | 2018-10-12 13:17 | NUR ---
GTUBE HOOKED UP TO SPRAGUE BAG TO GRAVITY- DARK BROWN DRAINAGE DRAINING
--- NOTE | 2018-10-12 13:53 | NUR ---
ENEMA HAS BEEN GIVEN. GIVEN WITHOUT ISSUES- LARGE INCONTINENT EPISODE NOTED IN PT'S BRIEF- PT CLEANED AND NEW ONE APPLIED. WILL LET ENEMA SIT AND REASSESS SHORTLY.
--- NOTE | 2018-10-12 14:12 | NUR ---
PT'S DRAINAGE HAS DECREASED FROM HIS GTUBE TO GRAVITY SO MEDS CRUSHED AND GIVEN THROUGH GTUBE WITHOUT COMPLICATION AT THIS TIME. TUBING CLAMPED.
--- NOTE | 2018-10-12 16:00 | NUR ---
PT'S TEMP HAS INCREASED TO 103.1- PT REMAINS VERY AGITATED, MOANING. OVER AN HOUR OF GTUBE CLAMPED- UNCLAMPED AND PLACED BACK TO GRAVITY AT THIS TIME; DARK BROWN DRAINAGE CONTINUES. MOM AT THE BEDSIDE AT THIS TIME. DR. MURPHY HAS JUST BEEN TO THE BEDSIDE TO UPDATE PT'S MOM. ASSESSMENT COMPLETED AGAIN. CALL LIGHT WITHIN REACH. WILL CONTINUE TO MONITOR.
[2018-10-12] MEDS ORDERED: LORAZEPAM2 MG/1 M2 PO (16:04)
--- NOTE | 2018-10-12 16:10 | NUR ---
PT CONTIOUES TO MARIANO AND ASTER LOUDLY. MEDICATED WITH 1MG DILIADID 1MG IVP.
--- NOTE | 2018-10-12 16:50 | NUR ---
NOTIFIED DR. MURPHY OF PT'S INCREASED TEMP AND OVERALL PT CONDITION OF RESTLESSNESS, NO RELIEF FROM ENEMA
--- NOTE | 2018-10-12 16:55 | NUR ---
MED REC COMPLETE
--- NOTE | 2018-10-12 17:04 | NUR ---
BLADDER SCAN TO VERIFY NO RETENTION PER DR. MURPHY- 25 CC NOTED IN BLADDER- DR. MURPHY NOTIFIED
--- NOTE | 2018-10-12 18:00 | NUR ---
PT STILL VERY RESTLESS, EMOTIONAL SUPPORT GIVEN. PT'S MOM DOESN'T WANT TO DO PRN PAIN MEDICATION. REPOSITIONED.
--- NOTE | 2018-10-12 18:30 | NUR ---
PT HAS FALLEN ASLEEP ON HIS LEFT SIDE- APPEARS COMFORTABLE WITH NO S/S OF PAIN OR DISCOMFORT. CALL LIGHT WITHIN REACH. FALL PRECAUTIONS, ASPIRATION PRECAUTIONS AND SEIZURE PRECAUTIONS IN PLACE. MOTHER AT BEDSIDE. WILL CONTINUE TO MONITOR.
--- NOTE | 2018-10-12 19:41 | NUR ---
REPORT RC'D FROM DAY SHIFT NURSE JARETH. PT RESTING WITH EYES CLOSED, NO ACUTE DISTRESS NOTED, PT'S MOTHER AT BEDSIDE.
--- NOTE | 2018-10-12 20:30 | NUR ---
PT RESTING IN BED, NO ACUTE DISTRESS, MOTHER AT BEDSIDE. TEMP NOTED TO BE 101.4 F, TYLENOL TO BE GIVEN. SINUS TACH NOTED ON MONITOR. BUL CLEAR, BLL COARSE, 2L NC. HYPERACTIVE BOWEL TONE X4, DUE FOR BM, BROWN DRAINAGE FROM GTUBE NOTED. PT REPOSITIONED, AWAKENS EASILY, MOANS LOUDLY BUT REASSUSRED EASILY. NS INFUSING AT 125 ML/HR. DISSCUSSED PLAN WITH PT'S MOTHER AND AGREEABLE.
--- NOTE | 2018-10-12 21:30 | NUR ---
MEDICATIONS ADMINISTERED VIA GTUBE, TUBE CLAMPED AT THIS TIME. PT RESTING WITH EYES CLOSED, NO ACUTE DISTRESS NOTED.
--- NOTE | 2018-10-12 23:26 | NUR ---
PT ASSISTED TO BSC VIA CLOIN LIFT, TOLERATED WELL. PT'S MOTHER AT BEDSIDE TO PLAY MUSIC AND ASSIST WTIH BM. LINEN CHANGE. TEMP REASSESSED AND NOTED TO BE 99.2 F.
--- NOTE | 2018-10-12 23:50 | NUR ---
PT ASSISTED FROM BSC WITH ASSISTANCE FROM MOTHER. LARGE LIQUID BROWN WITH MUCOS BM NOTED. COLIN LIFT BACK TO BED. TOLERATED WELL.
--- NOTE | 2018-10-13 00:50 | NUR ---
NO ACUTE CHANGES TO ASSESSMENT. BOWEL TONES NO LONGER HYPERACTIVE AFTER BM. PT REPOSITIONED IN BED. MOTHER TO REMAIN AT BEDSIDE. DENIES OTHER NEEDS. WILL CONTINUE TO MONITOR.
--- NOTE | 2018-10-13 01:08 | NUR ---
PT LOUDLY CALLING OUT "NO MORE" AND MOANING. PT JERKING, RESTLESS, AND AGGITATED. 1 MG DILAUDID GIVEN. WILL CONTINUE TO MONITOR.
--- NOTE | 2018-10-13 01:33 | NUR ---
PT RESTING COMFORTABLY AT THIS TIME.
--- NOTE | 2018-10-13 01:54 | NUR ---
PT HEARD CALLING OUT, RN IN ROOM, PT AGGITATED AND RESTLESS. ATTEND CHANGED, LARGE INCONTINENT VOID WITH SMEAR OF SOFT BROWN BM. SUPPOSITORY PLACED. PT REPOSITIONED. PT NOW RESTNG COMFORTABLY.
--- NOTE | 2018-10-13 02:48 | NUR ---
PT HEARD CALLING OUT, RN IN ROOM, ATTEND CHECKED AND DRY. ORAL CARE PROVIDED FOR THICK SECRETIONS. PT REASSUSRED WITH TOUCH. RESTING AT THIS TIME.
--- NOTE | 2018-10-13 03:30 | NUR ---
PT CONTINUES TO CRY OUT. ATTEND CHECKED AND SMEAR OF BROWN BM NOTED, ATTEND CHANGED. PT REPOSITIONED, HEATING PACK APPLIED TO LOWER ABD, AND 1 MG DILAUDID GIVEN. WILL CONTINUE TO MONITOR.
--- NOTE | 2018-10-13 04:26 | NUR ---
PHONE CALL TO DR. MURPHY REGARDING AGGITATION, INCREASED HR, AND PAIN CONTROL MEASURES USED UP UNTIL NOW. ORDER RC'D FOR 1MG IV ATIVAN ONCE, READ BACK AND VERIFIED.
--- NOTE | 2018-10-13 04:59 | NUR ---
PT CONTINUES TO CALL OUT AND HEART RATE REMAINS IN THE 130'S. WILL COTNINUE TO MONITOR.
--- NOTE | 2018-10-13 05:35 | NUR ---
PHONE CALL TO DR. MURPHY REGARDING TEMP INCREASE TO 103.5 AXILLARY, ORDER RC'D FOR BLOOD CULTURES, TYLENOL ONCE BLOOD CULTURES OBTAINED, AND TO CONTINUE MONITORING.
--- NOTE | 2018-10-13 07:01 | NUR ---
OVERALL PT DID NOT REST WELL THROUGHOUT NIGHT. PAIN AND AGITATION HAVE BEEN DIFFICULT TO MANAGE. ONE TIME LIQUID BM. DRAINAGE FROM GTUBE CONTINUES BUT IS MORE BILE IN COLOR THAN DARK BROWN. FEVER CONTINUES, REPEAT BLOOD CULTURES DRAWN.
--- NOTE | 2018-10-13 08:02 | NUR ---
ASSESSMENT COMPLETED AT THIS TIME. PT IS UNCOOPERATIVE AND ANXIOUS, MOVING AROUND IN THE BED AND INTERMITTENTLY YELLING AND MOANING LOUDLY. PT UNABLE TO TELL ME WHAT HURTS BUT HE SAYS "YES" WHEN I ASK IF HE IS HURTING ANYWHERE. PT IS OTHERWISE NONVERBAL. 2 L/MIN O2 VIA NC IN PLACE. LUNGS ARE CLEAR BUT PT UNABLE TO FOLLOW COMMANDS TO COUGH AND DEEP BREATH. YANKAUR TO SUCTION ON THE WALL AND USED PRN FOR THICK SECRETIONS AT BACK OF THROAT. GTUBE CLAMPED AFTER CHEMICAL PROCESS OPERATOR. HYPOACTIVE BOWEL SOUNDS EXCEPT FOR URQ. PT'S TEMP ELEVATED AT 103.6- DR. MURPHY NOTIFIED. CONTINUOUS TELE- REMAINS SINUS TACHY. LARGE INCONTINENT EPISODE NOTED IN THE BRIED- PT CLEANED AND CHANGED; PT'S MOTHER ALSOP COMPLETED EXTENSIVE ORAL CARE WITH MOUTHWASH, TOOTHBRUSH AND TOOTHPASTE. REDNESS IN GROIN REMAINS AND NYSTATIN APPLIED WITH MEDS. EDUCATION COMPLETED WITH [place]. CALL LIGHT WITHIN REACH. WILL CONTINUE TO MONITOR.
--- NOTE | 2018-10-13 09:15 | NUR ---
THIS RN AND DR. MURPHY AT THE BEDSIDE. PT CALM IN BED AT THIS TIME. [place] UPDATED OF PLAN OF CARE.
--- NOTE | 2018-10-13 10:27 | NUR ---
LARGE INCONTINENT EPISODE; BRIEF CHANGED; COLIN LIFT USED WITH THIS RN AND MOTHER'S ASSISTANCE UP TO BEDSIDE COMMODE. PT SPENDING TIME SITTING UP ON COMMODE WITH HIS MOTHER SITTING AT HIS SIDE. PILLOWS AND COLIN HOLDING PT UP. MAG CITRATE AND FREE WATER BOLUS GIVEN WHILE UP ON COMMODE. LINENS CHANGED WELL. CALL LIGHT WITHIN REACH. WILL CONTINUE TO MONITOR AND RETURN TO ASSIST HIM OFF COMMODE AFTER SOME TIME SITTING UP ON IT.
--- NOTE | 2018-10-13 11:15 | NUR ---
PT ASSISTED BACK TO BED WITH COLIN BY THIS RN AND [place]ON FROM [facility]- PT HAD MEDIUM SIZED, SOFT/MUCOUSY BM UP ON COMMODE. PT WAS FALLING ASLEEP WHILE UP ON COMMODE AND IS SLEEPING COMFORTABLY IN BED NOW. ALL SEIZURE PADS IN PLACE WELL BED ALARM PT'S MOM IS LEAVING THE BEDSIDE FOR A BIT. PT'S VS NORMAL ON CONTINUOUS MONITORING. CHEST RISING AND FALLING. CALL LIGHT WITHIN REACH. WILL CONTINUE TO MONITOR.
--- NOTE | 2018-10-13 12:01 | NUR ---
PT ASLEEP AT THIS TIME. FOCUSED ASSESSMENT COMPLETED. VS AND CONDITION REMAIN STABLE ON CONTINUOUS TELE MONITORING. CHEST RISES AND FALLS WNL; TEMP HAS GONE DOWN TO 98.1. BED ALARM, SEIZURE PADS AND ASPIRATION PRECAUTIONS IN PLACE. CALL LIGHT WITHIN REACH. WILL CONTINUE TO MONITOR.
--- NOTE | 2018-10-13 13:30 | NUR ---
GIVING MEDICATION THROUGH GTUBE, I NOTICE A LARGE AMOUNT OF DARK BROWN EMESIS ON THE BED AND PILLOW BY PT'S FACE AND UPPER BODY. MEDS ALREADY HAD BEEN GIVEN AND GTUBE CLAMPED OR ELSE I WOULDV'E WAITED AND HOOKED GTUBE TO GRAVITY. AFTER AN HOUR, I WILL DO THIS. PT GIVEN FULL BED BATH WITH 2 RN ASSIST- WELL FACE AND ABEBE WASHED, SHAMPOO CAP, ORAL CARES AND SUCTIONED. FULL LINEN CHANGE. PT ALSO HAD A SECOND BM OF THE SHIFT IN HIS BRIEF- MEDIUM SIZED, LIGHT BROWN AND MORE FORMED THAN HIS MORNING BM. BRIEF CHANGED AFTER IAM CARE. PT REPOSITIONED TO HIS LEFT SIDE. ALL EXTREMITIES ELEVATED ON PILLOWS. PT QUITE DROWSY AT THIS TIME. VS ARE STABLE. PT'S HEAD AT 45 DEGREES. PT CONTINUES TO SLEEP AT THIS TIME. CALL LIGHT WITHIN REACH. ASPIRATION PRECAUTIONS, SEIZURE PADS AND FALL PRECAUTIONS CONTINUED. WILL CONTINUE TO CLOSELY MONITOR.
--- NOTE | 2018-10-13 14:08 | NUR ---
ONE OF PT'S CAREGIVERS HAS ARRIVED AT THE BEDSIDE- SHE'S BEEN UPDATED ON PT'S STATUS AND PLAN OF CARE. SHE DENIES ANY NEEDS. PT CONTINUES TO REST IN BED SLEEPING WITHOUT ANY SIGNS OF DISCOMFORT OR DISTRESS. WILL CONTINUE TO MONITOR.
--- NOTE | 2018-10-13 15:10 | NUR ---
PT REPOSITIONED TO HIS RIGHT SIDE; VERY LARGE LOOSE BM IN BRIEF; PT CLEANED, FULL LINEN CHANGE COMPLETED; NEW BRIEF APPLIED. PT CAREGIVER AT BEDSIDE WELL CLINTON (CALLED ON THE PHONE) UPDATED ON PLAN TO TRANSFER TO M/S ROOM 112.
--- NOTE | 2018-10-13 16:27 | NUR ---
CARAFATE AND 4TH WATER BOLUS OF THE DAY GIVEN. VANCO INITIATED. PT RESTING COMFORTABLE. VS REMAIN STABLE. CAREGIVER AT HIS SIDE. ORAL CARES PROVIDED. CALL LIGHT WITHIN REACH. WILL CONTINUE TO MONITOR.
--- NOTE | 2018-10-13 17:05 | NUR ---
REPORT GIVEN TO RECEIVING RN KRYSTIAN. PT PUSHED IN BED OVER TO M/S UNIT TO ROOM 112 WITH ALL BELONGINGS. CAREGIVER AT HIS SIDE. TRANSFER COMPLETE.
--- NOTE | 2018-10-13 17:24 | NUR ---
PT TRANSFERED OVER FROM CCU AT 1715. PT HAS CAREGIVER WITH HIM AT THIS TIME. PT MOANS, ONE WORD ANSWERS AT TIMES. INCONT B&B.
--- NOTE | 2018-10-13 17:47 | NUR ---
PT MOANED THAT HE NEEDED CHANGED. PT SMEARED. BRIEF CHANGED.
--- NOTE | 2018-10-13 19:05 | NUR ---
ROUNDED CHARGE. CAREGIVER IN THE ROOM. CAREGIVER DENIES ANY COMMENTS, QUESTIONS, OR CONCERNS. CALL LIGHT IN REACH.
--- NOTE | 2018-10-13 19:32 | NUR ---
moaning, c/o abd pain. Medicated wtih motrin per 2/10 abd pain. med given crushed and through gt
--- NOTE | 2018-10-13 20:14 | NUR ---
medicated wtih ativan 0.5mg via gt increased agitation
--- NOTE | 2018-10-13 22:56 | NUR ---
ASSISTED RN JOSEPH STRAIGHT CATH PATIENT AND REPOSITIONED. CAREGIVER IN THE ROOM.
--- NOTE | 2018-10-13 22:57 | NUR ---
straight cath per no void. 425cc dark yellow urine obtained. procedure explained, coopertive. turned and repositioned
--- NOTE | 2018-10-13 22:59 | NUR ---
V/S AND I&O DONE AND CHARTED.
--- NOTE | 2018-10-13 23:57 | NUR ---
RESTING, O2 2L NC IN PLACE, NO DISTRESS NOTED, CAREGINVER IN ROOM. PT TURNED EARLIER. FALL AND ASPIRATION PRECAUTIONS IN PLACE. CALL LIGHT AT HANDS REACH, PT UNABLE TO USE CALL LIGHT, CONTRACTURES OF LE HAND AND LE, NPO, MOUTH CARE DONE EARLIER
--- NOTE | 2018-10-14 01:17 | NUR ---
RESTLESS, MOANING, MEDICATED WT MOTRIN 400MG PER PEG TUBE 10/10 ABD PAIN. REPOSITIONED IN BED. O2 IN PLACE, ASPIRATION PRECAUTIONS IN PLACE. CAREGIVER IN ROOM
--- NOTE | 2018-10-14 02:54 | NUR ---
PT CAREGIVER STATED THAT PT IS DRY HEAVING. DR GUIDRY NOTIFIED, AND NEW ORDERS RECEIVED FOR SL/PER PEG TUBE ZOFRAN 4MG Q6HPRN
--- NOTE | 2018-10-14 03:06 | NUR ---
MEDICATED WITH 4MG SL ZOFRAN, PROCEDURE EXPLAINED, PT COOPERATIVE, NO EMESIS , ATTENDS CHECKES, DRY, REPOSITIONED EARLIER BY CAREGKHADIJAH.
--- NOTE | 2018-10-14 05:28 | NUR ---
PT CONTINUES ON O2 2L NC. HAS BEEN MEDICATED 2X WITH MOTRIN PER ABD PAIN. EFFECTIVE. WAS MEDICTED WTIH SL ZOFRAN PER C/O DRY HEAVING. WAS STRAIGHT CATH HE HAD NOT URINATED SINCE 2PM. 425CC DRAINED. PROCEDURE EXPLAINED, COOPERATIVE. WAS INCONTINENT OF URINE AND SOFT-LIQUID BM, LARGE THIS AM. HAS BEEN AWAKE MOST OF THIS SHIFT. TURNED FREQUENTLY. BARRIER LOTION TO RED IAM AREA, ATTENDS IN PLACE. PT HAS PEG TUBE FLUSHES EASILY. CAREGIVER IN ROOM
--- NOTE | 2018-10-14 07:33 | NUR ---
0720: BEDSIDE REPORT RECIEVED FROM JOSEPH JAUREGUI. PT APPEARS COMFORTABLE AND IN NO DISTRESS. CG AT BEDSIDE AND PT REPOSITIONED AT THIS TIME.
--- NOTE | 2018-10-14 10:13 | NUR ---
PT'S CG IN THE ROOM AND SHE STATES THE PT WILL TELL HER IF HE IS HAVING PAIN AND THAT SHE UNDERSTANDS HIM WHEN HE DOES SO. PEG TUBE WAS FLUSHED WITH 350CC OF WATER AFTER GIVING HIM HIS AM MEDICATIONS PER HIS HOME ROUTINE. PT APPEARS IN NO DISTRESS AT THIS TIME AND IS SPEAKING WHICH I AM UNABLE TO UNDERSTAND, HE IS SMILEING HE IS SPEAKING. CG REMAINS AT THE BEDSIDE AND WAS INSTRUCTED IN THE USE OF THE SUCTION. HOB REMAINS ELEVATED AFTER HIS FLUID BOLUS.
--- NOTE | 2018-10-14 10:16 | NUR ---
BURLAP WORKER IN ROOM WITH PT. PT TALKATIVE.
--- NOTE | 2018-10-14 10:52 | NUR ---
PT INCONT OF STOOL AND IS BEING CLEANED UP AT THIS TIME.
--- NOTE | 2018-10-14 11:29 | NUR ---
PT CONTINUES TO APPEAR COMFORTABLE WITH NO NEW PROBLEMS. TUBE FEEDING GIVEN TO THE PT ORDERED.
--- NOTE | 2018-10-14 11:57 | NUR ---
CALL LIGHT ANSWERED. CAREGIVER REPORTED PT WAS HAVING "EXTREME" ABDOMINAL PAIN. PT NOTED TO HAVE FACIAL GRIMACING, YELLING OUT, AND TENSING BODY. FEEDING IN PROCESS. PT WITH FORMULA LIKE SECRETIONS. HOB ELEVATED, SUCTION PROVIDED, AND AIR RELEASE FROM STOMACH VIA G-TUBE. PT RESPONDED WELL TO INTERVENTIONS. PRIMARY NURSE NOTIFIED.
--- NOTE | 2018-10-14 12:07 | NUR ---
I was notified of the pt's stutus by Alma JAUREGUI. I checked in on Vinod and he appears in no distress and happy. Lung sounds decreased in the bases and clear uppers which is no change and his RR status. HOB remains quite elevated with suction available.
--- NOTE | 2018-10-14 14:01 | NUR ---
PT JUST FINISHED HIS G-TUBE FEEDING AND TOLERATED IT WELL, HOB REMAINS AT 46 DEGREES. PT APPEARS COMFORTABLE AND THE CG DENIES ANY NEW PROBLEMS.
--- NOTE | 2018-10-14 16:00 | NUR ---
VANCO DOSE IS BEING HELD AT THIS TIME PENDING THE TROUGH LEVEL RESULTS. PT WAS INCONT OF STOOL AND URINE AND WAS CLEANED UP AND REPOSITIONED IN HIS BED AT THIS TIME. PT'S GROIN AND RECTAL AREA ARE RED AND APPEAR IRRITATED, BARRIER CREAM WAS APPLIED.
--- NOTE | 2018-10-14 16:55 | NUR ---
Pt appeared uncomfortable and is sweating. Pt cleaned, repositioned and medicated for pain.
--- NOTE | 2018-10-14 17:18 | NUR ---
Pt's mother at bedside. Pt now appears comfortable and is no longer sweating.
--- NOTE | 2018-10-14 18:25 | NUR ---
PT GIVEN HIS 3 G-TUBE FEEDING AND FLUID BOLUS ORDERED. PT TOLERATED WELL AND THE HOB REMAINS ELEVATED AT 51 DEGREES.
--- NOTE | 2018-10-14 22:30 | NUR ---
V/S DONE AND CHARTED.
--- NOTE | 2018-10-14 22:45 | NUR ---
Coop with assessment. on room air, oral suctioning done per increased thin clear oral discharge, hob elevated, aspiration precautions inplace. abd peg tube patent, meds given per peg tube, abd scratches healing. Red christina area barrier cream applied per mother, incontinent of urine and bowel. care done by mother, repositioned by mother too. L hand contracture, with heel protectors in place. IVF infusing w/o problems. no c/o adverse reaction to abx. Medicated with Motrin 400mg po c/o abdpain. Pt unable to use call lig. Rails up. Mother in room
--- NOTE | 2018-10-15 00:35 | NUR ---
RESTLESS, MEDICATED WITH ATIVAN 0.5MG PER PEG TUBE. ORAL SUCTION DONE. MOTHER IN ROOM, CALL LIGHT AT BEDSIDE, PT NPO
--- NOTE | 2018-10-15 02:13 | NUR ---
RESTING, EYES CLOSED, CALM, HOB ELEVATED. IVF INFUASING, CALL LIGHT AT BEDSIDE, MOTHER IN ROOM
--- NOTE | 2018-10-15 04:30 | NUR ---
MOUTH CARE DONE AND THIN, WHITE ORAL SECRETIONS SUCTIONED. ON ROOM AIR. REPOSITIONED IN BED. INCONTINENT OF URINE AND BOWEL. SKIN CARE DONE, BARRIER CREAM TO IAM AREA. COOPERATIVE. MEDS GIVE PER PEG TUBE. TOLERATING IVF AND ABX. MOTHER IN ROOM
--- NOTE | 2018-10-15 05:37 | NUR ---
PT CURRENTLY AWAKW, WAS MEDICATED WTIH MOTRIN PER PAIN AND ATIVAN PER RESTLESSNESS, BOTH EFFECTIVE. INCONTINENT OF BOWEL AND BLADDER, BARRIER CREAM TO IAM AREA. CONTRACTURE L HAND AND LEG, GETS TURNED OFTEN. YAUNKER AT BEDSIDE FOR ORAL SECRETION. TOLERATING IVF/ABX AND PO ABX W/O C/O SIDE EFFECTS. R FINGER COVERED WITH GAUZE. COOPERATIVE WITH PROCEDURE, MOTHER AT BEDSIDE
--- NOTE | 2018-10-15 06:35 | NUR ---
MEDICATED WTIH MOTRIN 400MG PER PEG TUBE PER 04/11 ABD PAIN. RESTLESS, MOANING AND SCREAMING. CALMED DOWN
--- NOTE | 2018-10-15 07:45 | NUR ---
REPORT RECEIVED FROMSHANIA RUIZ. PT IN BED WITH MOM AND CAREGIVER IN ROOM. JOSEPH EXPLAINED HIS PARTICULAR G TUBE. MOTHER FILLED IN OTHER DETAILS.
--- NOTE | 2018-10-15 08:23 | NUR ---
PATIENT WAS AWAKE. FAMILY IN THE ROOM WITH HIM.PATIENT IS NPO. RESEARCH ASST IS ALSO IN ROOM WITH PATIENT. ROTO MIXER OPERATOR OTHER NEEDS AT THIS TIME. CALL LIGHT IN REACH.
--- NOTE | 2018-10-15 09:43 | NUR ---
PT FAMILY IN ROOM. THEY JUST CHANGED HIM FOR WET AND BM. PT STATES HIS PAIN IS 6\10. CANNOT SAY EXACTLY WHERE. HAS HAD ABD XRAY AWAITING RESULTS.
--- NOTE | 2018-10-15 11:02 | NUR ---
ASSISTED CAREGIVER WITH TUBE FEEDING PT APPEARS HUNGRY. TOLERATED WELL. ABD NON TENDER. STILL FIRM AROUND TUBE SITE.
--- NOTE | 2018-10-15 11:42 | NUR ---
PT STATES PAIN IS 10/10. ADMINSTERED MORNING MEDS AND 1 MG DILAUIDID. CAREGIVER STATES HE APPEARS PAINFUL TO HER. GIVEN 200ML FREE WATER WITH MED ADMINISTRATION. PT TOLERATED WELL.
--- NOTE | 2018-10-15 13:40 | NUR ---
PATIENT IN BED. DEPENDS CHANGED AND IAM CARE DONE BY THIS MANAGER [employer] AND RN. CAREGIVER IN ROOM. CALL LIGHT IN REACH. NO FURTHER NEEDS AT THIS TIME.
--- NOTE | 2018-10-15 14:18 | NUR ---
PT IN BED, MOTHER STEPPED AWAY AND PCG IS AT BS. PT IS VERY ANIMATED, BIG SMILES. EXTENDED A BLESSING, VISITORS CAME IN. WILL FOLLOW NEEDED
--- NOTE | 2018-10-15 15:23 | NUR ---
SPOKE WITH CAREGIVER IN ROOM. PATIENT IS IN BED BUT IS NON-VERBAL. CAREGIVER STATES HE DOESN'T KNOW OF ANYTHING THEY NEED AT THE HOUSE TO RETURN SAFELY. MOTHER IS NOT PRESENT AT THIS TIME. DISCUSSED WITH CAREGIVER TO LET FAMILY KNOW TO DISCUSS WITH STAFF IF THERE IS ANY NEW EQUIPMENT NEEDED. SPOKE WITH STAFF NURSE ABOUT MAKING SURE FAMILY IS NOTIFIED TO LET US KNOW OF ANY NEEDS FOR DISCHARGE. RN STATES SHE HAS HAD CONVERSATION WITH MOTHER WHO DOES INTEND TO RETURN PATIENT TO HOME AT DISCHARGE. WILL CONTINUE TO FOLLOW.
--- NOTE | 2018-10-15 17:40 | NUR ---
ADMINISTERED CARAFATE THROUGH TUBE. PT TENDER TO TOUCH IN ABD.
--- NOTE | 2018-10-15 19:05 | NUR ---
BEDSIDE REPORT RECEIVED FROM OFFGOING RN. PT RESTING IN BED WITH CG AT BEDSIDE. NEEDS DENIED AT THIS TIME. CALL LIGHT WITHIN REACH.
--- NOTE | 2018-10-15 22:06 | NUR ---
V/S AND I&O DONE AND CHARTED. CHANGED ATTENDS WITH VOIDINGS AND REPOSITIONED. CAREGIVER IS IN THE ROOM.
--- NOTE | 2018-10-15 22:47 | NUR ---
PT ASSESSMENT COMPLETE. PT UNABLE TO ACCURATELY STATE PAIN LEVELS TO THIS POWER MARKETER OR CG AT BEDSIDE. PT CRYING OUT, TENSE, SQUIRMING IN BED. PRN DILAUDID ADMINISTERED. 50 ML JEVITY FEEDING ADMINISTERED. PT TOLERATED WELL. BT ACTIVE. ABD RIGID TO LUQ AND LLQ. PT UNABLE TO VERBALIZE WHETHER HE HAS ABD TENDERNESS OR NOT, NO NONVERBAL S/SX OF ABD TENDERNESS PRESENT. HEEL PROTECTORS PRESENT OVER BILATERAL HANDS. PT AND CG DENY FURTHER NEEDS AT THIS TIME. PLAN TO COME BACK AND CHANGE PT AND GET HIM READY FOR BED. CG STATES UNDERSTANDING. CALL LIGHT WITHIN REACH.
--- NOTE | 2018-10-15 22:52 | NUR ---
CHANGED ATTENDS. PATIENT VOIDED. PATIENT REPOSITIONED.
--- NOTE | 2018-10-16 01:22 | NUR ---
PT MOANING LOUDLY. INFORMATION OFFICER TO ROOM, ASSISTED CG TO CHANGE PT ATTENDS AND REPOSITION PT. ORAL CARE PROVIDED. PT RESTING QUIETLY AT THIS TIME. CG DENIES FURTHER NEEDS. CALL LIGHT IN REACH.
--- NOTE | 2018-10-16 05:05 | NUR ---
PT RESTLESS AT BEGINNING OF SHIFT, SLEPT WELL LATTER PART. DILAUDID X 1 FOR PT REPORTS OF PAIN. PT UNABLE TO VERBALIZE PAIN LOCATION OR NUMBER. NONVERBAL PAIN SCALE 6/10. O2 @ 2LPM VIA NC. LUNGS DIM IN BILATERAL BASES. PRN SUCTION FOR INCREASED SECRETIONS. G-TUBE, JEVITY FEEDING 50 ML, PILLS THROUGH G-TUBE WITH FREE WATER. TUBE FEED HELD SINCE MIDNIGHT PER ORDER. ABD FIRM, ESPECIALLY AROUND G-TUBE SITE. PT INCONTINENT, ATTENDS IN PLACE. STRAIGHT CATH PRN. EXTREMITIES CONTRACTURED. HEEL PROTECTORS TO HANDS DUE TO PT SCRATCHING HIS SKIN. LR @ 50. C.DIFF R/O. STOOL SAMPLE NEEDED.
--- NOTE | 2018-10-16 05:57 | NUR ---
PT ASSESSMENT COMPLETE. PT RESTING WITH EYES CLOSED, WAKES EASILY TO SEO ASSISTANT'S IN ROOM TO CHANGE AND OBTAIN VITALS. PT BECOMES TENSE AND SHIFTING, CRYING OUT. PT'S CG BELIEVES THAT HE IS IRRITATED FROM BEING WOKE UP. O2 IN PLACE @ 2LPM VIA NC. LUNG SOUNDS WITH RHONCI THROUGHOUT. PT HAS THIN CLEAR SECRETIONS IN MOUTH, SUCTIONED BY THIS SENIOR EDUCATION SPECIALIST. BT'S ACTIVE. PT STATES "YES" WHEN ASKED IF TENDER TO PALPATION. G-TUBE VENTED AT THIS TIME. PT AND CG DENY FURTHER NEEDS. CALLLIGHT IN REACH.
--- NOTE | 2018-10-16 08:59 | NUR ---
Patient is awake face washed, caregiver in his room.no needs at this time.
--- NOTE | 2018-10-16 11:50 | NUR ---
PT LEFT FOR SURGERY.
--- NOTE | 2018-10-16 12:31 | NUR ---
PT IN SURGERY, WILL CONTINUE TO FOLLOW NEEDED
--- NOTE | 2018-10-16 13:15 | NUR ---
New admit to the floor. Pt awake, alert to self. Pt appears without notable distress. Pt is on 2 L 02 per nc, sat level is 96%, resp even and non labored. vs stable. HOB elevated for aspiration precautions. Mom at bedside. Personal supplies and call light within reach. Peg tub intact, at this time, no notable s/s of redness.
--- NOTE | 2018-10-16 13:30 | NUR ---
10/16/18 1330 Destiny Luevano 1227 PT ARRIVED IN PACU AWAKE. ANESTHESIA AT BEDSIDE GIVING PT 5 PUFFS OF VENTOLIN INHALER. 1230 PT GURGLING AND SUCTIONED AT BEDSIDE. 1236 OXYGEN REMOVED. ANESTHESIA AT BEDSIDE STATING "PT WAS ON OXYGEN ON THE FLOOR." O2 AT 2L VIA NC PLACED. 1245 PT SMILING. ANESTHESIA LEFT BEDSIDE. 1300 TO MED SURG FLOOR. REPORT GIVEN TO RN.
--- NOTE | 2018-10-16 14:20 | NUR ---
PT AWAKE, ALERT TO SELF. VS TABLE, PT IS ON 2L NC, 97% PER CPOX. PERSONAL SUPPLIES AND CALL LIGHT WITHIN REACH. NO NEEDS AT THIS TIME. CALL LIGHT WITHIN REACH. PEG TUBE INTACT, NO REDNESS NOTED. MOM AT BEDSIDE.
--- NOTE | 2018-10-16 15:20 | NUR ---
PT AWAKE, ALERT TO SELF. VS STABLE, ON 2L 02 PER NC, SAT LEVEL 98%. PERSONAL SUPPLIES AND CALL LIGHT WITHIN REACH. RESP EVEN AND NON LABORED. HOB ELEVEATED FOR ASPIRATION PRECAUTIONS. SUCTION AT BEDSIDE PRN. MOM AT BEDSIDE. NO NEEDS. PEG INTACT, NO REDNESS NOTED. PERSONAL SUPPLIES WITHIN REACH.
--- NOTE | 2018-10-16 16:49 | NUR ---
pt awake, laughing. Vs stable, 98% on 2 l per home setting. Pt flacc scale is 0/10. Motrin recently admin. Pt has has care providers in room throughout day. HOB elevated, suction at bedside, prn by mouth for oral suctretions. Pt's airway is clear at this time. Personal supplies within reach. Peg tub intact and working approp. Personal supplies and call light within reach of pt.
--- NOTE | 2018-10-16 17:48 | NUR ---
ADMIN 1.5 KVNG ELEMENTAL BOLUS FEEDING OF 50ML GIVEN. FLUSHED WITH 30ML FREE WATER POST. PT TOLERATED WELL.
--- NOTE | 2018-10-16 18:20 | NUR ---
PT ALERT, NON VERBAL. MOTRIN PRN. SUCTION PRN BY MOUTH. 2L O2 PER HOME. Q2 TURN. G TUBE REPLACED TODAY. JEVITY FEED/FREE WATER TID-SEE INSTRUCTIONS. INCONTINENT. CONTRACTURED EXT. HEEL PROTECTORS. R/O C-DIFF. STOOL NEEDED. D5 WITH WATER @100ML/HR.
--- NOTE | 2018-10-16 19:05 | NUR ---
SHIFT REPORT RECEIVED. PATIENT RESTING IN BED. CAREGIVER AT BEDSIDE. PATIENT APPEARS COMFORTABLE. 2L NC IN PLACE.
--- NOTE | 2018-10-16 20:30 | NUR ---
EVENING MEDICATIONS PROVIDED PER ORDER. PATIENT IS ALERT AND MAKING NOISE BUT SMILING AND APPEARS COMFORTABLE. PATIENT WAS INDICATING TO HIS CAREGIVER THAT HE WANTED DINNER. 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 PROVIDED 250MLS OF WATER WITH MEDS. PATIENT'S RIGHT HAND HAS SOME ABRASIONS ON THE NUCKLES FROM FLAILING, COVERED AREA WITH OINTMENT, GAUZE PADDING AND KERLEX. IV SITE WNL. NYSTATIN APPLIED PER ORDER, IAM AREA IS RED BUT SKIN IS INTACT. ORAL SUCTIONING PERFORMED, PATIENT TOLERATES WELL. REPOSITIONED FOR COMFORT. CAREGIVER AT BEDSIDE.
--- NOTE | 2018-10-16 21:30 | NUR ---
PATIENT APPEARS COMFORTABLE, RESTING IN BED. ATTENDS DRY. CAREGIVER DENIES NEEDS.
--- NOTE | 2018-10-16 22:15 | NUR ---
CAREGIVER AND PLAN MANAGER TERESE CHANGED PATIENT'S ATTENDS, WHICH HE HAD SOAKED IN URINE.
--- NOTE | 2018-10-16 23:20 | NUR ---
PATIENT CALLING OUT FOR LAST 30 MINS, ATTEMPTS TO REPOSITION PATIENT AND PROVIDED SUCTIONING HAVE NOT BEEN SUCESSFUL IN SETTLING PATIENT. CAREGIVER BELEIVES HE MIGHT BE IN PAIN. FLACC SCORE; 6/10. PRN DILAUDID PROVIDED. PATIENT HAVING SIGNIFICANT SECREATIONS. ENCOURAGED CAREGIVER TO PROVIDE PRN SUCTIONING OR TO ALERT STAFF FOR NEED. NO OTHER NEEDS AT THIS TIME.
--- NOTE | 2018-10-17 00:26 | NUR ---
PATIENT HAS BEEN MORE SETTLED BUT THE CAREGIVER THINKS THAT HE HAS BEEN "GASPING". PATIENT APPEARS SLIGHTLY RESTLESS AND HAS ORAL SECREATIONS. SUCTIONING DONE AND PATIENT APPEARS TO BREATH EASIER. O2 SAT 97% ON 2L NC. DISCUSSED OPTIONS FOR PRN MEDS WITH CAREGIVER. SHE STATES THE PATIENT'S MOTHER WILL BE HERE IN HALF AN HOUR AND ASK THAT WE WAIT UNTIL THEN TO DECIDE.
--- NOTE | 2018-10-17 02:10 | NUR ---
PATIENT CONTINUES TO CALL OUT AND FLAIL IN BED. PATIENT'S MOTHER ARRIVED A LITTLE AFTER 0100 AND IS REQUESTING "SOMETHING TO CALM HIM DOWN". PRN DILAUDID AND ALPRAZOLAM PROVIDED. PATIENT'S MOTHER REQUESTING PRN ATIVAN PER PATIENT'S HOME ROUTINE. MD CONTACTED AND ORDERS RECEIVED. PATIENT'S MOTHER NOTIFIED OF CHANGE.
--- NOTE | 2018-10-17 02:32 | NUR ---
PRN ATIVAN PROVIDED PER PATIENT'S MOTHER'S REQUEST. PATIENT IS ALERT IN BED, MOANING AND FLAILING. ATTEMPTS TO REPOSITION PATIENT AND PROVIDED ORAL CARE COMPLETED.
--- NOTE | 2018-10-17 04:00 | NUR ---
PATIENT CONTINUES TO BE STIFF AND FLAILING IN BED. PATIENT'S MOTHER BELIEVES HE IS PAINFUL OR POSSIBLE CONSTIPATED. PRN SUPPOSITORY PROVIDED PER REQUEST. PRN DILAUDID PROVIDED. PATIENT HAS MOIST BREATH SOUNDS AND LARGE AMOUNTS OF ORAL SECREATIONS. REQUESTED RT ASSISTANCE TO POSITION PATIENT FOR IMPROVED BREATHING AND PERFORM SUCTIONING. RT WAS ABLE TO REDUCE LOOSE BREATH SOUNDS AND PATIENT APPEARS MORE COMFORTABLE AT THIS TIME. O2 SAT REMAINS GREATER THAN 95% ON 2L NC. MOTHER AT BEDSIDE. ENCOURAGING REST.
--- NOTE | 2018-10-17 06:07 | NUR ---
PATIENT HAD DIFFICULTY RESTING THIS SHIFT. UNSURE IF PATIENT IS PAINFUL OR RESTLESS. PRN ATIVAN AND DILAUDID PROVIDED. INCREASED ORAL SECREATIONS NOTED, RT ASSIST FOR SUCTIONING. PRN SUPPOSITORY PROVIDED PER PATIENT'S MOTHER'S REQUEST, NO STOOL. PATIENT INCONTINENT OF URINE, NO STRAIGHT CATH REQUIRED. IV FLUIDS PER ORDER. TURN PATIENT Q2H. ASPIRATION AND SEIZURE PRECAUTIONS. G-TUBE APPEARS WNL, BOLUS FEEDINGS PER ORDER. FREE WATER TID. 2L NC, CHRONIC HOME O2.
--- NOTE | 2018-10-17 06:29 | CONS ---
[facility] [address] [place], [place] [address] Signed DATE OF CONSULTATION: 10/16/2018 CHIEF COMPLAINT: Pain with gastrostomy tube feedings. HISTORY OF PRESENT ILLNESS: Roland is a 28-year-old man who was born with cerebral palsy and a history of seizures. He does suffer with urinary tract infections and aspiration pneumonia. He also has acid reflux. His mother happens to be a registered nurse, and she and her and his caregiver have taken excellent care of Roland for many years. We have helped Roland in the past with exchange of G-tubes and so forth. He now has an 18-Belarusian x 2 cm length Danilo-Alvarado low-profile gastrostomy tube in place. There was some concern again that he was having some pain with tube feeds. He has been admitted mainly because of sepsis of unknown origin. He has been on Levaquin and Flagyl and his white counts dropped from 12 down to 7.3, and he is doing much better. I have been asked by the internal medicine service to come see him for consideration of upper endoscopy and possible gastrostomy tube exchange. PAST MEDICAL HISTORY: Urinary tract infections, aspiration pneumonia, cerebral palsy, seizures, and gastroesophageal reflux disease. PAST SURGICAL HISTORY: Cholecystectomy, gastrostomy tube placement (Danilo-Alvarado low-profile 18-Belarusian x 2 cm gastrostomy tube), appendectomy, left hip osteotomy, baclofen pump, and Kilgore rods. SOCIAL HISTORY: He does not smoke or drink. Dr. Ema Karimi is primary care provider. He prefers the [facility]. His mother at [phone]. FAMILY HISTORY: Not reviewed currently as the family not present. REVIEW OF SYSTEMS: He had 10 systems reviewed with his caregiver and seems to be about the same as when I saw him last, except he has grown his jacome out. ALLERGIES: Morphine and cefepime. MEDICATIONS: Cipro, baclofen, Desitin, Xanax, Phenergan, belladonna/opium, probiotic, marijuana, Nexium, aloe vera, magnesium oxide, lidocaine, Lubrifresh, nystatin, Zanaflex, Electronically Signed By: BÁRBARA DALEY MD 10/17/18 0629 PATIENT NAME: ROLAND MARIN CONSULTATION DATE OF : 89 REPORT #: [id number] PHYSICIAN: BÁRBARA DALEY MD PCP: EMA KARIMI MD REPORT IS CONFIDENTIAL AND NOT TO BE RELEASED WITHOUT AUTHORIZATION [facility] [address] [place] [id number] Signed citalopram, cetirizine, sucralfate, sennosides, Tylenol, and Chloraseptic spray. PHYSICAL EXAMINATION: VITAL SIGNS: Blood pressure 164/85, heart rate 72, respiratory rate is 20, temperature is 98.7. He is 98% on room air. He is 5 feet 7 inches at 48 kg. GENERAL: Roland is a 28-year-old gentleman lying supine in his hospital bed. His caregiver is in the room. His mom is not present currently. He is clearly alert, awake, and interactive. He has a lot of energy today and seems to be at his baseline. LUNGS: Clear to auscultation bilaterally. HEART: Regular rhythm. G-tube site actually looks quite nice. There was a little bit of irritation along the costal margin, but otherwise there are no local signs or symptoms of infection. There is no swelling, no obvious granulation tissue or other concerns. The G-tube rotates 360 degrees without any resistance whatsoever. LABORATORY DATA: His white blood count was 12, it is now 7.3; hemoglobin 13. His BUN is 5, creatinine 0.7. Lactic acid on admission was 0.9. His INR is 1. Urine specific gravity was high at 1.058 when he came in, but it has now improved. He had 2+ bacteria in the urine and a C. diff culture was sent off in the stool, but it is pending. RADIOGRAPHIC STUDIES: Abdominal x-rays shows some air in the colon and coarse of the metal from his Kilgore rods. His chest x-ray was unremarkable. The CT scan and pelvis shows the small hiatal hernia with some stool in the right colon, his Kilgore rods, but no obvious bowel obstruction and a few air bubbles in the bladder. ASSESSMENT AND PLAN: Roland is a 28-year-old gentleman who presents as above. He clearly having some pain with his G-tube feedings. We have actually been through this in the past and used it turns out fine and we are going to use our anesthesia provider to help us sedate him and watch his airway and will be able to pass the gastroscope and look inside the stomach and make sure that the tube has not pulled through the gastric wall. We can certainly change out the tube currently. His mom has one in the room, but we could use one supplied by the hospital. She has gone for the moment. When she comes back, we will go over this with her and will get this done hopefully here shortly. The caregiver had expressed understanding and agrees above plan. Bárbara Daley MD ALB/MODL Electronically Signed By: BÁRBARA DALEY MD 10/17/18 0629 PATIENT NAME: ROLAND MARIN CONSULTATION DATE OF : [birth year] REPORT #: [id number] PHYSICIAN: BÁRBARA DALEY MD PCP: EMA KARIMI MD REPORT IS CONFIDENTIAL AND NOT TO BE RELEASED WITHOUT AUTHORIZATION [facility] [address] [place] [address] [place], [place] [address] Signed /[id number] cc: MD Ema Ortiz MD Copies: BÁRBARA DALEY MD, JONATHAN MD ~ Electronically Signed By: BÁRBARA DALEY MD 10/17/18 0629 PATIENT NAME: ROLAND MARIN CONSULTATION DATE OF : [birth year] REPORT #: [id number] PHYSICIAN: BÁRBARA DALEY MD PCP: EMA KARIMI MD REPORT IS CONFIDENTIAL AND NOT TO BE RELEASED WITHOUT AUTHORIZATION
--- NOTE | 2018-10-17 06:29 | OR ---
[facility] [address] [place], [place] [address] Signed DATE OF OPERATION: 10/16/2018 SURGEON: Bárbara Daley MD PREOPERATIVE DIAGNOSES: 1. Danilo-Alvarado low profile 18-Nepali x 2.3 cm in length gastrostomy tube. 2. Pain with tube feedings at G-tube site. 3. Cerebral palsy. POSTOPERATIVE DIAGNOSES: 1. Moderate diffuse gastritis. 2. Mild gastric outlet obstruction from gastritis. 3. Skwjv-lm-pgcbxehf sized hiatal hernia. PROCEDURES: 1. Esophagogastroduodenoscopy with CLOtest and biopsy of the antrum. 2. Replacement of gastrostomy tube with Danilo-Alvarado low profile 18-Nepali x 2.0 cm length and 5 mL balloon gastrostomy tube. ESTIMATED BLOOD LOSS: None. INDICATIONS: Roland is a 28-year-old gentleman born with cerebral palsy, known to have seizures and acid reflux along with aspiration pneumonia and recurrent urinary tract infections. His mother happens to be a registered nurse and she has taken excellent care of him for many years. Roland was re-admitted to our hospital recently with sepsis of unknown origin, but most likely from his urinary tract infection. It seems that the chest x-ray was unremarkable. He was complaining of pain with his routine gastrostomy feeds. Consequently, I was asked to see him as a general surgeon on-call. I met with Roland and his mom and we decided we would take him down to our endoscopy suite and look in with our gastroscope and assess the stomach and replace the gastrostomy tube. There seemed to be at least 1 cm of additional length on the gastrostomy tube, which is probably not needed. Consequently, his mother had purchased a shorter gastrostomy tube measuring 2.0 cm versus the 2.3 cm, he currently has in place. Roland and his mom of course are quite familiar with upper endoscopy. They have been through many times. They understand there is risk including, but not limited to gas, bloating, crampy abdominal pain, bleeding, perforation, requiring surgery, and missed diagnosis. Also given his cerebral palsy, his seizures in the large tongue and so forth, it is prudent, and we always use an anesthesia provider to help us with increased monitoring of his airway as well as his Electronically Signed By: BÁRBARA DALEY MD 10/17/18 0629 PATIENT NAME: ROLAND MARIN OPERATIVE REPORT DATE OF : [birth year] REPORT #: [id number] PHYSICIAN: BÁRBARA DALEY MD PCP: EMA COKER MD REPORT IS CONFIDENTIAL AND NOT TO BE RELEASED WITHOUT AUTHORIZATION [facility] [address] [place], [place] [address] Signed anesthesia. They had expressed understanding and wished to proceed. PROCEDURE NOTE: Roland was taken into our endoscopy suite and placed in the supine semi-recumbent position. He was placed under general endotracheal tube anesthesia per our nurse electronic scale tester. After this, a bite block was placed and the adult gastroscope was introduced and easily advanced down in the stomach itself. It was very clear he had some moderate diffuse gastritis throughout the entire stomach. He had a fairly long stomach and we ran the gastroscope right up to the handle and we just made it into the antrum where it opens into the pylorus. The antrum was a little bit long and we simply could not pass the scope through that area. I have a feeling it was about 36-Nepali, maybe slightly smaller but not by much. I saw it briefly into the pyloric bulb and it seemed to be okay. Of course, we never made it through the opening of the antrum. The scope was then brought back a bit and we went ahead and took a biopsy of his antrum for pathologic review as well as CLOtest. We could easily localize his gastrostomy tube and sure enough he probably had a nearly 1 cm that was of additional length. Consequently, we took that out after we withdrew the 5 mL of sterile water and we replaced it with his new 18-Nepali 2.0 cm length gastrostomy tube and we inflated the balloon with fresh 5 mL of sterile water. We looked at that carefully and there was about 2 or 3 mm of additional length. We did not feel like there was any due pressure and therefore our concerns for pressure necrosis are not particularly heightened. After this, we went ahead and retroflexed the scope and of course we can see his tkark-vw-htpwvtjp sized hiatal hernia. No ulcerations in the stomach and no bleeding. The scope was withdrawn up to the GE junction, which was compliant without stricture. He does have some disruption to the Z-line, but no obvious esophagitis in the distal middle or upper esophagus. After this, the gas was suctioned out, the gastroscope removed. Roland was then awakened from his anesthesia, extubated in the OR, and taken to recovery room in stable condition. RECOMMENDATIONS: Roland will be returned to his room on the internal medicine service. He can certainly resume tube feeds this afternoon. I think the gastritis in the mild gastric outlet obstruction is more worrisome than the G-tube. Consequently, I increased his Nexium to twice a day and he will stay on the sucralfate as well. Bárbara Daley MD ALB/MODL Electronically Signed By: BÁRBARA DALEY MD 10/17/18 0629 PATIENT NAME: ROLAND MARIN OPERATIVE REPORT DATE OF : [birth year] REPORT #: [id number] PHYSICIAN: BÁRBARA DALEY MD PCP: EMA COKER MD REPORT IS CONFIDENTIAL AND NOT TO BE RELEASED WITHOUT AUTHORIZATION [address] [place], [place] [address] Signed /[id number] cc: MD Bárbara Edwards MD Copies: EMA COKER MD, ANDREW L MD ~ Electronically Signed By: BÁRBARA DALEY MD 10/17/18 0629 PATIENT NAME: ROLAND MARIN OPERATIVE REPORT DATE OF : [birth year] REPORT #: [id number] PHYSICIAN: BÁRBARA DALEY MD PCP: EMA COKER MD REPORT IS CONFIDENTIAL AND NOT TO BE RELEASED WITHOUT AUTHORIZATION
--- NOTE | 2018-10-17 06:31 | NUR ---
PATIENT HAS BEEN SLEEPING SINCE ABOUT 0415 AFTER RT ASSIST TO SUCTION AND PRN MEDS. PATIENT'S MOTHER AND THIS RN DISCUSSED CARES THIS MORNING. WILL WAIT ON VS AND LABS FOR NOW TO ALLOW PATIENT TO REST. DISCUSSED WITH WITH MUSIC SPECIALIST.
--- NOTE | 2018-10-17 09:59 | NUR ---
PT HOYERED BACK TO BED PER PT REQUEST. APPEARS MORE COMFORTABLE BUT STILL CRYING OUT. ADMINISTERED 1MG OF DILAUIDID. PT TRYING TO SLEEP BUT WAKES UP CRYING. VS ASSESSED AND HR RANGES FROM 113-140. CAREGIVER IN ROOM. GIVEN FEEDING AND FREE WATER WITH PILLS.
--- NOTE | 2018-10-17 10:43 | NUR ---
PT STILL APPEARS VERY UNCOMFORTABLE. UNABLE TO VOCALIZE WHAT IS HURTING. PT GIVEN ATIVAN, CHANGED AND REPOSITIONED ON SIDE FOR COMFORT. PT HAS 1LNC ON CAREGIVER STATES HE SLEEPS WITH IT.
--- NOTE | 2018-10-17 10:43 | NUR ---
PATIENT WAS CHANGED AND GOTTEN UP TO CHAIR FOR THE MORNING. NOW HE IS BACK IN BED. CAREGIVER IN ROOM. NO FURTHER NEEDS AT THIS TIME.
--- NOTE | 2018-10-17 13:45 | NUR ---
CALLED [facility] REGARDING BLOOD CULTURE RESULTS. THEY SAID THEY HAVE BEEN NEGATIVE SO FAR AND THEY WILL POST THAT TOMORROW.
--- NOTE | 2018-10-17 15:36 | NUR ---
PATIENT IN BED RESTING. HE WAS CHANGED BEFORE HE WENT TO SLEEP. CALL LIGHT IN REACH. CAREGIVER IN ROOM. NO FURTHER NEEDS AT THIS TIME.
--- NOTE | 2018-10-17 15:41 | NUR ---
HAD KITCHEN BRING UP MORE VITALS 1.5. ADMINISTERED ANOTHER 100ML TO INCREASE TO 150. PT SLEPT THROUGH IT. ADMINISTERED GABAPENTIN. PT TOLERATED WELL. CEMENT TESTER ASSISTANT IN ROOM.
--- NOTE | 2018-10-17 17:59 | NUR ---
CHANGED AND REPOSITIONED PT. APPEARS MORE COMFORTABLE BUT STILL CRYING OUT AND MOANING. VENTED G TUBE.
--- NOTE | 2018-10-17 18:17 | NUR ---
OK TO LEAVE IV IN FOR THE NIGHT AND REEVALUATE TOMORROW. PER DR ORELLANA. MAY OR MAY NOT DC TOMORROW.
--- NOTE | 2018-10-17 19:05 | NUR ---
SHIFT REPORT RECEIVED. PATIENT RESTING IN BED. APPEARS COMFORTABLE AND CALM AT THIS TIME. CAREGIVER REPORTS "I JUST CHANGED HIM AND REPOSITIONED HIM, BUT HE STILL SEEMS UNCOMFORTABLE". WILL CONTINUE TO MONITOR.
--- NOTE | 2018-10-17 21:08 | NUR ---
PATIENT APPEARS TO BE RESTING COMFORTABLY. RR 20. VS STABLE, BP REPORTED TO MD FOR HYPOTENSION. PATIENT'S EVENING MEDS PROVIDED THROUGH G-TUBE, NO RESIDUAL NOTED. 100ML TUBE FEEDING AND 250ML FREE WATER PROVIDED WITH MEDS. PATIENT HAS SOME UPPER AIRWAY CONGESTION, LUNGS ARE COARSE. TOLERATING 1.5L NC. ABD SOFT, BOWEL SOUNDS ACTIVE. CAREGIVER AT BEDSIDE. IV FLUIDS PER ORDER, SITE WNL.
--- NOTE | 2018-10-17 21:45 | NUR ---
PATIENT RESTING IN BED, SOME SECREATIONS HEARD WITH BREATHING. MODERATE AMOUNT OF SECREATIONS REMOVED WITH SUCTION. PATIENT CONTINUES TO SLEEP SOUNDLY. RR 18. PATIENT'S ATTENDS RECENTLY CHANGED BY CAREGIVER. NO BM, BUT MODERATE AMOUNT OF URINE. NO FURTHER NEEDS AT THIS TIME.
--- NOTE | 2018-10-17 22:20 | NUR ---
PATIENT CONTINUES TO SLEEP SOUNDLY. RR 20. CAREGIVER PROVIDING ORAL SUCTION NEEDED. ASSIST IN REPOSITIONING PATIENT, ATTENDS DRY. IV SITE WNL.
--- NOTE | 2018-10-18 00:30 | NUR ---
PATIENT STARTING TO BECOME RESTLESS. CAREGIVER STATES HE HAS CALLED OUT A FEW TIMES AND APPEARS UNCOMFORTABLE. PRN OXY PROVIDED. PATIENT REPOSITIONED FOR COMFORT. ATTENDS ARE DRY. CAREGIVER REQUEST STAFF SIT WITH PATIENT SO SHE CAN GO TO HER CAR. SANDY ADAM IN ROOM.
--- NOTE | 2018-10-18 01:30 | NUR ---
PATIENT APPEARS RESTFUL. BREATHING EASY AND NONLABORED. RR 20. CAREGIVER AT BEDSIDE. DENIES NEEDS.
--- NOTE | 2018-10-18 03:21 | NUR ---
PATIENT CONTINUES TO SLEEP SOUNDLY. RECENT ATTENDS CHANGE BY CAREGIVER. RR 20. NO NEEDS AT THIS TIME.
--- NOTE | 2018-10-18 03:42 | NUR ---
PATIENT'S G-TUBE VENTED, MINIMAL GAS NOTED. PATIENT APPEARS TO BE RESTING COMFORTABLY. RR 20. ATTENDS DRY.
--- NOTE | 2018-10-18 04:47 | NUR ---
PATIENT CALLING OUT. CAREGIVER REPORTS HAVING TO SUCTION MORE FREQUENTLY IN THE LAST 30 MINS. PATIENT IS ALERT, LOOKING AROUND, ARCHING HIS BACKS AND YELLING. PATIENT OCCATIONALLY SEEMS TO BE HOLDING HIS BREATH WELL. PRN OXY PROVIDED. PATIENT'S ATTENDS WET AND SMALL STOOL. IAM CARE PERFORMED, RED AREA NOTED IN CREASE OF LEGS. BARRIER CREAM APPLIED. NYSTATIN PER ORDERS. PATIENT REPOSITIONED PER CAREGIVER INSTRUCTIONS. PATIENT APPEARS MORE COMFORTABLE. CAREGIVER AT BEDSIDE.
--- NOTE | 2018-10-18 05:19 | NUR ---
PATIENT CONTINUES TO CALL OUT, CAREGIVER DOESN'T BELIEVE THEY ARE PAINFUL NOISES. "JUST TALKING TO ME". SANDY ADAM IN ROOM TO ASSIST WITH ATTENDS CHANGE.
--- NOTE | 2018-10-18 05:20 | NUR ---
PATIENT SLEPT SOUNDLY FOR MOST OF THE SHIFT. OCCATIONAL SIGNS OF PAIN, PRN OXY X2. PATIENT AWAKE THIS MORNING AND APPEARS CALMER THAN PREVIOUS MORNING. PATIENT HAS REQUIRED PRN ORAL SUCTIONING, 1.5L NC. VS STABLE. ABD SOFT AND 1 SOFT BM TODAY. URINE OUTPUT QS. IV FLUIDS PER ORDER. REPOSITIONED Q2H AND PRN. G-TUBE VENTED MULTIPLE TIMES, MINIMAL GAS THIS SHIFT. MEDS VIA G-TUBE WITH WATER FLUSHES. PATIENT TOLERATES WELL. CAREGIVER AT BEDSIDE.
--- NOTE | 2018-10-18 06:33 | NUR ---
PATIENT'S VS DONE BY KNOT TIER. LAB IN TO DRAW PATIENT'S BLOOD, REQUIRING MULTIPLE ATTEMPTS. PATIENT NOW MORE AGITATED, CALLING OUT. ORAL SUCTIONING AND ORAL CLEANING PROVIDED. G-TUBE VENTED, MINIMAL GAS. PATIENT ABLE TO REST AFTER STIMILI STOP. WILL CONTINUE TO MONITOR NEEDS FOR PRN ATIVAN.
--- NOTE | 2018-10-18 07:25 | NUR ---
REPORT RECIEVED FROM CYLINDER PRESS OPERATOR HELPER RN. PT IN BED, ON RIGHT SIDE. CAREGIVER AT BEDSIDE. LR AT 125. PT WITH GRIMACING AND BEING VERY VERBAL, APEARING UNCOMFORTABLE. ATIVAN ADMINSITERED. CALL LIGHT IN REACH. WILL CON TO MONITOR
--- NOTE | 2018-10-18 08:01 | NUR ---
PATIENT RESTING IN BED. CAREGIVER IN ROOM. CALL LIGHT WITHIN REACH. NO OTHER NEEDS AT THIS TIME
--- NOTE | 2018-10-18 09:00 | NUR ---
MEDICAIOTIONS ADMINISTERED VIA G TUBE. PT AWAKE, AND APEARS COMFORTABLE. PAIN MEDICATION GIVEN PER CAREGIVER REQUEST TO PREVENT PAIN. 180 ML FLUSHED. PT TOLERATED WELL. CAREGIVER REQUESTED TO WAIT ON FEEDING. CALL LIGHT IN REACH. NO FURTHER NEEDS.
--- NOTE | 2018-10-18 10:12 | NUR ---
PATIENT RESTING IN BED. RN AND CAREGIVER IN ROOM. VITAL SIGNS AND I&O DONE BY RN. CALL LIGHT WITHIN REACH. NO OTHER NEEDS AT THIS TIME
--- NOTE | 2018-10-18 11:56 | NUR ---
PURED BURGER FOR DINNER THROUGH G-TUBE GIVEN. PT TOLERATED WELL WITH NO VISUAL SIGNS OF PAIN OR DISCOMFORT WITH FEEDING.
--- NOTE | 2018-10-18 12:30 | NUR ---
AGITATION APPEARS TO BE INCREASING, PT IS TENSING BODY, SREAMING OUT, SKIN CLAMMY & HOT, HEART RATE OF 126. TEMP TAKEN AND WNL. DR ORELLANA NOTIFIED. APRAZOLAM PRN ADMINISTERED. WILL CONT TO MONITOR.
--- NOTE | 2018-10-18 13:49 | NUR ---
PATIENT RESTING IN BED. CAREGIVER AND MOM IN ROOM. VITAL SIGNS AND I&O DONE. CALL LIGHT WITHIN REACH. NO OTHER NEEDS AT THIS TIME
[2018-10-18] MEDS ORDERED: GABAPENTIN400 MG PO (14:37)
[2018-10-18] MEDS ORDERED: HEALTHYLAX17 GM PT (14:38)
[2018-10-18] MEDS ORDERED: RANITIDINE15 MG/1 ML PT (14:40)
[2018-10-18] MEDS ORDERED: NEXIUM40 M1 PT (14:42)
[2018-10-18] MEDS ORDERED: OXYCODONE HCL5 MG PO (14:44)
--- NOTE | 2018-10-18 15:38 | NUR ---
PATIENT SITTING UP IN WHEELCHAIR. FAMILY IN ROOM. FINAL VITAL SIGNS WERE OBTAINED PRIOR TO DISCHARGE FROM THE UNIT.
== END 2018-10-18 16:05 | disposition home or self-care (01) | DRG 872 ==
LOC: ED 07:27 → MS 12:08 → CCU 12:08 → MS 10-13 17:20
PROVIDERS: Colon & Rectal Surgery; ADMIT Internal Medicine
PROC: 0D20XUZ Change Feeding Device in Upper Intestinal Tract, External Approach (ICD-10-PCS; 2018-10-16)
PROC: 0DB78ZX Excision of Stomach, Pylorus, Via Natural or Artificial Opening Endoscopic, Diagnostic (ICD-10-PCS; principal; 2018-10-16 10:00)
DX: A41.81 Sepsis due to Enterococcus (principal); N39.0 Urinary tract infection, site not specified; K31.1 Adult hypertrophic pyloric stenosis; J96.11 Chronic respiratory failure with hypoxia; K44.9 Diaphragmatic hernia without obstruction or gangrene; G80.9 Cerebral palsy, unspecified; R56.9 Unspecified convulsions; K29.70 Gastritis, unspecified, without bleeding; K21.9 Gastro-esophageal reflux disease without esophagitis; G89.29 Other chronic pain; G89.4 Chronic pain syndrome; R21 Rash and other nonspecific skin eruption; K59.00 Constipation, unspecified; Z93.1 Gastrostomy status; Z79.899 Other long term (current) drug therapy; Z88.1 Allergy status to other antibiotic agents; Z88.5 Allergy status to narcotic agent
CPT/HCPCS: 36415; 51798; 71045; 74018; 74177; 80048; 80053; 80202; 81001; 82550; 83605; 83735; 84100; 84443; 85025; 85610; 85651; 85730; 86677; 87040; 87088; 87493; 88305; 94760; 96361; 99285-25; J1100; J1170; J1650; J1956; J2060; J2250; J2405; J2704; J3010; J3370; J3475; J3480; J7030; J7060; J7070; J7120; Q9967

== ENCOUNTER 2019-09-06 15:48 | Emergency (ER) | payer OTHER ==
[~2019-09-06] VITALS: Ht 167.6 cm; Wt 43.3 kg
[~2019-09-06 15:48] MED LIST changes: +CIPRO500 MG PT; +CLINDAMYCIN HC300 MG PO; +CYPROHEPTAD2 MG/5 ML PO; +EPIDIOLEX100 MG/1 M PO; +FLUVOXAMINE MAL25 MG PO; +FLUVOXAMINE MAL50 MG PO; +GABAPENTIN400 MG PO; +HEALTHYLAX17 GM PT; +LORAZEPAM2 MG/1 M2 PO; +RANITIDINE15 MG/1 ML PT
--- OUTSIDE RECORDS SUMMARY | 2019-09-06 15:50 | XMS ---
PreManage Notification: ROLAND MARIN Security Supervisor Inspection Events No recent Security Events currently on file CRITERIA MET - History of Sepsis Dx - PDMP CARE PROVIDERS EMA KARIMI [facility] 05/22/2015-Current PHONE: Unknown Ema Karimi [facility] PHONE: Unknown [facility] 05/22/2015-[facility] PHONE: Unknown [facility] 05/22/2015-[facility] PHONE: [phone] EMA KARIMI [facility]/2015-Current PHONE: [phone] John has no Care Guidelines for this patient. Clementina VISIT COUNT (12 MO.) [address] [facility] TOTAL 3 NOTE: Visits indicate total known visits. ED/UCC VISIT TRACKING (12 MO.) 09/06/2019 15:49 [facility] TYPE: Emergency COMPLAINT: - FALL, PAIN 02/10/2019 20:52 [facility] TYPE: Emergency COMPLAINT: - PAIN/POSS INFECTION DIAGNOSES: - Allergy status to other antibiotic agents status - Cellulitis of left upper limb - Other prison (current) drug therapy - Cellulitis of abdominal wall - Allergy status to narcotic agent status 10/12/2018 07:27 [facility] TYPE: Emergency COMPLAINT: - FEVER/PAIN INPATIENT VISIT TRACKING (12 MO.) 10/12/2018 12:[address] [facility] TYPE: Medical Surgical COMPLAINT: - SEPSIS DIAGNOSES: - Chronic respiratory failure with hypoxia - Gastritis, unspecified, without bleeding - Unspecified convulsions - Diaphragmatic hernia without obstruction or gangrene - Gastrostomy status - Gastrostomy status - Constipation, unspecified - Other prison (current) drug therapy - Allergy status to other antibiotic agents status - Allergy status to narcotic agent status - Constipation, unspecified - Gastritis, unspecified, without bleeding - Chronic pain syndrome - Other chronic pain - Cerebral palsy, unspecified - Unspecified convulsions - Adult hypertrophic pyloric stenosis - Allergy status to narcotic agent status - Sepsis due to Enterococcus Sepsis du - Chronic pain syndrome - Other chronic pain - Urinary tract infection, site not specified - Sepsis, unspecified organism Sepsis, u - Rash and other nonspecific skin eruption - Chronic respiratory failure with hypoxia - Rash and other nonspecific skin eruption - Cerebral palsy, unspecified - Allergy status to other antibiotic agents status - Other prison (current) drug therapy - Diaphragmatic hernia without obstruction or gangrene - Gastro-esophageal reflux disease without esophagitis - Sepsis due to Enterococcus Sepsis du - Urinary tract infection, site not specified - Adult hypertrophic pyloric stenosis - Gastro-esophageal reflux disease without esophagitis [email or web address]
[2019-09-06] MEDS ORDERED: LIORESAL I10 MG/5 ML XX (16:12)
== END 2019-09-06 18:14 | disposition home or self-care (01) ==
LOC: ED 15:48
DX: S16.1XXA Strain of muscle, fascia and tendon at neck level, initial encounter (principal); S39.012A Strain of muscle, fascia and tendon of lower back, initial encounter; S00.83XA Contusion of other part of head, initial encounter; K21.9 Gastro-esophageal reflux disease without esophagitis; Z79.899 Other long term (current) drug therapy; W18.30XA Fall on same level, unspecified, initial encounter
CPT/HCPCS: 70450; 72125; 72131; 99284-25

== ENCOUNTER 2020-11-19 08:00 | Emergency (ER) | payer OTHER ==
[~2020-11-19] VITALS: Ht 167.6 cm; Wt 43.1 kg
[~2020-11-19 08:00] MED LIST changes: +LIORESAL I10 MG/5 ML XX
--- OUTSIDE RECORDS SUMMARY | 2020-11-19 08:06 | XMS ---
PreManage Notification: ROLAND MARIN Security Food Expeditor Events No recent Security Events currently on file CRITERIA MET - History of Sepsis CARE PROVIDERS EMA COKER [facility] 05/22/2015-Current PHONE: [phone] John has no Care Guidelines for this patient. EErasto VISIT COUNT (12 MO.) 1 [facility] TOTAL 1 NOTE: Visits indicate total known visits. ED/UCC VISIT TRACKING (12 MO.) 11/19/2020 08:00 [facility] TYPE: Emergency COMPLAINT: - BODY PAIN INPATIENT VISIT TRACKING (12 MO.) No inpatient visits to display in this time frame [email or web address]
[2020-11-19] MEDS ORDERED: OXYBUTYNIN CHLOR5 MG PO (08:24)
[2020-11-19] MEDS ORDERED: CIPROFLOXACIN500 MG PO (08:24)
[2020-11-19] MEDS ORDERED: HYDROCODON-ACE1 EAC8 PO (13:28)
== END 2020-11-19 13:39 | disposition home or self-care (01) ==
LOC: ED 08:00
DX: L76.34 Postprocedural seroma of skin and subcutaneous tissue following other procedure (principal); K21.9 Gastro-esophageal reflux disease without esophagitis; Z88.5 Allergy status to narcotic agent; Z88.1 Allergy status to other antibiotic agents; Z79.899 Other long term (current) drug therapy
CPT/HCPCS: 80053; 83605; 85025; 87040; 96372; 99284; J1885

== ENCOUNTER 2021-02-06 18:08 | Emergency (ER) | payer OTHER ==
[~2021-02-06] VITALS: Ht 167.6 cm; Wt 37.6 kg
[~2021-02-06 18:08] MED LIST changes: +CIPROFLOXACIN500 MG PO; +HYDROCODON-ACE1 EAC8 PO; +OXYBUTYNIN CHLOR5 MG PO
--- OUTSIDE RECORDS SUMMARY | 2021-02-06 18:12 | XMS ---
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 EDiaz. VISIT COUNT (12 MO.) [address] TOTAL 5 NOTE: Visits indicate total known visits. ED/UCC VISIT TRACKING (12 MO.) 02/06/2021 18:09 [facility] TYPE: Emergency COMPLAINT: - HEADACHE, ABD PAIN 01/30/2021 08:16 [facility] TYPE: Emergency DIAGNOSES: 31331. Wound check . Presence of other specified devices . Urinary tract infection, site not specified . Inflammatory disease of prostate, unspecified 01/29/2021 21:27 [facility] TYPE: Emergency DIAGNOSES: 22949. Poss wound infection 12/17/2020 15:23 [facility] TYPE: Emergency DIAGNOSES: 05340. post op issues 11/19/2020 08:00 [facility] TYPE: Emergency COMPLAINT: - BODY P5 DIAGNOSES: - Postprocedural seroma of skin and subcutaneous tissue following other procedure - Gastro-esophageal reflux disease without esophagitis - Postprocedural seroma of a digestive system organ or structure following other procedure - Other fpc (current) drug therapy - Allergy status to narcotic agent - Allergy status to other antibiotic agents INPATIENT VISIT TRACKING (12 MO.) 12/17/2020 15:23 [facility] TYPE: Neuro Surgery DIAGNOSES: 42885. post op issues 62137. Sepsis, unspecified organism 70278. Disruption of external operation (surgical) wound, not elsewhere classified, sequela 91769. Infection following a procedure, other surgical site, initial encounter 03383. Disruption of wound, unspecified, initial encounter 11/28/2020 05:58 [facility] TYPE: Neuro Surgery DIAGNOSES: 51584. Breakdown (mechanical) of other nervous system device, implant or graft, initial encounter 24176. Cerebral palsy, unspecified 57288. Cerebral palsy, unspecified [id number]
[2021-02-06] MEDS ORDERED: SULFAMETHOXAZO1 EAC1 PO (18:59)
[2021-02-06] MEDS ORDERED: LORAZEPAM1 MG PO (18:59)
[2021-02-06] MEDS ORDERED: DOXYCYCLINE MO100 M1 PO (18:59)
[2021-02-06] MEDS ORDERED: ONDANSETRON HCL8 MG PO (19:00)
[2021-02-06] MEDS ORDERED: ZANAFLEX4 MG PO (19:00)
== END 2021-02-06 22:40 | disposition home or self-care (01) ==
LOC: ED 18:08
DX: R51.9 Headache, unspecified (principal); R10.9 Unspecified abdominal pain; K21.9 Gastro-esophageal reflux disease without esophagitis; Z88.5 Allergy status to narcotic agent; Z88.8 Allergy status to other drugs, medicaments and biological substances; Z88.0 Allergy status to penicillin; Z88.1 Allergy status to other antibiotic agents; Z79.899 Other long term (current) drug therapy
CPT/HCPCS: 70450; 74177; 80053; 81001; 83735; 85025; 96375; 99284-25; J1200; J1885; J2765; J7030

== ENCOUNTER 2021-02-19 17:06 | Emergency (ER) | payer OTHER ==
[~2021-02-19] VITALS: Ht 167.6 cm; Wt 39.5 kg
[~2021-02-19 17:06] MED LIST changes: +DOXYCYCLINE MO100 M1 PO; +LORAZEPAM1 MG PO; +ONDANSETRON HCL8 MG PO; +SULFAMETHOXAZO1 EAC1 PO
--- OUTSIDE RECORDS SUMMARY | 2021-02-19 17:08 | XMS ---
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 - 2 Visits in 30 Days - 6 ED Visits in 6 Months - PDMP CARE PROVIDERS EMA COKER [facility] 05/22/2015-Current PHONE: [phone] John has no Care Guidelines for this patient. E.D. VISIT COUNT (12 MO.) [address] TOTAL 6 NOTE: Visits indicate total known visits. ED/UCC VISIT TRACKING (12 MO.) 02/19/2021 17:07 [facility] TYPE: Emergency COMPLAINT: - CONSTIPATION 02/06/2021 18:09 [facility] TYPE: Emergency COMPLAINT: - HEADACHE, ABD PAIN 01/30/2021 08:16 [facility] TYPE: Emergency DIAGNOSES: 31398. Wound check . Presence of other specified devices . Urinary tract infection, site not specified . Inflammatory disease of prostate, unspecified 01/29/2021 21:27 [facility] TYPE: Emergency DIAGNOSES: 75027. Poss wound infection 12/17/2020 15:23 [facility] TYPE: Emergency DIAGNOSES: 05901. 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 TYPE: Neuro Surgery DIAGNOSES: 25025. post op issues 45754. Sepsis, unspecified organism 65503. Disruption of external operation (surgical) wound, not elsewhere classified, sequela 10686. Infection following a procedure, other surgical site, initial encounter 88362. Disruption of wound, unspecified, initial encounter 11/28/2020 05:58 [facility] TYPE: Neuro Surgery DIAGNOSES: 22999. Breakdown (mechanical) of other nervous system device, implant or graft, initial encounter 50692. Cerebral palsy, unspecified . Cerebral palsy, unspecified [email or web address]
[2021-02-19] MEDS ORDERED: ESOMEPRAZOLE MA40 M1 PO (17:33)
[2021-02-19] MEDS ORDERED: XANAX1 MG PO (17:36)
== END 2021-02-19 20:30 | disposition home or self-care (01) ==
LOC: ED 17:06
DX: K59.01 Slow transit constipation (principal); K21.9 Gastro-esophageal reflux disease without esophagitis; Z88.0 Allergy status to penicillin; Z88.5 Allergy status to narcotic agent; Z88.1 Allergy status to other antibiotic agents; Z79.899 Other long term (current) drug therapy
CPT/HCPCS: 51702; 74177; 80053; 81001; 83690; 83735; 85025; 87088; 99284-25; J2405; J3010; J7040; Q9967

== ENCOUNTER 2021-03-22 11:48 | Emergency (ER) | payer OTHER ==
[~2021-03-22] VITALS: Ht 167.6 cm; Wt 39.6 kg
[~2021-03-22 11:48] MED LIST changes: +ESOMEPRAZOLE MA40 M1 PO; +XANAX1 MG PO
--- OUTSIDE RECORDS SUMMARY | 2021-03-22 11:52 | XMS ---
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 E.Tenisha. VISIT COUNT (12 MO.) 3 [facility] [place] [address] [facility] TOTAL 7 NOTE: Visits indicate total known visits. ED/UCC VISIT TRACKING (12 MO.) 03/22/2021 11:49 [facility] TYPE: Emergency COMPLAINT: - L LOWER ABD WOUND, DRAINING 02/19/2021 17:07 [facility] TYPE: Emergency COMPLAINT: - CONSTIPATION DIAGNOSES: - Other specified diseases of esophagus - Allergy status to other antibiotic agents - Other penitentiary (current) drug therapy - Allergy status to narcotic agent - Allergy status to penicillin - Slow transit constipation - Gastro-esophageal reflux disease without esophagitis - Constipation, unspecified - Presence of other specified devices 02/06/2021 18:09 [facility] TYPE: Emergency COMPLAINT: - HEADACHE, ABD PAIN DIAGNOSES: - Allergy status to other drugs, medicaments and biological substances - Allergy status to other antibiotic agents - Gastro-esophageal reflux disease without esophagitis - Allergy status to narcotic agent - Headache, unspecified - Other penitentiary (current) drug therapy - Unspecified abdominal pain - Allergy status to penicillin 01/30/2021 08:16 [facility] TYPE: Emergency DIAGNOSES: 28661. Wound check . Presence of other specified devices . Urinary tract infection, site not specified . Inflammatory disease of prostate, unspecified 01/29/2021 21:27 [facility] TYPE: Emergency DIAGNOSES: 96510. Poss wound infection 12/17/2020 15:23 [facility] TYPE: Emergency DIAGNOSES: 60987. post op issues 11/19/2020 08:00 [facility] TYPE: Emergency COMPLAINT: - BODY P5 DIAGNOSES: - Postprocedural seroma of skin and subcutaneous tissue following other procedure - Gastro-esophageal reflux disease without esophagitis - Postprocedural seroma of a digestive system organ or structure following other procedure - Other penitentiary (current) drug therapy - Allergy status to narcotic agent - Allergy status to other antibiotic agents INPATIENT VISIT TRACKING (12 MO.) 12/17/2020 15:23 [facility] TYPE: Neuro Surgery DIAGNOSES: 25940. post op issues 27852. Sepsis, unspecified organism 29735. Disruption of external operation (surgical) wound, not elsewhere classified, sequela 84011. Infection following a procedure, other surgical site, initial encounter 76597. Disruption of wound, unspecified, initial encounter 11/28/2020 05:58 [facility] TYPE: Neuro Surgery DIAGNOSES: 00644. Breakdown (mechanical) of other nervous system device, implant or graft, initial encounter 54007. Cerebral palsy, unspecified 74249. Cerebral palsy, unspecified [email or web address]
== END 2021-03-22 16:19 | disposition short-term general hospital (02) ==
LOC: ED 11:48
DX: T85.695A Other mechanical complication of other nervous system device, implant or graft, initial encounter (principal); K21.9 Gastro-esophageal reflux disease without esophagitis; Z20.822 Contact with and (suspected) exposure to COVID-19; Z88.5 Allergy status to narcotic agent; Z88.0 Allergy status to penicillin; Z88.1 Allergy status to other antibiotic agents; Z79.899 Other long term (current) drug therapy
CPT/HCPCS: 80053; 85025; 99284; C9803; U0003

== ENCOUNTER 2021-12-29 15:48 | Emergency (ER) | payer OTHER ==
[~2021-12-29] VITALS: Ht 167.6 cm; Wt 43.7 kg
--- OUTSIDE RECORDS SUMMARY | 2021-12-29 15:51 | XMS ---
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 EErasto VISIT COUNT (12 MO.) 3 [facility] 4 [facility] TOTAL 7 NOTE: Visits indicate total known visits. ED/UCC VISIT TRACKING (12 MO.) 12/29/2021 15:49 [facility] TYPE: Emergency COMPLAINT: - BLOOD IN URINE 03/22/2021 19:26 [facility] TYPE: Emergency DIAGNOSES: 74704. POST OP CONCERN 03/22/2021 11:49 [facility] TYPE: Emergency COMPLAINT: - L LOWER ABD WOUND, DRAINING DIAGNOSES: - Allergy status to narcotic agent - Allergy status to other antibiotic agents - Allergy status to penicillin - Other postprocedural complications of skin and subcutaneous tissue - Gastro-esophageal reflux disease without esophagitis - Other nursing home (current) drug therapy - Other mechanical complication of other nervous system device, implant or graft, initial encounter 02/19/2021 17:07 [facility] TYPE: Emergency COMPLAINT: - CONSTIPATION DIAGNOSES: - Other specified diseases of esophagus - Allergy status to other antibiotic agents - Other filler leaf cutter long (current) drug therapy - Allergy status to [...] narcotic agent - Headache, unspecified - Other nursing home (current) drug therapy - Unspecified abdominal pain - Allergy status to penicillin 01/30/2021 08:16 [facility] TYPE: Emergency DIAGNOSES: 78808. Wound check . Presence of other specified devices . Urinary tract infection, site not specified . Inflammatory disease of prostate, unspecified 01/29/2021 21:27 [facility] TYPE: Emergency DIAGNOSES: 25066. Poss wound infection INPATIENT VISIT TRACKING (12 MO.) 03/22/2021 19:26 [facility] TYPE: Neuro Surgery DIAGNOSES: 29751. Breakdown (mechanical) of cranial or spinal infusion catheter, initial encounter 02073. Infection following a procedure, other surgical site, initial encounter 43354. Sepsis, unspecified organism 47333. Disruption of external operation (surgical) wound, not elsewhere classified, sequela 41716. Cerebral palsy, unspecified 08462. Infection following a procedure, other surgical site, initial encounter [email or web address]
== END 2021-12-29 20:14 | disposition home or self-care (01) ==
LOC: ED 15:48
DX: N39.0 Urinary tract infection, site not specified (principal); K21.9 Gastro-esophageal reflux disease without esophagitis; Z79.899 Other long term (current) drug therapy; Z88.1 Allergy status to other antibiotic agents; Z88.5 Allergy status to narcotic agent; Z88.0 Allergy status to penicillin
CPT/HCPCS: 36415; 80053; 81001; 83605; 85025; J0696; J7030